=== PATIENT | male | born 1950 | race Asian ===

== ENCOUNTER 2017-08-18 06:38 | Inpatient (IN) | payer OTHER ==
[2017-08-18 06:54] VITALS: BMI 25.7
--- NOTE | 2017-08-18 06:58 | PDOC ---
History of Present Illness - General History Source: Family - History of Present Illness Initial Comments: 08/18/17 07:04 The patient is a 67 year old male, with a significant past medical history of TIA (2013), HTN, DM, HLD, cardiac cath September 2012, who presents to the emergency department brought in by family member for evaluation of slurred speech, left sided weakness, unsteady gait, generalized weakness and dizziness upon waking up this morning about 30 minutes prior to his ED arrival. The patient presents with family member who reportedly last saw the patient well before bed around midnight. As per the patient's family member, the patient is experiencing some dizziness at this time. He denies chest pain, shortness of breath, headache. He denies fever, chills, nausea, vomit, diarrhea and constipation. He denies dysuria, frequency, urgency and hematuria. Allergies: NKDA <Ene Cox - Last Filed: 08/18/17 07:04> - General History Source: Family Exam Limitations: Language Barrier <Mahin Calvillo - Last Filed: 08/18/17 19:44> - General Chief Complaint: CVA/TIA Stated Complaint: WEAKNESS Time Seen by Provider: 08/18/17 06:57 Past History <Ene Cox - Last Filed: 08/18/17 07:04> - Past Medical History Diabetes: Yes HTN: Yes Hypercholesterolemia: Yes - Suicide/Smoking/Psychosocial Hx Smoking Status: No Smoking History: Never smoked Have you smoked in the past 12 months: No Number of Cigarettes Smoked Daily: 0 Information on smoking cessation initiated: No Hx Alcohol Use: No Drug/Substance Use Hx: No Substance Use Type: None Hx Substance Use Treatment: No <Mahin Calvillo - Last Filed: 08/18/17 19:44> - Past Medical History Allergies/Adverse Reactions: Allergies Allergy/AdvReac Type Severity Reaction Status Date / Time No Known Allergies Allergy Verified 08/18/17 06:51 Home Medications: Ambulatory Orders Metformin HCl [Glucophage -] 500 mg PO BID 09/30/12 Acetaminophen/Caffeine/Butalb [Fioricet -] 1 each PO Q8H PRN #30 tablet Atorvastatin Ca [Lipitor] 40 mg PO HS #30 tablet 08/30/14 Clopidogrel Bisulfate [Plavix -] 75 mg PO DAILY #30 tablet 08/30/14 Gabapentin [Neurontin -] 100 mg PO DAILY #30 capsule 08/30/14 Ibuprofen [Motrin -] 600 mg PO Q6H PRN #30 tablet 08/30/14 Insulin (Novolog 70/30) [Novolog Mix 70/30 Flexpen -] 32 units SQ BIDAC #7 pen 08/30/14 Losartan Potassium [Cozaar -] 100 mg PO DAILY #30 tablet 08/30/14 Metoprolol Tartrate [Lopressor -] 25 mg PO BID #60 tablet 08/30/14 Aspirin [Children's Aspirin] 81 mg PO DAILY 08/18/17 Insulin Degludec [Tresiba Flextouch U-100] 15 unit SQ HS 08/18/17 Review of Systems - Review of Systems Able to Perform ROS?: Yes Comments:: 08/18/17 07:06 CONSTITUTIONAL: (+) generalized weakness, Absent: fever, chills, diaphoresis, malaise, loss of appetite HEENT: Absent: rhinorrhea, nasal congestion, throat pain, throat swelling, difficulty swallowing, mouth swelling, ear pain, eye pain, visual Changes CARDIOVASCULAR: Absent: chest pain, syncope, palpitations, irregular heart rate, lightheadedness , peripheral edema RESPIRATORY: Absent: cough, shortness of breath, dyspnea with exertion, orthopnea, wheezing, stridor, hemoptysis GASTROINTESTINAL: Absent: abdominal pain, abdominal distension, nausea, vomiting, diarrhea, constipation, melena, hematochezia GENITOURINARY: Absent: dysuria, frequency, urgency, hesitancy, hematuria, flank pain, genital pain MUSCULOSKELETAL: Absent: myalgia, arthralgia, joint swelling SKIN: Absent: rash, itching, pallor HEMATOLOGIC/IMMUNOLOGIC: Absent: easy bleeding, easy bruising, lymphadenopathy, frequent infections ENDOCRINE: Absent: unexplained weight gain, unexplained weight loss, heat intolerance, cold intolerance NEUROLOGIC: (+) dizziness, unsteady gait, left sided weakness. Absent: headache, focal paresthesias, seizure, mental status changes, bladder or bowel incontinence PSYCHIATRIC: Absent: anxiety, depression, suicidal or homicidal ideation, hallucinations. Is the patient limited Kiswahili proficient: Yes <Ene Cox - Last Filed: 08/18/17 07:04> *Physical Exam - Vital Signs Last Vital Signs Temp Pulse Resp BP Pulse Ox 97.7 F 87 14 170/107 97 08/18/17 06:51 08/18/17 06:51 08/18/17 06:51 08/18/17 06:51 08/18/17 06:51 - Physical Exam Comments: 08/18/17 07:08 GENERAL: Well developed, well nourished. Awake and alert. No acute distress. HEENT: Normocephalic, atraumatic. PERRLA, EOMI. No conjunctival pallor. Sclera are non- icteric. Moist mucous membranes. Oropharynx is clear. NECK: Supple. Full ROM. No JVD. Carotid pulses 2+ and symmetric, without bruits. No thyromegaly. No lymphadenopathy. CARDIOVASCULAR: Regular rate and rhythm. No murmurs, rubs, or gallops. Distal pulses are 2+ and symmetric. PULMONARY: No evidence of respiratory distress. Lungs clear to auscultation bilaterally. No wheezing, rales or rhonchi. ABDOMINAL: Soft. Non-tender. Non-distended. No rebound or guarding. No organomegaly. Normoactive bowel sounds. MUSCULOSKELETAL Normal range of motion at all joints. No bony deformities or tenderness. No CVA tenderness. EXTREMITIES: No cyanosis. No clubbing. No edema. No calf tenderness. SKIN: Warm and dry. Normal capillary refill. No rashes. No jaundice. NEUROLOGICAL: (+) slight slurred speech. Alert, awake, appropriate. Cranial nerves 2-12 intact. Normoreflexic in the upper and lower extremities. Toes are down-going bilaterally. PSYCHIATRIC: Cooperative. Good eye contact. Appropriate mood and affect. <Ene Cox - Last Filed: 08/18/17 07:04> - Vital Signs Last Vital Signs Temp Pulse Resp BP Pulse Ox 97.7 F 87 14 170/107 97 08/18/17 06:51 08/18/17 06:51 08/18/17 06:51 08/18/17 06:51 08/18/17 06:51 <Mahin Calvillo - Last Filed: 08/18/17 19:44> NIH Stroke Scale - Last Known Well Date/Time & Onset Date Last Known Well: 08/18/17 Time Last Known Well: 00:00 - Initial Evaluation Level of consciousness: Alert Ask patient the month and their age: Answers both correctly (helped by family member) Ask patient to open & close eyes; make fist and let go: Obeys both correctly ( helped by family) Best gaze (horizontal eye movement): Normal Visual field testing: No visual field loss Facial paresis (Show teeth/raise eyebrows/close eyes tight): Normal symmetrical movement Motor Function: Left Arm: Normal Motor Function: Right Arm: Normal (extends arm 90 (or 45) degrees for 10 seconds without drift Motor Function: Right Leg: Normal (extends leg 30 degrees for 5 seconds without drift) Limb Ataxia: No ataxia Sensory(Use pinprick test arms,legs,trunk,face/side to side): Normal Best language (Describe picture, name items, read sentences): Mild to moderate aphasia (possble as described by family member) Dysarthria (read several words): Mild to moderate slurring of words (possibly as described by family member) Extinction and Inattention: No abnormality <Mahin Calvillo - Last Filed: 08/18/17 19:44> Critical Care Time/MDM Note - Medical Decision Making Note: 08/18/17 07:09 Documentation prepared by Ene Cox, acting as medical appointment clerk for Mahin Calvillo DO <Ene Cox - Last Filed: 08/18/17 07:04> - Medical Decision Making Note: 08/18/17 19:44 Dr. Calvillo: The scribe's documentation has been prepared under my direction and personally reviewed by me in its entirery. I confirm that the note above accurately reflects all work, treatment, procedures, and medical decision making performed by me. <Mahin Calvillo - Last Filed: 08/18/17 19:44> Discharge Disposition <Ene Cox - Last Filed: 08/18/17 07:04> <Mahin Calvillo - Last Filed: 08/18/17 19:44> - Diagnosis Weakness, Cerebrovascular accident (CVA) - Discharge Dispostion Condition at time of disposition: Stable
[2017-08-18] MEDS ORDERED: SODIUM CHLORIDE 1,000 ML IV SCH (07:00)
[2017-08-18 07:29] LABS: BASOPHIL 0.7 % (0-2.0); EOSINOPHIL 1.3 % (0-4.5); MCHC 35.2 g/dl (32.0-35.9); MEAN CELL VOLUME 85.2 fl (80-96); NEUTROPHILS 69.7 % (42.8-82.8); PLATELET COUNT 157 K/MM3 (134-434); RDW 13.1 % (11.9-15.9); WHITE BLOOD COUNT 9.3 K/mm3 (4.0-10.0)
[2017-08-18 07:44] LABS: INR 0.97 (0.82-1.09)
[2017-08-18 08:06] LABS: URINE APPEARANCE CLEAR; URINE BILIRUBIN NEGATIVE (NEGATIVE); URINE COLOR LT. YELLOW; URINE GLUCOSE (UA) TRACE (NEGATIVE); URINE KETONE NEGATIVE (NEGATIVE); URINE NITRITE NEGATIVE (NEGATIVE); URINE PROTEIN NEGATIVE (NEGATIVE); URINE UROBILINOGEN 0.2 mg/dL (0.2-1.0)
[2017-08-18 08:09] LABS: URINE BLOOD TRACE (NEGATIVE)
[2017-08-18 08:15] LABS: ANION GAP 8 (8-16); BILIRUBIN,TOTAL 0.8 mg/dL (0.2-1.0); CALCIUM 8.5 mg/dL (8.5-10.1); CHOLESTEROL 111 mg/dL (50-200); CO2 26 mmol/L (21-32); CREATININE 0.9 mg/dL (0.7-1.3); GLUCOSE,RANDOM 95 mg/dL (74-106); SGPT/ALT 46 U/L (12-78); TOT PROT 8.1 g/dl (6.4-8.2)
[2017-08-18 08:16] LABS: ALK PHOS 98 U/L (45-117); CPK 193 IU/L (39-308); TROPONIN I < 0.02 ng/ml (0.00-0.05)
[2017-08-18 08:32] LABS: SGOT/AST 28 U/L (15-37)
[2017-08-18 08:35] LABS: URINE RBC <1 /hpf (0-3); URINE WBC <1 /hpf (3-5)
--- NOTE | 2017-08-18 08:53 | PDOC ---
*Physical Exam - Vital Signs Last Vital Signs Temp Pulse Resp BP Pulse Ox 97.7 F 87 14 170/107 97 08/18/17 06:51 08/18/17 06:51 08/18/17 06:51 08/18/17 06:51 08/18/17 06:51 <Carmita Gilman - Last Filed: 08/18/17 09:05> - Vital Signs Last Vital Signs Temp Pulse Resp BP Pulse Ox 97.7 F 87 14 170/107 97 08/18/17 06:51 08/18/17 06:51 08/18/17 06:51 08/18/17 06:51 08/18/17 06:51 <George Cobos - Last Filed: 08/18/17 09:10> ED Treatment Course - LABORATORY CBC & Chemistry Diagram: 08/18/17 07:10 08/18/17 07:10 - ADDITIONAL ORDERS Additional order review: Laboratory Results 08/18/17 08/18/17 08/18/17 08:11 07:50 07:10 PT with INR INR Sodium Potassium Chloride Carbon Dioxide Anion Gap BUN Creatinine Creat Clearance w eGFR POC Glucometer 100.08361 Random Glucose Calcium Total Bilirubin AST ALT Alkaline Phosphatase Creatine Kinase Troponin I Total Protein Albumin Triglycerides Cholesterol Total LDL Cholesterol HDL Cholesterol Urine Color Lt. yellow Urine Appearance Clear Urine pH 7.0 D Ur Specific [place] <= 1.005 Urine Protein Negative Urine Glucose (UA) Trace H Urine Ketones Negative Urine Blood Trace H Urine Nitrite Negative Urine Bilirubin Negative Urine Urobilinogen 0.2 Blood Type AB POSITIVE Antibody Screen Negative 08/18/17 08/18/17 07:10 07:10 PT with INR 11.00 INR 0.97 Sodium 140 Potassium 3.3 L Chloride 106 Carbon Dioxide 26 Anion Gap 8 BUN 17 Creatinine 0.9 Creat Clearance w eGFR > 60 POC Glucometer Random Glucose 95 Calcium 8.5 Total Bilirubin 0.8 D AST 28 D ALT 46 D Alkaline Phosphatase 98 D Creatine Kinase 193 Troponin I < 0.02 Total Protein 8.1 Albumin 4.0 Triglycerides 59 D Cholesterol 111 D Total LDL Cholesterol 62 D HDL Cholesterol 43 Urine Color Urine Appearance Urine pH Ur Specific [place] Urine Protein Urine Glucose (UA) Urine Ketones Urine Blood Urine Nitrite Urine Bilirubin Urine Urobilinogen Blood Type Antibody Screen 08/18/17 08/18/17 08:11 07:10 RBC 5.27 MCV 85.2 MCHC 35.2 RDW 13.1 MPV 9.0 Neutrophils % 69.7 Lymphocytes % 20.5 Monocytes % 7.8 Eosinophils % 1.3 Basophils % 0.7 POC Glucometer 100.45426 <Carmita Gilman - Last Filed: 08/18/17 09:05> - LABORATORY CBC & Chemistry Diagram: 08/18/17 07:10 08/18/17 07:10 - ADDITIONAL ORDERS Additional order review: Laboratory Results 08/18/17 08/18/17 08/18/17 08:11 07:50 07:10 PT with INR INR Sodium Potassium Chloride Carbon Dioxide Anion Gap BUN Creatinine Creat Clearance w eGFR POC Glucometer 100.55765 Random Glucose Calcium Total Bilirubin AST ALT Alkaline Phosphatase Creatine Kinase Troponin I Total Protein Albumin Triglycerides Cholesterol Total LDL Cholesterol HDL Cholesterol Urine Color Lt. yellow Urine Appearance Clear Urine pH 7.0 D Ur Specific [place] <= 1.005 Urine Protein Negative Urine Glucose (UA) Trace H Urine Ketones Negative Urine Blood Trace H Urine Nitrite Negative Urine Bilirubin Negative Urine Urobilinogen 0.2 Blood Type AB POSITIVE Antibody Screen Negative 08/18/17 08/18/17 07:10 07:10 PT with INR 11.00 INR 0.97 Sodium 140 Potassium 3.3 L Chloride 106 Carbon Dioxide 26 Anion Gap 8 BUN 17 Creatinine 0.9 Creat Clearance w eGFR > 60 POC Glucometer Random Glucose 95 Calcium 8.5 Total Bilirubin 0.8 D AST 28 D ALT 46 D Alkaline Phosphatase 98 D Creatine Kinase 193 Troponin I < 0.02 Total Protein 8.1 Albumin 4.0 Triglycerides 59 D Cholesterol 111 D Total LDL Cholesterol 62 D HDL Cholesterol 43 Urine Color Urine Appearance Urine pH Ur Specific [place] Urine Protein Urine Glucose (UA) Urine Ketones Urine Blood Urine Nitrite Urine Bilirubin Urine Urobilinogen Blood Type Antibody Screen 08/18/17 08/18/17 08:11 07:10 RBC 5.27 MCV 85.2 MCHC 35.2 RDW 13.1 MPV 9.0 Neutrophils % 69.7 Lymphocytes % 20.5 Monocytes % 7.8 Eosinophils % 1.3 Basophils % 0.7 POC Glucometer 100.05453 - RADIOLOGY Radiology Studies Ordered: Category Date Time Status BRAIN MRI W/O CONTRAST [MRI] Stat MRI 08/18/17 08:38 Ordered <George Cobos - Last Filed: 08/18/17 09:10> Medical Decision Making - Medical Decision Making 08/18/17 09:04 Dr. Erazo paged via office number at 8:00 AM. Patients case was discussed. Dr. Erazo paged via office number at 8:24 AM Patients case was discussed. Dr. Felix paged at 7:52 AM Awaiting call back. Dr. Felix paged via office number at 8:40 AM Awaiting call back. Dr. Felix paged via office number at 8:59 AM Awaiting call back. Paged Dr. Felix overhead. Awaiting call back. Dr. Felix returned the page at 9:03 AM and the patients case was discussed. <Carmita Gilman - Last Filed: 08/18/17 09:05> - Medical Decision Making 08/18/17 08:59 Patient signed out to me by pending CTH, labs, neuro eval for code morillo. FS 100. CT head is negative for acute stroke. On my evaluation, patient with mildly slurred speech and 4 out of 5 right lower extremity strength. Case discussed with Dr. Erazo, the patient's primary doctor who will admit the patient. MRI ordered. 08/18/17 09:[address] Felix. We will hold off on TPA since patient is out of the TPA window with last known normal 9+ hours ago. Full dose of aspirin and 80mg of Lipitor have been ordered. MR triple study is pending. Patient has been admitted to Dr. Erazo. Case discussed in detail with admitting physician including history, physical exam and ancillary studies. Admitting physician has assumed care for the patient, will follow all pending diagnostics and will complete the evaluation and treatment. <George Cobos - Last Filed: 08/18/17 09:10> *DC/Admit/Observation/Transfer - Attestations Scribe Attestion: 08/18/17 09:05 Documentation prepared by Carmita Gilman, acting as medical scientific liaison for George Cobos MD <Carmita Gilman - Last Filed: 08/18/17 09:05> - Discharge Dispostion Admit: Yes - Attestations Physician Attestion: 08/18/17 09:01 I, Dr. George Cobos MD, attest that this document has been prepared under my direction and personally reviewed by me in its entirety. I further attest, that it accurately reflects all work, treatment, procedures and medical decision -making performed by me. <George Cobos - Last Filed: 08/18/17 09:10> Diagnosis at time of Disposition: Weakness, Cerebrovascular accident (CVA) - Discharge Dispostion Condition at time of disposition: Stable - Referrals Referrals: Cathy Erazo [Staff Physician] - - Patient Instructions - Post Discharge Activity
[2017-08-18] MEDS ORDERED: ASPIRIN 325 MG TABLET PO ONE (09:06)
[2017-08-18] MEDS ORDERED: ATORVASTATIN CA 80 MG TABLET (FP) PO ONE (09:06)
[2017-08-18] MEDS ORDERED: ASPIRIN 325 MG TABLET ONE (09:11)
[2017-08-18] MEDS ORDERED: ATORVASTATIN CA 80 MG TABLET (FP) ONE (09:11)
[2017-08-18 11:40] LABS: URINE LEUK ESTERASE Negative (NEGATIVE)
--- NOTE | 2017-08-18 12:54 | EKG ---
Test Reason : Blood Pressure : / mmHG Vent. Rate : 086 BPM Atrial Rate : 086 BPM P-R Int : 182 ms QRS Dur : 092 ms QT Int : 428 ms P-R-T Axes : 042 -62 083 degrees QTc Int : 512 ms NORMAL SINUS RHYTHM POSSIBLE LEFT ATRIAL ENLARGEMENT INCOMPLETE RIGHT BUNDLE BRANCH BLOCK LEFT ANTERIOR FASCICULAR BLOCK LEFT VENTRICULAR HYPERTROPHY CANNOT RULE OUT SEPTAL INFARCT (CITED ON OR BEFORE 30-MAY-2012) PROLONGED QT ABNORMAL ECG WHEN COMPARED WITH ECG OF 27-JUL-2017 10:55, T WAVE INVERSION LESS EVIDENT IN LATERAL LEADS Confirmed by LUISANA TORRES MD ([id number]) on 08/18/2017 12:53:26 PM Referred By: Confirmed By:LUISANA TORRES MD
--- NOTE | 2017-08-18 19:18 | CONSULT ---
Consult - text type - Consultation Consultation Note: NEUROLOGY CONSULTATION is greatly appreciated: This 67 yo [place] speaking man is seen with a family member who aides in translation. H/O DM x 20 years. Pt awoke around 3 AM with right sided weakness. CT of head (Reviewed): Scattered microvascular changes. YIFAN: No bruits. Cor Reg. NEURO: Awake, alert. Reportedly fluent. Full visual griffin. Mild R eye blink asymmetry. Gag OK but tongue KATINA's appear to be reduced Right drift. Decreased KATINA's on R Leg strength normal. Normal reflexes except absent AJ's B/L Decreased pin R arm with Right sensory dystaxia Decreased vib feet Mild right circumduction. Sl. wide based. IMP: New left cerebral dysfunction. Probably a lacunar infarct in the posterior limb of the left internal capsule. (The principle deficit is a sensory dystaxia). Underlying diabetic peripheral neuroppathy. SUGGEST: Agree completely with MRI of brain and vascular studies as ordered. Telemetry. Clopidogrel, atorvastatin, glucose and BP control. PT Eval and Rx. Thank you very much, David Felix MD
[2017-08-18] MEDS ORDERED: LOSARTAN POTASSIUM 50 MG TABLET (FP) PO ONE (21:13)
[2017-08-18] MEDS ORDERED: FLU VACCINE QUAD 60 MCG/0.5 ML (MDV 17-18) IM ONE (21:30)
[2017-08-18] MEDS ORDERED: ASPIRIN 81 MG CHEWABLE TABLETS PO ONE (23:35)
--- NOTE | 2017-08-18 23:40 | HP ---
CHIEF COMPLAINT: B/l UE and LE weakness PCP: Dr. Erazo HISTORY OF PRESENT ILLNESS: Dm Sosa is a 67 M with pmh TIA, HTN, HLD, and cardiac cath in 2012presenting with b/l UE and LE weakness and slurred speech. Patient states his sx began during sleep last night. Patient endorses slurred speech, left sided weakness, unsteady gait, generalized weakness and dizziness. Patient denies fever, chills , nausea, vomiting, blurry vision, chest pain, history of abnormal heart rhythm , abd pain. ER course was notable for: (1) BP- 180/110, CBC CMP trop lipid profile unremarkable (2) UA negative (3) Head CT-Negative Recent Travel: denies PAST MEDICAL HISTORY: as per hpi PAST SURGICAL HISTORY: unknown Social History: Smoking: denies Alcohol: denies Drugs: denies Family History: Allergies No Known Allergies Allergy (Verified 08/18/17 06:51) HOME MEDICATIONS: Home Medications Medication Instructions Recorded Metformin HCl [Glucophage -] 500 mg PO BID 09/30/12 Acetaminophen/Caffeine/Butalb 1 each PO Q8H PRN #30 tablet 08/30/14 [Fioricet -] Atorvastatin Ca [Lipitor] 40 mg PO HS #30 tablet 08/30/14 Clopidogrel Bisulfate [Plavix -] 75 mg PO DAILY #30 tablet 08/30/14 Gabapentin [Neurontin -] 100 mg PO DAILY #30 capsule 08/30/14 Ibuprofen [Motrin -] 600 mg PO Q6H PRN #30 tablet 08/30/14 Insulin (Novolog 70/30) [Novolog 32 units SQ BIDAC #7 pen 08/30/14 Mix 70/30 Flexpen -] Losartan Potassium [Cozaar -] 100 mg PO DAILY #30 tablet 08/30/14 Metoprolol Tartrate [Lopressor -] 25 mg PO BID #60 tablet 08/30/14 Aspirin [Children's Aspirin] 81 mg PO DAILY 08/18/17 Insulin Degludec [Tresiba 15 unit SQ HS 08/18/17 Flextouch U-100] REVIEW OF SYSTEMS CONSTITUTIONAL: Absent: fever, chills, diaphoresis, generalized weakness, malaise, loss of appetite, weight change HEENT: Absent: rhinorrhea, nasal congestion, throat pain, throat swelling, difficulty swallowing, mouth swelling, ear pain, eye pain, visual changes CARDIOVASCULAR: Absent: chest pain, syncope, palpitations, irregular heart rate, lightheadedness , peripheral edema RESPIRATORY: Absent: cough, shortness of breath, dyspnea with exertion, orthopnea, wheezing, stridor, hemoptysis GASTROINTESTINAL: Absent: abdominal pain, abdominal distension, nausea, vomiting, diarrhea, constipation, melena, hematochezia GENITOURINARY: Absent: dysuria, frequency, urgency, hesitancy, hematuria, flank pain, genital pain MUSCULOSKELETAL: Absent: myalgia, arthralgia, joint swelling, back pain, neck pain SKIN: Absent: rash, itching, pallor HEMATOLOGIC/IMMUNOLOGIC: Absent: easy bleeding, easy bruising, lymphadenopathy, frequent infections ENDOCRINE: Absent: unexplained weight gain, unexplained weight loss, heat intolerance, cold intolerance NEUROLOGIC: Absent: headache, focal weakness or paresthesias, dizziness, unsteady gait, seizure, mental status changes, bladder or bowel incontinence PSYCHIATRIC: Absent: anxiety, depression, suicidal or homicidal ideation, hallucinations. PHYSICAL EXAMINATION Vital Signs - 24 hr 08/18/17 08/18/17 08/18/17 06:51 12:09 15:35 Temperature 97.7 F Pulse Rate 87 Pulse Rate [ 77 79 Left] Respiratory 14 16 18 Rate Blood Pressure 170/107 Blood Pressure 150/90 195/99 [Arm] O2 Sat by Pulse 97 100 100 Oximetry (%) 08/18/17 08/18/17 08/18/17 16:19 19:02 19:30 Temperature 97.5 F L 98 F 98.6 F Pulse Rate 78 82 Pulse Rate [ 76 Left] Respiratory 16 18 18 Rate Blood Pressure 180/90 196/113 Blood Pressure 185/96 [Arm] O2 Sat by Pulse 99 Oximetry (%) 08/18/17 22:50 Temperature Pulse Rate 81 Pulse Rate [ Left] Respiratory 20 Rate Blood Pressure 186/111 Blood Pressure [Arm] O2 Sat by Pulse Oximetry (%) GENERAL: Awake, alert, and fully oriented, in no acute distress. HEAD: Normal with no signs of trauma. EYES: Pupils equal, round and reactive to light, extraocular movements intact, sclera anicteric, conjunctiva clear. No lid lag. EARS, NOSE, THROAT: oropharynx clear without exudates. Moist mucous membranes. NECK: Normal range of motion, supple without lymphadenopathy, JVD, or masses. No carotid Bruits LUNGS: Breath sounds equal, clear to auscultation bilaterally. No wheezes, and no crackles. No accessory muscle use. HEART: Regular rate and rhythm, normal S1 and S2 without murmur, rub or gallop. ABDOMEN: Soft, nontender, not distended, normoactive bowel sounds, no guarding, no rebound, no masses. No hepatomegaly or splenomegaly. MUSCULOSKELETAL: Normal range of motion at all joints. No bony deformities or tenderness. No CVA tenderness. UPPER EXTREMITIES: 2+ pulses, warm, well-perfused. No cyanosis. No clubbing. No peripheral edema. LOWER EXTREMITIES: 2+ pulses, warm, well-perfused. No calf tenderness. No peripheral edema. NEUROLOGICAL: Cranial nerves II-XII intact. Mild slurred speech. 5/5 strenght b /l, sensation intact bilaterally in UE PSYCHIATRIC: Cooperative. Good eye contact. Appropriate mood and affect. SKIN: Warm, dry, normal turgor, no rashes or lesions noted, normal capillary refill. Laboratory Results - last 24 hr 08/18/17 08/18/17 08/18/17 07:10 07:10 07:10 WBC 9.3 RBC 5.27 Hgb 15.8 Hct 44.9 MCV 85.2 MCH 30.0 MCHC 35.2 RDW 13.1 Plt Count 157 MPV 9.0 Neutrophils % 69.7 Lymphocytes % 20.5 Monocytes % 7.8 Eosinophils % 1.3 Basophils % 0.7 PT with INR 11.00 INR 0.97 Sodium 140 Potassium 3.3 L Chloride 106 Carbon Dioxide 26 Anion Gap 8 BUN 17 Creatinine 0.9 Creat Clearance w eGFR > 60 POC Glucometer Random Glucose 95 Calcium 8.5 Total Bilirubin 0.8 D AST 28 D ALT 46 D Alkaline Phosphatase 98 D Creatine Kinase 193 Creatine Kinase Index 1.2 CK-MB (CK-2) 2.426 Troponin I < 0.02 Total Protein 8.1 Albumin 4.0 Triglycerides 59 D Cholesterol 111 D Total LDL Cholesterol 62 D HDL Cholesterol 43 Urine Color Urine Appearance Urine pH Ur Specific [place] Urine Protein Urine Glucose (UA) Urine Ketones Urine Blood Urine Nitrite Urine Bilirubin Urine Urobilinogen Ur Leukocyte Esterase Urine WBC (Auto) Urine RBC (Auto) Blood Type Antibody Screen 08/18/17 08/18/17 08/18/17 07:10 07:50 08:11 WBC RBC Hgb Hct MCV MCH MCHC RDW Plt Count MPV Neutrophils % Lymphocytes % Monocytes % Eosinophils % Basophils % PT with INR INR Sodium Potassium Chloride Carbon Dioxide Anion Gap BUN Creatinine Creat Clearance w eGFR POC Glucometer 100.30495 Random Glucose Calcium Total Bilirubin AST ALT Alkaline Phosphatase Creatine Kinase Creatine Kinase Index CK-MB (CK-2) Troponin I Total Protein Albumin Triglycerides Cholesterol Total LDL Cholesterol HDL Cholesterol Urine Color Lt. yellow Urine Appearance Clear Urine pH 7.0 D Ur Specific [place] <= 1.005 Urine Protein Negative Urine Glucose (UA) Trace H Urine Ketones Negative Urine Blood Trace H Urine Nitrite Negative Urine Bilirubin Negative Urine Urobilinogen 0.2 Ur Leukocyte Esterase Negative Urine WBC (Auto) <1 Urine RBC (Auto) <1 Blood Type AB POSITIVE Antibody Screen Negative ASSESSMENT/PLAN: 67 year old M with pmh of TIA, HTN, HLD, and cardiac cath presenting with b/l UE and LE weakness admitted for acute CVA #Acute ischemic CVA -Echocardiogram pending -Carotid U/s Pending -MRI/MRA brain/neck completed -Aspirin 81 mg po daily -Lipitor 80 mg po hs -Plavix 75 mg po daily -Neurology consulted, Dr. Felix -Per Dr. Felix, patient to get labetolol + soft diet + IVF @ 21 cc/hr -HbA1c -Monitor blood pressure -Speech/Swallow consult -PT consult #HTN -Losartan 50 mg po daily #HLD -Lipitor 80 mg po hs #DM -Hold metformin -BGM achs -ISS achs #FEN/GI -1/2 ns @ 42 cc/hr -wnl -soft diet, pending speech/swallow #PPx -heparin 5000 units tid -no gi ppx Home medications need to be confirmed Case discussed with team Visit type - Emergency Visit Emergency Visit: Yes ED Registration Date: 08/18/17 Care time: The patient presented to the Emergency Department on the above date and was hospitalized for further evaluation of their emergent condition. - New Patient This patient is new to me today: Yes Date on this admission: 08/23/17 - Critical Care Critical Care patient: No
--- NOTE | 2017-08-18 23:41 | MSN ---
Admitting History and Physical - Admission Chief Complaint: Slurred speech and weakness History of Present Illness: Dm Sosa is a 67 year old male, Romansh speaking, with pmhx of TIA (2013), HTN , DM, HLD, who presents with slurred speech and weakness of upper and lower extremities bilaterally, which began suddenly yesterday night when he was sleeping. Patient states that he's unable to hold anything in his hands. Patient states that prior to this incident he was able to ambulate at home. Patient states that he has a nurse that comes to his house. Patient also reports pain in his eyes and states he recently had cataract surgery. He also reports numbness and tingling in his right upper extremity and history of prior stroke. Patient denies chest pain, SOB, nausea, vomiting or history of afib. ER course was notable for: 1. BP 180/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 Cardiovascular: Yes: HTN, Hyperlipdemia Endocrine: Yes: Diabetes Mellitus - Past Surgical History Past Surgical History: Yes: Cataract Removal - Smoking History Smoking history: Never smoked Have you smoked in the past 12 months: No Aproximately how many cigarettes per day: 0 - Alcohol/Substance Use Hx Alcohol Use: No - Social History ADL: Independent History of Recent Travel: No Home Medications - Allergies Allergies/Adverse Reactions: Allergies Allergy/AdvReac Type Severity Reaction Status Date / Time No Known Allergies Allergy Verified 08/18/17 06:51 - Home Medications Home Medications: Ambulatory Orders Metformin HCl [Glucophage -] 500 mg PO BID 09/30/12 Acetaminophen/Caffeine/Butalb [Fioricet -] 1 each PO Q8H PRN #30 tablet Atorvastatin Ca [Lipitor] 40 mg PO HS #30 tablet 08/30/14 Clopidogrel Bisulfate [Plavix -] 75 mg PO DAILY #30 tablet 08/30/14 Gabapentin [Neurontin -] 100 mg PO DAILY #30 capsule 08/30/14 Ibuprofen [Motrin -] 600 mg PO Q6H PRN #30 tablet 08/30/14 Insulin (Novolog 70/30) [Novolog Mix 70/30 Flexpen -] 32 units SQ BIDAC #7 pen 08/30/14 Losartan Potassium [Cozaar -] 100 mg PO DAILY #30 tablet 08/30/14 Metoprolol Tartrate [Lopressor -] 25 mg PO BID #60 tablet 08/30/14 Aspirin [Children's Aspirin] 81 mg PO DAILY 08/18/17 Insulin Degludec [Tresiba Flextouch U-100] 15 unit SQ HS 08/18/17 Review of Systems - Review of Systems Constitutional: reports: Weakness Eyes: reports: Eye Pain HENT: reports: No Symptoms Neck: reports: No Symptoms Cardiovascular: reports: No Symptoms Respiratory: reports: No Symptoms Gastrointestinal: reports: No Symptoms Genitourinary: reports: No Symptoms Integumentary: reports: No Symptoms Neurological: reports: Change in Speech (dysarthria), Numbness (numbness and tingling of right upper extremity), Parasthesia, Weakness (weakness of upper and lower extremities bilaterally) Endocrine: reports: No Symptoms Physical Examination Vital Signs: Vital Signs Temperature 98.6 F 08/18/17 19:30 Pulse Rate 81 08/18/17 22:50 Respiratory Rate 20 08/18/17 22:50 Blood Pressure 186/11 08/18/17 22:50 O2 Sat by Pulse Oximetry (%) 99 08/18/17 16:19 Constitutional: Yes: Well Nourished, No Distress, Calm Eyes: Yes: Conjunctiva Clear, EOM Intact, PERRL HENT: Yes: Atraumatic, Normocephalic Neck: Yes: Supple, Trachea Midline Cardiovascular: Yes: Regular Rate and Rhythm Respiratory: Yes: Regular, CTA Bilaterally Gastrointestinal: Yes: Normal Bowel Sounds, Soft Edema: No Integumentary: Yes: WNL Neurological: Yes: Alert, Oriented, Dysarthria, Facial Droop (mild left sided lower facial droop), Other (5/5 strength in bilateral upper and lower extremities) ...Motor Strength: WNL Labs: CBC, BMP 08/18/17 07:10 08/18/17 07:10 Assessment/Plan Dm Sosa is a 67 year old male with pmhx of TIA (2013), HTN, DM, HLD, who presents with dysarthria and weakness. Patient was admitted for CVA. 1. Weakness secondary to CVA - MRI showed acute infarct in posterolateral aspect of left thalamus with no significant mass effect - No carotid bruit noted - Order echo, carotid doppler - ASA- 81mg PO daily - Lipitor- 80mg PO daily - 1L NS - Order lipid profile, HbA1c - NPO - Speech and swallow - Physical therapy - Neuro on board- Dr. Felix 2. HTN - Monitor blood pressure - Losartan 50 mg daily 3. HLD - Lipitor 80 mg daily 4. DM - Hold DM meds - ISS 5. DVT Proph - Heparin 5000U SQ
[2017-08-18] MEDS ORDERED: SODIUM CHLORIDE 0.45% 1,000 ML IV SCH (23:45)
[2017-08-19] MEDS ORDERED: LABETALOL HCL 100 MG TABLET (FP) PO ONE (00:41)
[2017-08-19] MEDS ORDERED: SODIUM CHLORIDE 0.45% 1,000 ML IV SCH (00:43)
--- NOTE | 2017-08-19 00:58 | PN ---
Teaching Attending Note Name of Resident: Giuseppe Stanley ATTENDING PHYSICIAN STATEMENT I saw and evaluated the patient. I reviewed the resident's note and discussed the case with the resident. I agree with the resident's findings and plan as documented. SUBJECTIVE: 67 Male that presented to the ed on 07/2917 with UE and LE weakness and slurred speech. In the ED he found to have dysarthria but was found to be out of the window for TPA. Neurology was consulted and patient was hospitalized for further evaluation with orders by neurology . We assumed care of this patient at 9:30 PM on 08/18 PAST MEDICAL HISTORY: TIA HTN HLD CAD PAST SURGICAL HISTORY: unknown Social History: Smoking: denies Alcohol: denies Drugs: denies OBJECTIVE: Vital Signs Temperature 98.6 F 08/18/17 19:30 Pulse Rate 83 08/18/17 23:54 Respiratory Rate 20 08/18/17 23:54 Blood Pressure 180/107 08/18/17 23:54 O2 Sat by Pulse Oximetry (%) 99 08/18/17 16:19 HEART: Regular rate and rhythm, normal S1 and S2 without murmur, rub or gallop. ABDOMEN: Soft, nontender, not distended, normoactive bowel sounds, no guarding, no rebound, no masses. No hepatomegaly or splenomegaly. MUSCULOSKELETAL: Normal range of motion at all joints. No bony deformities or tenderness. No CVA tenderness. UPPER EXTREMITIES: 2+ pulses, warm, well-perfused. No cyanosis. No clubbing. No peripheral edema. LOWER EXTREMITIES: 2+ pulses, warm, well-perfused. No calf tenderness. No peripheral edema. NEUROLOGICAL: Cranial nerves II-XII intact. Mild slurred speech. 5/5 strenght b /l, sensation intact bilaterally in UE PSYCHIATRIC: Cooperative. Good eye contact. Appropriate mood and affect. CBC, BMP 08/18/17 07:10 08/18/17 07:10 CT brain negative ASSESSMENT AND PLAN: 1.Acute CVA - MRI brain -Echocardiogram -Carotid U/s Pending -Aspirin 81 mg po daily -Lipitor 80 mg po hs -Plavix 75 mg po daily -Monitor blood pressure -Speech/Swallow consult -PT consult 2.HTN -Losartan 50 mg po daily - allow permissive HTN 3. HLD -Lipitor 80 mg po hs 4. DM -Hold metformin -BGM achs -ISS achs 5. PPx -heparin 5000 units tid -no gi ppx
[2017-08-19] MEDS ORDERED: NITROGLYCERIN 2% OINTMENT - 1GM PACKET TD ONE (01:00)
[2017-08-19] MEDS: HEPARIN NA (PORCINE) 5,000 UNITS/ML 1ML VIAL SQ SCH ×3 (05:48→21:24)
[2017-08-19] MEDS: INSULIN SLIDING SCALE (NOVOLOG) 1 VIAL SQ SCH ×4 (06:22→21:48)
[2017-08-19 07:09] LABS: BASOPHIL 0.5 % (0-2.0); EOSINOPHIL 0.8 % (0-4.5); MCH 29.9 pg (25.7-33.7); MCHC 34.8 g/dl (32.0-35.9); MEAN CELL VOLUME 85.8 fl (80-96); NEUTROPHILS 75.2 % (42.8-82.8); PLATELET COUNT 153 K/MM3 (134-434); WHITE BLOOD COUNT 8.6 K/mm3 (4.0-10.0)
[2017-08-19 07:39] LABS: ANION GAP 9 (8-16); CALCIUM 8.5 mg/dL (8.5-10.1); CO2 25 mmol/L (21-32)
[2017-08-19 07:53] LABS: GLUCOSE,RANDOM 318 mg/dL (74-106)
[2017-08-19] MEDS: CLOPIDOGREL BISULFATE 75 MG TABLET (FP) PO SCH (10:00)
[2017-08-19] MEDS: ASPIRIN 81 MG CHEWABLE TABLETS PO SCH (10:00)
--- NOTE | 2017-08-19 10:52 | PN ---
Progress Note (short form) - Note Progress Note: NEUROLOGY FOLLOW-UP: Events reviewed and discussed with RN last night. Patient examined. BP's were 180-190/110 last PM. Given, losartan, nitropaste and labetolol. BP's 130-140/80-90 this morning. MRI of brain (reviewed): shows a 1 cm lacunar infarct in the left posterior thalamus/internal capsule MRI: Scattered atheromatous disease without sig stenosis EXAM: Awake, alert. In NAD. Normal vision and facial strength. Gag fine Mild right drift with sensory dystaxia. Gait improved. IMP: Doing well after left thalamic lacunar infarct. SUGGEST: LONG-TERM BP control Cardiology consultation, please. Clopidogrel 75 qd. Statin Rx. PT eval and Rx. resident services director for brief rehab placement. Thank you very much, David Felix MD
--- NOTE | 2017-08-19 11:22 | CONSULT ---
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 Cardiovascular: Yes: HTN, Hyperlipdemia Endocrine: Yes: Diabetes Mellitus - Past Surgical History Past Surgical History: Yes: Cataract Removal - Smoking History Smoking history: Never smoked Have you smoked in the past 12 months: No Aproximately how many cigarettes per day: 0 - Alcohol/Substance Use Hx Alcohol Use: No - Social History ADL: Independent History of Recent Travel: No History - Admission Reason For Visit: CVA - Diagnostics CT Scan: Report Reviewed (Scattered microvascular changes.) MRI: Report Reviewed (MRI of brain (reviewed): shows a 1 cm lacunar infarct in the left posterior thalamus/internal capsule MRI: Scattered atheromatous disease without sig stenosis) - General Mental Status: Awake and Alert, Able to Follow Commands (gesture) Attention: Intact Head/Neck Control: WFL - Hearing Hearing: Functional Hearing: Normal Speech Evaluation - Communication Primary Language: MANDARIN Communication: Yes: Within Normal Limits, Simple Responses, Dysarthria (mild? Daughter reports speech is better today than yesterday.) - Speech Production Intelligibility: Yes: Mildly Impaired - Speech Characteristics Voice Loudness: Mildly Soft/Quiet Voice Pitch: Yes: Normal Voice Phonatory-based Quality: Yes: Dysphonia (mild) Speech Clarity: < 100% Nasal Resonance: Normal Articulation: Yes: Imprecise (slight) - Language/Verbal Expression Able to Respond to Simple Queries: Yes: WNL Able to Communicate Wants and Needs: Yes: WNL Functional Communication Status: Yes: WNL - Swallow Evaluation/Bedside Assessment Current Nutritional Intake: Soft Oral Secretions: Yes: WFL Dentition: Yes: Adequate Facial Symmetry at Rest: Symmetrical Facial Symmetry on Retraction: Symmetrical Facial Movement: Controlled Against Resistance Opening: Normal Against Resistance Closing: Normal Pucker Lips: Normal Smile: Normal Lingual Movement: Normal, Symmetric Lingual Speed of Movement: Normal Lingual Movement Strgth Against Opposition: Normal Lingual Movement Characteristics: Normal Velopharyngeal Movement: Normal Laryngeal Elevation: WFL Laryngeal Movement: Able to Palpate Rate of Intake: WFL Bolus Size: WFL Labial Seal: WFL Chewing: WFL Oral Prep Time: WFL A-P Transit: WFL Pocketing: None Timing of Swallow: WFL Coughing/Throat Clear: No Change in Voice: No Recommendations - Speech Evaluation, Impression/Plan Impression: Mild dysarthria (?), improving per daughter as compared to yesterday. Swallowing intact. Will likely to continue to spontaneously recover. - Dysphagia Impressions/Plan Swallowing Skills: WF Dysphagia Impressions: No Impairment *Silent aspiration: cannot be R/O at bedside Dysphagia Treatment Plan: Safe Rate, OOB for meals, OOB for 1 h. after meals Recommendations: Modified Barium Swallow (If signs of dysphagia reported or observed.) - Recommendations Diet Consistency: Regular Medication Administration: Whole with water Liquids: Thin Liquids
--- NOTE | 2017-08-19 13:41 | MSN ---
Progress Note (short form) - Note Progress Note: SUBJECTIVE Pt is a 67 y/o M, only Scottish speaking, with PMhx of TIA (2013), HTN, DM, CAD ( cardiac cath in Sep 2012), HLD, who presented to the ER with R sided weakness, questionable slurred speech, and unsteady gait. Pt didn't receive tpa due to being out of time window. Had been walking prior to this but is now unsteady. On presentation, pt had elevated BP of 170/107, is out of his normal range. Per son, pt sometimes forgets to take his meds. Pt looked well and in no acute distress. Had no complaints. Pt stated weakness is about the same. Denied any CP , SOB, or GUZMAN. OBJECTIVE Last Vital Signs Temp Pulse Resp BP Pulse Ox 97.2 F L 82 18 143/87 99 08/19/17 05:23 08/19/17 05:23 08/19/17 05:23 08/19/17 05:23 08/18/17 16:19 GEN: NAD HEENT: PERRLA, EOMI CV: RRR S1 S2 No MRG LUNG: CTA b/l ABD: +bowel sounds, soft, ND, NT MSK: 5/5 strength UE and LE b/l; normal ROM NEURO: CN II-XII grossly intact; no facial droop or slurring of speech; sensation intact; unsteady gait Laboratory Last Values WBC 8.6 K/mm3 (4.0-10.0) 08/19/17 05:05 RBC 5.05 M/mm3 (4.00-5.60) 08/19/17 05:05 Hgb 15.1 GM/dL (11.7-16.9) 08/19/17 05:05 Hct 43.3 % (35.4-49) 08/19/17 05:05 MCV 85.8 fl (80-96) 08/19/17 05:05 MCH 29.9 pg (25.7-33.7) 08/19/17 05:05 MCHC 34.8 g/dl (32.0-35.9) 08/19/17 05:05 RDW 13.0 % (11.9-15.9) 08/19/17 05:05 Plt Count 153 K/MM3 (134-434) 08/19/17 05:05 MPV 9.0 fl (7.5-11.1) 08/19/17 05:05 Neutrophils % 75.2 % (42.8-82.8) 08/19/17 05:05 Lymphocytes % 16.5 % (8-40) 08/19/17 05:05 Monocytes % 7.0 % (3.8-10.2) 08/19/17 05:05 Eosinophils % 0.8 % (0-4.5) 08/19/17 05:05 Basophils % 0.5 % (0-2.0) 08/19/17 05:05 PT with INR 11.00 SEC (9.98-11.88) 08/18/17 07:10 INR 0.97 (0.82-1.09) 08/18/17 07:10 Sodium 139 mmol/L (136-145) 08/19/17 05:05 Potassium 3.4 mmol/L (3.5-5.1) L 08/19/17 05:05 Chloride 105 mmol/L (98-107) 08/19/17 05:05 Carbon Dioxide 25 mmol/L (21-32) 08/19/17 05:05 Anion Gap 9 (8-16) 08/19/17 05:05 BUN 18 mg/dL (7-18) 08/19/17 05:05 Creatinine 1.0 mg/dL (0.7-1.3) 08/19/17 05:05 Creat Clearance w eGFR > 60 (>60) 08/18/17 07:10 POC Glucometer 278 UNITS (80-120) 08/19/17 12:20 Random Glucose 318 mg/dL (74-106) H* D 08/19/17 05:05 Hemoglobin A1c % 9.6 % (4.8-6.0) H D 08/19/17 05:05 Calcium 8.5 mg/dL (8.5-10.1) 08/19/17 05:05 Total Bilirubin 0.8 mg/dL (0.2-1.0) D 08/18/17 07:10 AST 28 U/L (15-37) D 08/18/17 07:10 ALT 46 U/L (12-78) D 08/18/17 07:10 Alkaline Phosphatase 98 U/L (45-117) D 08/18/17 07:10 Creatine Kinase 193 IU/L (39-308) 08/18/17 07:10 Creatine Kinase Index 1.2 % (0.0-5.0) 08/18/17 07:10 CK-MB (CK-2) 2.426 ng/mL (0.5-3.6) 08/18/17 07:10 Troponin I < 0.02 ng/ml (0.00-0.05) 08/18/17 07:10 Total Protein 8.1 g/dl (6.4-8.2) 08/18/17 07:10 Albumin 4.0 g/dl (3.4-5.0) 08/18/17 07:10 Triglycerides 59 mg/dL (35-160) D 08/18/17 07:10 Cholesterol 111 mg/dL (50-200) D 08/18/17 07:10 Total LDL Cholesterol 62 mg/dL (5-100) D 08/18/17 07:10 HDL Cholesterol 43 mg/dL (40-60) 08/18/17 07:10 Urine Color Lt. yellow 08/18/17 07:50 Urine Appearance Clear 08/18/17 07:50 Urine pH 7.0 (5.0-8.0) D 08/18/17 07:50 Ur Specific [place] <= 1.005 (1.001-1.035) 08/18/17 07:50 Urine Protein Negative (NEGATIVE) 08/18/17 07:50 Urine Glucose (UA) Trace (NEGATIVE) H 08/18/17 07:50 Urine Ketones Negative (NEGATIVE) 08/18/17 07:50 Urine Blood Trace (NEGATIVE) H 08/18/17 07:50 Urine Nitrite Negative (NEGATIVE) 08/18/17 07:50 Urine Bilirubin Negative (NEGATIVE) 08/18/17 07:50 Urine Urobilinogen 0.2 mg/dL (0.2-1.0) 08/18/17 07:50 Ur Leukocyte Esterase Negative (NEGATIVE) 08/18/17 07:50 Urine WBC (Auto) <1 /hpf (3-5) 08/18/17 07:50 Urine RBC (Auto) <1 /hpf (0-3) 08/18/17 07:50 Blood Type AB POSITIVE 08/18/17 07:10 Antibody Screen Negative 08/18/17 07:10 Home Medications Medication Instructions Recorded Insulin (Novolog 70/30) [Novolog 32 units SQ BIDAC #7 pen 08/30/14 Mix 70/30 Flexpen -] Losartan Potassium [Cozaar -] 100 mg PO DAILY #30 tablet 08/30/14 Aspirin [Children's Aspirin] 81 mg PO DAILY 08/18/17 Insulin Degludec [Tresiba 15 unit SQ HS 08/18/17 Flextouch U-100] IMAGING Head CT: no evidence of acute intracranial hemorrhage, edema, midline shift, mass effect, skull fracture, or acute territorial ischemic changes Brain MRI w/o contrast: acute infarct in the posterolateral L thalamus with no mass effect; generalized age-related volume loss with mild chronic microvascular changes Neck MRA w/o contrast: no stenosis in common carotid, cervical segments of internal carotid or vertebral arteries; 24% luminal narrowing at R internal carotid artery Brain MRA w/o contrast: patent [place] of [place]; moderate luminal narrowing in distal M1 segment of R MCA at bifurcation; moderate luminal narrowing in P2 segment on R [employer] AP Pt is a 67y/o M with PMHx of TIA, HTN, DM, CAD, and HLD who presented with b/l UE and LE weakness, slurred speech, and unsteady gait, was admitted for acute ischemic CVA. 1. Acute Ischemic CVA -in posterolateral L thalamus with residual R sided weakness, ?slurred speech vs language barrier -out of tpa window -head CT neg for bleed -echo shows no thrombus, unlikely embolic -pending results of carotid U/S -since pt had stroke on aspirin, will add plavix 75 QD -start lipitor 80 mg QD -regular diet recommended by Speech/Swallow -unsteady with PT (50 ft), recommends continued therapy 2. HTN emergency -presented with 170s/110s; likely due to noncompliance; resolved with labetelol 100 mg; BP dropped to 130s-140s/80s -allow permissive HTN, systolic to 180 and diastolic up to 99 -if higher than goal stated, can give losartan 50 mg 3. DM -HbA1C: 9.6 -ISS; BGM ACHS 4. HLD -lipitor 80 mg QD 5. FEN -No IVFs -lytes wnl; continue monitoring;replete as necessary -regular diet 6. PPx -DVT: Heparin SQ TID -No GI Ppx Dispo: Continue stroke work-up; awaiting results of carotid U/S; gait needs to be stabilized before D/C (consider SNF if still unsteady) Idania Vaughan, MS3
[2017-08-19] MEDS ORDERED: LOSARTAN POTASSIUM 50 MG TABLET (FP) PO ONE ×3 (17:01→20:30)
--- NOTE | 2017-08-19 18:35 | PN ---
Physical Exam: SUBJECTIVE: Patient seen and examined. Tajik speaking resident helped translate. States R sided weakness continues, though 5/5 muscle strength and sensation were intact on exam. OBJECTIVE: Vital Signs Period Temp Pulse Resp BP Sys/Garza Pulse Ox Last 24 Hr 97.2 F-98.6 F 78-93 18-20 135-196/58-113 97 GEN: AAOx3, NAD, Lying in bed comfortable HEENT: PERRLA, EOMi CV: S1, S2, RRR, no murmur LUNG: CTABL ABD: Soft, NT, ND, normoactive BS MSK: No edema, no erythema NEURO: AAOx3, ?slurred speech vs language barrier CN 2-12 grossly intact MSK 5/5 in upper and lower extremities Sensation intact in upper and lower extremities - though patient complains of R sided numbness Reflexes unable to be assessed due to noncooperation Gait unsteady Active Medications Generic Name Dose Route Start Last Admin Trade Name Freq PRN Reason Stop Dose Admin Aspirin 81 mg 08/19/17 10:00 08/19/17 10:00 Asa - PO 81 mg DAILY MANOJ Administration Atorvastatin Calcium 80 mg 08/19/17 22:00 Lipitor - PO HS MANOJ Clopidogrel Bisulfate 75 mg 08/19/17 10:00 08/19/17 10:00 Plavix - PO 75 mg DAILY MANOJ Administration Heparin Sodium (Porcine) 5,000 unit 08/19/17 06:00 08/19/17 15:24 Heparin - SQ 5,000 unit TID MANOJ Administration Insulin Aspart 1 vial 08/19/17 07:00 08/19/17 17:38 Novolog Vial Sliding Scale - SQ 4 units ACHS MANOJ Administration Protocol ASSESSMENT/PLAN: 67 year old M with PMHx of TIA, HTN, CAD who presented with R sided weakness, found to be in hypertensive emergency with +MRI L thalamic infarct. # Acute CVA - +MRI L thalamic infarct, sustained R sided weakness, unsteady with PT. Also ?slurred speech vs language barrier. CVA was likely secondary to hypertensive emergency, patient sometimes forgets to take meds. BP improving. Since pt had CVA while on ASA 81, will add PLavix 75 to regimen. Also lipitor 80. No thrombus on echo. MRA shows incidental narrowing of opposite side. Regular diet as per S/S. Focus on improving gait w/ PT. Neuro on board. # HTN Emergency - BP 170/107, resolved with Labetalol 100x1 in ER. Held patient' s home meds to allow for permissive HTN (goal < 180/< 100). If above goal, can give Losartan 50mg x1. 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 Hold oral home meds. Start BGM + SSI ACHS # FEN - No IVF, elec wnl, patient on regular diet # PPx - HSQ TID, no GI needed, PT on board. Pt walked 50 feet but unsteady # Dispo - Medically managing CVA. Pt unsteady with PT, will check for improvement tmrw. If no improve, consider SNF d/w Dr Donte Perez MD - PGY1 Internal Medicine Visit type - Emergency Visit Emergency Visit: No - New Patient This patient is new to me today: No - Critical Care Critical Care patient: No - Discharge Referral Referred to [facility] Med [facility] No
--- NOTE | 2017-08-19 18:41 | PN ---
Teaching Attending Note Name of Resident: Ajay Perez ATTENDING PHYSICIAN STATEMENT I saw and evaluated the patient. I reviewed the resident's note and discussed the case with the resident. I agree with the resident's findings and plan as documented. SUBJECTIVE:c/o RUE weakness. denies CP and SOB OBJECTIVE: Last Vital Signs Temp Pulse Resp BP Pulse Ox 97.9 F 87 20 148/93 97 08/19/17 14:00 08/19/17 14:00 08/19/17 10:00 08/19/17 14:00 08/19/17 10:00 General NAD CV S1 S2 RRR +murmur Lungs CTA B/L no wheezing/rales/rhonchi Extremities no pedal edema Neuro CN II-XII grossly intact, strength equal in all 4 extremities, no pronator drift. unable to complete complex task due to language barrier ASSESSMENT AND PLAN: 67yo M wtih PMH TIA, dyslipidemia, HTN and DM presented to the ER with slurred speech and numbness 1. Acute CVA- L thalmic lacunar infarct. echo and carotid doppler pending. started on plavix and lipitor. seen by neuro, speech and swallow and PT. will cont cardiac monitoring to evaluate for any arrythmia. nothing on monitor at this time. no indication for cardio at this time 2. HTN urgeny- permissive HTN in the first 24H. now remains elevated. will slowly re-start home medications. losartan 50mg. slowly titrate up to optimize 3. DM- A1c 9.6. controlled here. tresiba not available here. will start levemir 15 units tonight. titrate to optimize control. cont iss, bgm 4. Hypokalemia- resolved 5. DVT ppx- hep sq
[2017-08-19] MEDS: INSULIN DETEMIR 100 UNITS/ML MDV SQ SCH ×2 (21:27→21:47)
[2017-08-19] MEDS ORDERED: ATORVASTATIN CA 80 MG TABLET (FP) PO SCH (22:00)
[2017-08-20] MEDS: HEPARIN NA (PORCINE) 5,000 UNITS/ML 1ML VIAL SQ SCH ×2 (06:02→13:35)
[2017-08-20] MEDS: INSULIN SLIDING SCALE (NOVOLOG) 1 VIAL SQ SCH ×2 (06:03→12:04)
[2017-08-20 07:12] LABS: ANION GAP 7 (8-16); CALCIUM 8.1 mg/dL (8.5-10.1); CO2 26 mmol/L (21-32)
[2017-08-20 07:15] LABS: GLUCOSE,RANDOM 150 mg/dL (74-106)
[2017-08-20 08:10] VITALS: TEMP 98.7
--- NOTE | 2017-08-20 08:35 | PN ---
Physical Exam: SUBJECTIVE: Patient seen and examined. Still endorses RUE and RLE "numbness", now complains of tingling in RUE. Mild headache yesterday, likely from elevated BP since headache reoslved today. Was unsteady with PT yesterday. Will assess PT eval today. Kazakh medical student used as interpeter. According to her there is no slurred speech. OBJECTIVE: Vital Signs Period Temp Pulse Resp BP Sys/Garza Pulse Ox Last 24 Hr 97.9 F-99.5 F 70-87 14-20 148-185/58-107 97-97 GEN: AAOx3, NAD, Lying in bed comfortable HEENT: PERRLA, EOMi CV: S1, S2, RRR, no murmur LUNG: CTABL ABD: Soft, NT, ND, normoactive BS MSK: No edema, no erythema NEURO: AAOx3 CN 2-12 grossly intact MSK 5/5 in upper and lower extremities Sensation intact in upper and lower extremities - though patient complains of R sided numbness Reflexes unable to be assessed due to noncooperation Active Medications Generic Name Dose Route Start Last Admin Trade Name Freq PRN Reason Stop Dose Admin Aspirin 81 mg 08/19/17 10:00 08/19/17 10:00 Asa - PO 81 mg DAILY MANOJ Administration Atorvastatin Calcium 80 mg 08/19/17 22:00 08/19/17 21:24 Lipitor - PO 80 mg HS MANOJ Administration Clopidogrel Bisulfate 75 mg 08/19/17 10:00 08/19/17 10:00 Plavix - PO 75 mg DAILY MANOJ Administration Heparin Sodium (Porcine) 5,000 unit 08/19/17 06:00 08/20/17 06:02 Heparin - SQ 5,000 unit TID MANOJ Administration Insulin Aspart 1 vial 08/19/17 07:00 08/20/17 06:03 Novolog Vial Sliding Scale - SQ Not Given ACHS [facility] Protocol Insulin Detemir 15 units 08/19/17 18:45 08/19/17 21:47 Levemir Vial SQ Not Given HS MANOJ Losartan Potassium 100 mg 08/20/17 08:00 Cozaar - PO DAILY MANOJ ASSESSMENT/PLAN: 67 year old M with PMHx of TIA, HTN, CAD who presented with R sided weakness, found to be in hypertensive emergency with +MRI L thalamic infarct. # Acute CVA - +MRI L thalamic infarct, sustained R sided weakness, due to hypertensive emergency. Added PLavix 75 to regimen since CVA happend on ASA. Also lipitor 80. No thrombus on echo. MRA shows incidental narrowing of opposite side. Regular diet as per S/S. 50ft but unsteady with PT. Likely d/c today with SNF or VNS # HTN Emergency - BP 170/107, resolved with Labetalol 100x1 in ER. Held patient' s home meds to allow for permissive HTN for first 24 hours. Will restart Cozaar 100mg daily now. 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 Hold oral home meds. Continue Levemir 15 + SSI ACHS # FEN - No IVF, elec wnl, patient on regular diet # PPx - HSQ TID, no GI needed, PT on board. Pt walked 50 feet but unsteady # Dispo - Medically managing CVA. Awaiting PT eval. D/c today vs SNF or VNS to d/w Dr Donte Perez MD - PGY1 Internal Medicine
[2017-08-20] MEDS: ASPIRIN 81 MG CHEWABLE TABLETS PO SCH (09:05)
[2017-08-20] MEDS: CLOPIDOGREL BISULFATE 75 MG TABLET (FP) PO SCH (09:05)
[2017-08-20] MEDS ORDERED: LOSARTAN POTASSIUM 50 MG TABLET (FP) PO SCH (10:00)
[2017-08-20] MEDS ORDERED: INSULIN (NOVOLOG) ASPART 100 UNITS/ML 10ML VIAL ONE (11:53)
[2017-08-20 13:01] VITALS: BP 144/84; PULSE 84
[2017-08-20] MEDS ORDERED: DRONABINOL 5 MG CAPSULE PO SCH (13:45)
[2017-08-20] MEDS ORDERED: POTASSIUM CHLORIDE TABS 20 MEQ TABLET.ER (FP) PO ONE (13:53)
--- NOTE | 2017-08-20 14:25 | MSN ---
Progress Note (short form) - Note Progress Note: SUBJECTIVE Pt seen and examined at bedside. Pt looked well and in no acute distress. 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 Also complained of difficulty holding a spoon with R hand. Slurring of speech has improved. Denied any GUZMAN this AM however mentioned endorsing a GUZMAN yesterday,most likely due to elevated BP. Denied any CP or SOB. OBJECTIVE Last Vital Signs Temp Pulse Resp BP Pulse Ox 98.7 F 84 14 144/84 97 08/20/17 08:00 08/20/17 13:01 08/20/17 08:00 08/20/17 13:01 08/20/17 08:00 GEN: NAD HEENT: PERRLA, EOMI CV: RRR S1 S2 No MRG LUNG: CTA b/l ABD: +bowel sounds, soft, ND, NT MSK: 5/5 strength UE and LE b/l; normal ROM NEURO: CN II-XII grossly intact; no facial droop or slurring of speech; sensation intact; unsteady gait Laboratory Last Values WBC 8.6 K/mm3 (4.0-10.0) 08/19/17 05:05 RBC 5.05 M/mm3 (4.00-5.60) 08/19/17 05:05 Hgb 15.1 GM/dL (11.7-16.9) 08/19/17 05:05 Hct 43.3 % (35.4-49) 08/19/17 05:05 MCV 85.8 fl (80-96) 08/19/17 05:05 MCH 29.9 pg (25.7-33.7) 08/19/17 05:05 MCHC 34.8 g/dl (32.0-35.9) 08/19/17 05:05 RDW 13.0 % (11.9-15.9) 08/19/17 05:05 Plt Count 153 K/MM3 (134-434) 08/19/17 05:05 MPV 9.0 fl (7.5-11.1) 08/19/17 05:05 Neutrophils % 75.2 % (42.8-82.8) 08/19/17 05:05 Lymphocytes % 16.5 % (8-40) 08/19/17 05:05 Monocytes % 7.0 % (3.8-10.2) 08/19/17 05:05 Eosinophils % 0.8 % (0-4.5) 08/19/17 05:05 Basophils % 0.5 % (0-2.0) 08/19/17 05:05 PT with INR 11.00 SEC (9.98-11.88) 08/18/17 07:10 INR 0.97 (0.82-1.09) 08/18/17 07:10 Sodium 138 mmol/L (136-145) 08/20/17 06:25 Potassium 3.4 mmol/L (3.5-5.1) L 08/20/17 06:25 Chloride 105 mmol/L (98-107) 08/20/17 06:25 Carbon Dioxide 26 mmol/L (21-32) 08/20/17 06:25 Anion Gap 7 (8-16) L 08/20/17 06:25 BUN 14 mg/dL (7-18) D 08/20/17 06:25 Creatinine 1.0 mg/dL (0.7-1.3) 08/20/17 06:25 Creat Clearance w eGFR > 60 (>60) 08/18/17 07:10 POC Glucometer 207 UNITS (80-120) 08/20/17 11:18 Random Glucose 150 mg/dL (74-106) H D 08/20/17 06:25 Hemoglobin A1c % 9.6 % (4.8-6.0) H D 08/19/17 05:05 Calcium 8.1 mg/dL (8.5-10.1) L 08/20/17 06:25 Total Bilirubin 0.8 mg/dL (0.2-1.0) D 08/18/17 07:10 AST 28 U/L (15-37) D 08/18/17 07:10 ALT 46 U/L (12-78) D 08/18/17 07:10 Alkaline Phosphatase 98 U/L (45-117) D 08/18/17 07:10 Creatine Kinase 193 IU/L (39-308) 08/18/17 07:10 Creatine Kinase Index 1.2 % (0.0-5.0) 08/18/17 07:10 CK-MB (CK-2) 2.426 ng/mL (0.5-3.6) 08/18/17 07:10 Troponin I < 0.02 ng/ml (0.00-0.05) 08/18/17 07:10 Total Protein 8.1 g/dl (6.4-8.2) 08/18/17 07:10 Albumin 4.0 g/dl (3.4-5.0) 08/18/17 07:10 Triglycerides 59 mg/dL (35-160) D 08/18/17 07:10 Cholesterol 111 mg/dL (50-200) D 08/18/17 07:10 Total LDL Cholesterol 62 mg/dL (5-100) D 08/18/17 07:10 HDL Cholesterol 43 mg/dL (40-60) 08/18/17 07:10 Urine Color Lt. yellow 08/18/17 07:50 Urine Appearance Clear 08/18/17 07:50 Urine pH 7.0 (5.0-8.0) D 08/18/17 07:50 Ur Specific Beason <= 1.005 (1.001-1.035) 08/18/17 07:50 Urine Protein Negative (NEGATIVE) 08/18/17 07:50 Urine Glucose (UA) Trace (NEGATIVE) H 08/18/17 07:50 Urine Ketones Negative (NEGATIVE) 08/18/17 07:50 Urine Blood Trace (NEGATIVE) H 08/18/17 07:50 Urine Nitrite Negative (NEGATIVE) 08/18/17 07:50 Urine Bilirubin Negative (NEGATIVE) 08/18/17 07:50 Urine Urobilinogen 0.2 mg/dL (0.2-1.0) 08/18/17 07:50 Ur Leukocyte Esterase Negative (NEGATIVE) 08/18/17 07:50 Urine WBC (Auto) <1 /hpf (3-5) 08/18/17 07:50 Urine RBC (Auto) <1 /hpf (0-3) 08/18/17 07:50 Blood Type AB POSITIVE 08/18/17 07:10 Antibody Screen Negative 08/18/17 07:10 Home Medications Medication Instructions Recorded Insulin (Novolog 70/30) [Novolog 32 units SQ BIDAC #7 pen 08/30/14 Mix 70/30 Flexpen -] Losartan Potassium [Cozaar -] 100 mg PO DAILY #30 tablet 08/30/14 Aspirin [Children's Aspirin] 81 mg PO DAILY 08/18/17 Insulin Degludec [Tresiba 15 unit SQ HS 08/18/17 Flextouch U-100] Atorvastatin Ca [Lipitor] 80 mg PO HS #30 tab 08/20/17 Clopidogrel Bisulfate [Plavix -] 75 mg PO DAILY #30 tablet 08/20/17 Walker [Ultra-Light Rollator] 1 each MC ONCE #1 each 08/20/[address]: no evidence of acute intracranial hemorrhage, edema, midline shift, mass effect, skull fracture, or acute territorial ischemic changes Brain MRI w/o contrast: acute infarct in the posterolateral L thalamus with no mass effect; generalized age-related volume loss with mild chronic microvascular changes Neck MRA w/o contrast: no stenosis in common carotid, cervical segments of internal carotid or vertebral arteries; 24% luminal narrowing at R internal carotid artery Brain MRA w/o contrast: patent [place]; moderate luminal narrowing in distal M1 segment of R MCA at bifurcation; moderate luminal narrowing in P2 segment on R TRAVEL NURSE AP Pt is a 67y/o M with PMHx of TIA, HTN, DM, CAD, and HLD who presented with b/l UE and LE weakness, slurred speech, and unsteady gait, was admitted for acute ischemic CVA. 1. Acute Ischemic CVA -in posterolateral L thalamus with residual R sided weakness, likely due to HTN emergency -echo neg for thrombus, unlikely embolic -carotid U/S neg for any stenosis -since pt had stroke on aspirin, plavix 75 QD added to home meds -started on lipitor 80 mg QD -regular diet recommended by Speech/Swallow -unsteady with PT (50 ft), recommends continued therapy; refused SNF for rehab; d/c home with rolling walker 2. HTN emergency -presented with 170s/110s; likely due to noncompliance; resolved with labetelol 100 mg; BP dropped to 130s-140s/80s -allowed permissive HTN for upto 24 hrs, systolic to 180 and diastolic up to 99 -restarted on home dose of losartan 100 mg 3. DM -HbA1C: 9.6 -ISS; BGM ACHS 4. HLD -continue lipitor 80 mg QD 5. FEN -No IVFs -low K; repleted with KCL 40 mEq; other lytes wnl -regular diet 6. PPx -DVT: Heparin SQ TID -No GI Ppx Dispo: Gait still unsteady; refused SNF; D/C home with rolling walker Idania Vaughan, MS3
--- NOTE | 2017-08-20 14:32 | PN ---
Teaching Attending Note Name of Resident: Ajay Perez ATTENDING PHYSICIAN STATEMENT I saw and evaluated the patient. I reviewed the resident's note and discussed the case with the resident. I agree with the resident's findings and plan as documented. SUBJECTIVE:conintues to have numbness of RUE. denies Cp, SOB< fever, chills, N/V /C/D, GUZMAN or slurred speech OBJECTIVE: Last Vital Signs Temp Pulse Resp BP Pulse Ox 98.7 F 84 14 144/84 97 08/20/17 08:00 08/20/17 13:01 08/20/17 08:00 08/20/17 13:01 08/20/17 08:00 General NAD CV S1 S2 RRR +murmur Lungs CTA B/L no wheezing/rales/rhonchi Extremities no pedal edema Neuro CN II-XII grossly intact, strength equal in all 4 extremities, no pronator drift. unable to complete complex task due to language barrier ASSESSMENT AND PLAN: 67yo M wtih PMH TIA, dyslipidemia, HTN and DM presented to the ER with slurred speech and numbness 1. Acute CVA- L thalmic lacunar infarct. echo and carotid doppler with no significant pathology. on plavix and lipitor. seen by neuro, speech and swallow and PT. no events on cardiac monitoring. 2. HTN urgeny- improved. re-started on home medications. cont losartain 100mg. 3. DM- A1c 9.6. controlled here. tresiba not available here. will d/c on home regimen. 4. Hypokalemia- resolved 5. DVT ppx- hep sq 6. it was recommended pt got to [facility] as only able to ambulate [facility] 2 person assist. pt refused. states he has family who will assist him. d/c home with VNS and home PT
--- NOTE | 2017-08-20 16:41 | DS ---
Physical Exam: SUBJECTIVE: Patient seen and examined. Doing better. Was unsteady with PT. Refuses Rehab OBJECTIVE: Vital Signs Period Temp Pulse Resp BP Sys/Garza Pulse Ox Last 24 Hr 98.2 F-99.5 F 70-87 14-20 144-196/83-111 97-97 PHYSICAL EXAM GEN: AAOx3, NAD, Lying in bed comfortable HEENT: PERRLA, EOMi CV: S1, S2, RRR, no murmur LUNG: CTABL ABD: Soft, NT, ND, normoactive BS MSK: No edema, no erythema NEURO: AAOx3 CN 2-12 grossly intact MSK 5/5 in upper and lower extremities Sensation intact in upper and lower extremities - though patient complains of R sided numbness Reflexes unable to be assessed due to noncooperation LABS Laboratory Results - last 24 hr 08/19/17 08/19/17 08/20/17 16:49 21:26 05:39 Sodium Potassium Chloride Carbon Dioxide Anion Gap BUN Creatinine POC Glucometer 271 248 135 Random Glucose Calcium 08/20/17 08/20/17 06:25 11:18 Sodium 138 Potassium 3.4 L Chloride 105 Carbon Dioxide 26 Anion Gap 7 L BUN 14 D Creatinine 1.0 POC Glucometer 207 Random Glucose 150 H D Calcium 8.1 L HOSPITAL COURSE: Date of Admission:08/18/17 Date of Discharge: 08/20/17 Dm Sosa is a 67 year old male with PMhx of TIA (2013), HTN, IDDM, CAD ( cardiac cath in Sep 2012), HLD, who presented to the ER with R-sided numbness and paresthesias. Patient states that prior to this incident he was able to ambulate at home, but now displays a slightly unsteady gait. He was found to have Hypertensive emergency with BP of 170/107. Per son, the patient sometimes forgets to take his medications, which could have lead to the initial BP on presentation. Head CT was negative for any bleed, and tPA wasnt given since symptoms were out of time window. He was found to have an acute L posterolateral thalamic infarct confirmed by MRI , which fits with the patients presentation. Echo was negative for thrombus, making embolic stroke unlikely.The patient was allowed permissive hypertension for the first 24 hours. MRA shows incidental narrowing of arteries on the opposite side. Plavix 75 mg daily was started since the patient suffered a stroke while taking aspirin 81 mg daily. Lipitor 80 mg daily was also started for secondary prevention. On day 2, the patient was started on his home anti- hypertensive regimen, with resolution of BPs to 140s/70s. Physical therapy walked with the patient and he was able to walk 50 feet but was unsteady. The patient was recommended to undergo physical therapy at a subacute rehab, however he adamantly refused. 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 He will be discharged home with a rolling walker. He is aware of the hospital course and agrees with the plan. Minutes to complete discharge: 45 Discharge Summary Reason For Visit: CVA Condition: Improved - Instructions Diet, Activity, Other Instructions: RECOMMENDATIONS: - You were admitted because you had a stroke. We recommended that you go to rehab to improve your walking but you refused - Your blood pressure was high on admission but when we gave you your home medications, it improved - We are adding Plavix 75mg tablets to your regimen because you were already on aspirin - We are adding Atorvastatin 80mg to your regimen because it helps prevent a new stroke - Please keep fall precautions. We are sending you a rolling walker to help you walk - Please keep a low sugar, low cholesterol diet to help prevent another stroke - If you have any symptoms of weakness or facial droop or chest pain or shortness of breath, please return to the Emergency Department NEW MEDICATIONS: - Plavix 75mg tablets once a day - Atorvastatin 80mg once at night FOLLOWUPS: - Dr. Dr Erazo (primary care provider) within 2 weeks - Dr. David Felix (neurologist) within 1 week Your prescriptions were sent to [facility] Referrals: David Felix MD [Staff Physician] - 1 Week Cathy Erazo [Staff Physician] - 2 Weeks Disposition: HOME - Home Medications Comprehensive Discharge Medication List: Ambulatory Orders RX: Insulin (Novolog 70/30) [Novolog Mix 70/30 Flexpen -] 32 units SQ BIDAC #7 pen 08/30/14 RX: Losartan Potassium [Cozaar -] 100 mg PO DAILY #30 tablet 08/30/14 Aspirin [Children's Aspirin] 81 mg PO DAILY 08/18/17 Insulin Degludec [Tresiba Flextouch U-100] 15 unit SQ HS 08/18/17 Atorvastatin Ca [Lipitor] 80 mg PO HS #30 tab 08/20/17 Clopidogrel Bisulfate [Plavix -] 75 mg PO DAILY #30 tablet 08/20/17 RX: Walker [Ultra-Light Rollator] 1 each ONCE #1 each 08/20/17 This patient is new to me today: No Emergency Visit: No Critical Care patient: No - Discharge Referral Referred to [facility] Med P.C.: No
== END 2017-08-20 15:23 | disposition home or self-care (01) | DRG 65 ==
LOC: JER 06:38 → JERBED 09:02 → J4W 19:00
PROVIDERS: ADMIT Family Medicine; ATTEND Internal Medicine
DX: I63.9 Cerebral infarction, unspecified (principal); G81.91 Hemiplegia, unspecified affecting right dominant side; E78.5 Hyperlipidemia, unspecified; E11.42 Type 2 diabetes mellitus with diabetic polyneuropathy; I25.10 Atherosclerotic heart disease of native coronary artery without angina pectoris; E87.6 Hypokalemia; I16.0 Hypertensive urgency; R26.81 Unsteadiness on feet; Z79.4 Long term (current) use of insulin
CPT/HCPCS: 36415; 70450-TC; 70544-TC; 70547-TC; 70551-TC; 80048; 80053; 81003; 81015; 82465; 82550; 82553; 83036; 83718; 83721; 84478; 84484; 85025; 85610; 86850; 86900; 86901; 90688; 93005; 93010; 93306-TC; 93880-TC; 97116-GP; 97161-GP; 99285-25; J1644

== ENCOUNTER 2017-08-21 11:32 | Inpatient (IN) | payer OTHER ==
[2017-08-21 11:40] VITALS: BMI 24.0
--- NOTE | 2017-08-21 12:42 | PDOC ---
*Physical Exam - Vital Signs Last Vital Signs Temp Pulse Resp BP Pulse Ox 99.2 F 97 H 18 129/80 98 08/21/17 11:37 08/21/17 11:37 08/21/17 11:37 08/21/17 11:37 08/21/17 11:37 ED Treatment Course - LABORATORY CBC & Chemistry Diagram: 08/21/17 17:25 08/21/17 17:25 Medical Decision Making - Medical Decision Making 08/21/17 12:41 The patient was seen and evaluated in conjunction with ANGELES Mehta under my direct supervision, ancillary studies were reviewed. I independently interviewed and evaluated the patient and I agree with the plan as outlined by ANGELES Mehta . *DC/Admit/Observation/Transfer Diagnosis at time of Disposition: Right sided weakness Bimalleolar fracture Qualifiers: Encounter type: initial encounter Fracture type: closed Laterality: right Qualified Code(s): S82.841A - Displaced bimalleolar fracture of right lower leg , initial encounter for closed fracture Cerebrovascular accident (CVA) Qualifiers: CVA mechanism: unspecified Qualified Code(s): I63.9 - Cerebral infarction, unspecified - Discharge Dispostion Admit: Yes - Referrals - Patient Instructions - Post Discharge Activity
--- NOTE | 2017-08-21 13:46 | PDOC ---
History of Present Illness - General Chief Complaint: Injury Stated Complaint: RT FOOT INJURY Time Seen by Provider: 08/21/17 11:53 History Source: Patient Exam Limitations: No Limitations - History of Present Illness Initial Comments: 08/21/17 12:54 67-year-old male presents the ED with complaints of right ankle pain. Patient states he was walking with his walker this morning when his knee buckled causing him to twist his right ankle. Patient denies radiation of pain or previous injury to the affected area. Patient also denies radiation of pain. Patient states was recently discharged from a rehabilitation secondary to diabetes and stroke but states was discharged yesterday without complications. Occurred: reports: just prior to arrival, this morning Severity: reports: mild Pain Location: reports: lower extremity Method of Injury: Yes: fall Associated Symptoms (Fall): trouble walking Past History - Travel Traveled outside of the country in the last 30 days: No - Past Medical History Allergies/Adverse Reactions: Allergies Allergy/AdvReac Type Severity Reaction Status Date / Time No Known Allergies Allergy Verified 08/21/17 11:40 Home Medications: Ambulatory Orders Insulin (Novolog 70/30) [Novolog Mix 70/30 Flexpen -] 32 units SQ BIDAC #7 pen 08/30/14 Losartan Potassium [Cozaar -] 100 mg PO DAILY #30 tablet 08/30/14 Aspirin [Children's Aspirin] 81 mg PO DAILY 08/18/17 Insulin Degludec [Tresiba Flextouch U-100] 15 unit SQ HS 08/18/17 Atorvastatin Ca [Lipitor] 80 mg PO HS #30 tab 08/20/17 Clopidogrel Bisulfate [Plavix -] 75 mg PO DAILY #30 tablet 08/20/17 Walker [Ultra-Light Rollator] 1 each ONCE #1 each 08/20/17 CVA: Yes COPD: No Diabetes: Yes HTN: Yes Hypercholesterolemia: Yes - Suicide/Smoking/Psychosocial Hx Smoking Status: No Smoking History: Never smoked Have you smoked in the past 12 months: No Number of Cigarettes Smoked Daily: 0 Hx Alcohol Use: No Drug/Substance Use Hx: No Substance Use Type: None Hx Substance Use Treatment: No Patient Lives Alone: No Lives with/in: spouse/SO Review of Systems - Review of Systems Able to Perform ROS?: Yes Constitutional: No: Symptoms Reported HEENTM: No: Symptoms Reported Respiratory: No: Symptoms reported Cardiac (ROS): No: Symptoms Reported ABD/GI: No: Symptoms Reported : No: Symptoms Reported Musculoskeletal: Yes: Joint Pain (right ankle) Integumentary: Yes: Bruising (and swelling) Neurological: No: Symptoms reported, Paresthesia, Dizziness Hematologic/Lymphatic: No: Symptoms Reported *Physical Exam - Vital Signs Last Vital Signs Temp Pulse Resp BP Pulse Ox 99.2 F 97 H 18 129/80 98 08/21/17 11:37 08/21/17 11:37 08/21/17 11:37 08/21/17 11:37 08/21/17 11:37 - Physical Exam General Appearance: Yes: Nourished, Appropriately Dressed. No: Apparent Distress Neck: negative: Tender, Decreased range of motion Respiratory/Chest: positive: Lungs Clear, Normal Breath Sounds. negative: Respiratory Distress, Accessory Muscle Use Integumentary: positive: Swelling (o lateral aspect of right malleolus. calcaneofibular ligament), Ecchymosis Neurologic: positive: Motor Strength 5/5 (ambulatory with limp) Heart Score/ECG Review - ECG Intrepretation Rhythm: Regular Rhythm (rate 102) ED Treatment Course - LABORATORY CBC & Chemistry Diagram: 08/21/17 17:25 08/21/17 17:25 - RADIOLOGY Radiology Studies Ordered: Category Date Time Status ANKLE & FOOT-RIGHT* [RAD] Stat Radiology 08/21/17 12:54 Taken Medical Decision Making - Medical Decision Making 08/21/17 13:04 Patient status post mechanical for now complaining of right ankle pain. Patient with tenderness over the lateral aspect of right malleolus. Patient ordered for x-ray of the ankle. 08/21/17 15:59 X-ray shows a bimalleolar fracture with a slightly widened mortise. Patient complaining of generalized weakness. Due to severity of injury, patient's recent CVA and reported generalized weakness I will consult hospitalist for admission. 08/21/17 16:18 Case discussed with hospitalist and accepted to service. Case also discussed with Dr. Cheatham and states to place patient with a posterior and sugar tong splint and in neutral position. He will consult on patient and consider if patient is a surgical candidate. *DC/Admit/Observation/Transfer Diagnosis at time of Disposition: Right sided weakness Bimalleolar fracture Qualifiers: Encounter type: initial encounter Fracture type: closed Laterality: right Qualified Code(s): S82.841A - Displaced bimalleolar fracture of right lower leg , initial encounter for closed fracture Cerebrovascular accident (CVA) Qualifiers: CVA mechanism: unspecified Qualified Code(s): I63.9 - Cerebral infarction, unspecified - Discharge Dispostion Admit: Yes - Referrals Referrals: Cathy Erazo [Primary Care Provider] - - Patient Instructions - Post Discharge Activity
[2017-08-21 17:32] LABS: BASOPHIL 0.4 % (0-2.0); EOSINOPHIL 0.4 % (0-4.5); MCH 29.8 pg (25.7-33.7); MCHC 34.2 g/dl (32.0-35.9); MEAN PLT VOLUME 9.2 fl (7.5-11.1); NEUTROPHILS 78.7 % (42.8-82.8); PLATELET COUNT 149 K/MM3 (134-434); RDW 13.1 % (11.9-15.9); WHITE BLOOD COUNT 11.3 K/mm3 (4.0-10.0)
[2017-08-21 18:00] LABS: ALBUMIN 3.8 g/dl (3.4-5.0); ALK PHOS 107 U/L (45-117); ANION GAP 7 (8-16); BILIRUBIN,TOTAL 1.3 mg/dL (0.2-1.0); CALCIUM 8.5 mg/dL (8.5-10.1); CO2 23 mmol/L (21-32); CREATININE 1.1 mg/dL (0.7-1.3); SGPT/ALT 35 U/L (12-78); TOT PROT 7.8 g/dl (6.4-8.2)
--- NOTE | 2017-08-21 18:02 | HP ---
CHIEF COMPLAINT: mechanical fall PCP: Dr. Erazo HISTORY OF PRESENT ILLNESS: 67 yr old Mandarin-speaking man with uncontrolled IDDM, HTN, hx CVA 08/18/2017 with residual right LE weakness, brought into ED by family after mechanical fall. He was sitting for 10 minutes in a chair, prior to which he had checked his BGM (230) and received insulin coverage. He tried to stand but felt that both his legs were weak and he fell back into the chair, he tried again and fell back again. witnessed the entire episode. pt denied facial droop, hemiparesis, lightheadedness, dizziness, chest pain, palpitations, vision changes, headache, fever, cough. he had numbness in his right arm on prior admission, but it resolved during the hospital stay and did not return, this episode was not similar to his CVA. He had eating noodles earlier in the evening. as per daughter who helped with translation: "he was discharged from hospital, was home for 10 minutes and he fell, so we came back." ER course was notable for: (1) chest xray - without acute pathology (2) foot-ankle xray in right foot with bimalleolar fracture (3) dr. 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 Recent Travel: none PAST MEDICAL HISTORY: hx of TIA's uncontrolled IDDM HTN HLD CVA: 1 cm lacunar infarct in the left posterior thalamus/internal capsule on PAST SURGICAL HISTORY: cardiac cath 2012 Social History: Smoking: denies Alcohol: denies Drugs: denies Family History: brother with DM Allergies No Known Allergies Allergy (Verified 08/21/17 11:40) HOME MEDICATIONS: Home Medications Medication Instructions Recorded Insulin (Novolog 70/30) [Novolog 32 units SQ BIDAC #7 pen 08/30/14 Mix 70/30 Flexpen -] Losartan Potassium [Cozaar -] 100 mg PO DAILY #30 tablet 08/30/14 Aspirin [Children's Aspirin] 81 mg PO DAILY 08/18/17 Insulin Degludec [Tresiba 15 unit SQ HS 08/18/17 Flextouch U-100] Atorvastatin Ca [Lipitor] 80 mg PO HS #30 tab 08/20/17 Clopidogrel Bisulfate [Plavix -] 75 mg PO DAILY #30 tablet 08/20/17 Walker [Ultra-Light Rollator] 1 each ONCE #1 each 08/20/17 REVIEW OF SYSTEMS CONSTITUTIONAL: Absent: fever, chills, diaphoresis, generalized weakness, malaise, loss of appetite, weight change HEENT: Absent: rhinorrhea, nasal congestion, throat pain, throat swelling, difficulty swallowing, mouth swelling, eye pain, visual changes CARDIOVASCULAR: Absent: chest pain, syncope, palpitations, irregular heart rate, lightheadedness , peripheral edema RESPIRATORY: Absent: cough, shortness of breath, dyspnea with exertion, orthopnea, wheezing, stridor, hemoptysis GASTROINTESTINAL: Absent: abdominal pain, abdominal distension, nausea, vomiting, diarrhea, constipation, melena, hematochezia GENITOURINARY: Absent: dysuria, frequency, urgency, hesitancy, hematuria, flank pain, genital pain MUSCULOSKELETAL: Absent: myalgia, arthralgia, joint swelling, back pain, neck pain ENDOCRINE: NEUROLOGIC: Present: unsteady gait, Absent: headache, focal weakness or paresthesias, dizziness, seizure, mental status changes, bladder or bowel incontinence PHYSICAL EXAMINATION Vital Signs - 24 hr 08/21/17 11:37 Temperature 99.2 F Pulse Rate 97 H Respiratory 18 Rate Blood Pressure 129/80 O2 Sat by Pulse 98 Oximetry (%) GENERAL: Awake, alert, and fully oriented, in no acute distress. HEAD: Normal with no signs of trauma. EYES: Pupils equal, round and reactive to light, extraocular movements intact, sclera anicteric, conjunctiva clear. No lid lag. EARS, NOSE, THROAT: nares patent, oropharynx clear without exudates. Moist mucous membranes. no oral lesions NECK: Normal range of motion, supple without lymphadenopathy, JVD, or masses. LUNGS: Breath sounds equal, clear to auscultation bilaterally. No wheezes, and no crackles. No accessory muscle use. HEART: Regular rate and rhythm, normal S1 and S2 without murmur, rub or gallop. ABDOMEN: Soft, nontender, not distended, normoactive bowel sounds, no guarding, no rebound, no masses. No hepatomegaly or splenomegaly. MUSCULOSKELETAL: right foot upto knee wrapped with splint in place. No CVA tenderness. UPPER EXTREMITIES: 2+ radial b/l pulses, warm, well-perfused. No cyanosis. No clubbing. No peripheral edema. LOWER EXTREMITIES: 2+ DP right pulse, warm, well-perfused. No calf tenderness. No peripheral edema. NEUROLOGICAL: Cranial nerves II-XII intact. Normal speech. facial symmetry, speech regular, 5/5 handgrip/biceps/triceps/shoulders on extension and flexion, left&right hip 5/5 extension and flexion. right and left knee extension and flexion 5/5. dorsi/planter on left 5/5. able to wiggle toes on right through cast. sensation to sharp and dull intact on arms/hands throughout, from left dorsum to thigh. decreased sensation in left and right soles. no pronator or leg drift. [id number] intact in left, decreased in right. SKIN: Warm, dry, normal turgor, no rashes or lesions noted, normal capillary refill. Laboratory Results - last 24 hr 08/21/17 17:25 WBC 11.3 H D RBC 5.09 Hgb 15.2 Hct 44.3 MCV 87.0 MCH 29.8 MCHC 34.2 RDW 13.1 Plt Count 149 MPV 9.2 Neutrophils % 78.7 Lymphocytes % 12.3 D Monocytes % 8.2 Eosinophils % 0.4 Basophils % 0.4 ASSESSMENT/PLAN: 67 yr old man with recent CVA brought in by family due to mechanical fall. - corrected Na+ 137 #mechanical fall (neuro exam without focal deficits, BP controlled, no sign of active infection, will repeat mild elevation in leucocytosis) - dr. nguyen for surgical evaluation; coags/hot oiler &screen if taken to OR - wrapped in splint, keep cdi - fall risk precautions, physical therapy evaluation - discussed with daughter, patient and , they are requesting rehab placement , explained risks of returning home, answered questions to their satisfaction. - social work consult placed for rehab placement #IDDM - home insulins: NPH and treceiba are NF, levemir 15units as per previous hospital admission for tonight as patient has not eaten, will increase to 32units HS as equivalent to home dose of flexpen - BGM achs - NISS #HTN - losartan 100mg po daily - repeat BP elevated, IVF dec'd #recent CVA/HLD - lipitor 80mg po HS - ASA 81mg po HS #DVT: Heparin TID #diet: diabetic/low sodium Visit type - Emergency Visit Emergency Visit: Yes ED Registration Date: 08/21/17 Care time: The patient presented to the Emergency Department on the above date and was hospitalized for further evaluation of their emergent condition. - New Patient This patient is new to me today: Yes Date on this admission: 08/21/17 - Critical Care Critical Care patient: No
[2017-08-21 18:17] LABS: MAGNESIUM 2.4 mg/dL (1.8-2.4); SGOT/AST 39 U/L (15-37)
[2017-08-21 18:18] LABS: GLUCOSE,RANDOM 306 mg/dL (74-106)
--- NOTE | 2017-08-21 18:18 | PN ---
Teaching Attending Note Name of Resident: Andrew Watt ATTENDING PHYSICIAN STATEMENT I saw and evaluated the patient. I reviewed the resident's note and discussed the case with the resident. I agree with the resident's findings and plan as documented. SUBJECTIVE: CC: fall and R ankle pain HPI : 67 y/o gentleman with h/o HTN, DM , HLP, and recent diagnosis of thalamic ischemic stroke who was d/c yesterday, now presented with a fall the pt fell while ambulating with his walker today. He denied LOC , light headedness, palpitations, SOB or CP before or after the fall. He denied head trauma, or GUZMAN or visual changes. no fever or chills. He complained of pain in R lateral ankle . in ER he was found to have Fx of the distal end of R fibula OBJECTIVE: AND, AAOX3, pleasant and cooperative. HEENT: MMM, no facial droop. no LAP in neck . CV: RRR, 3/6 SM heard mainly in LLSB, and to a lesser extent in apex and LUSB Lungs: CTAB, no wheezing or crackles. Abd: soft, NT,ND , NL BS . Ext: R foot and ankle in cast. no edema or erythema on visible RLE , adn LLE Neuro : NO facial droop, EOMI, nl facial sensation , round equal pupils , reactive to light, tongue and uvula at mid line. shoulder shrug NL Strength 5/5 in upper extremities proximally and distally. LLE 5/5 proximally and distally. RLE 5/5 at hip flexion, knee flexion and extension . Unable to evaluate R ankle dorsiflexion adn plantar-flexion . sensatio tolight touch NL all over . reflexes 2+ knee jerk and biceps b/l ASSESSMENT AND PLAN: 67 y/o gentleman with h/o HTN, DM , HLP, and recent diagnosis of thalamic ischemic stroke who was d/c yesterday, now presented with a fall. He was found to have R distal fibula fx . 1- Mechanical fall with resultant Fibula Fx : - tylenol for pain - Heparin for DVT px - Dr. Cheatham was called form ER, he will evaluate tomorrow - No weight baring 2- Recent CVA : no residual deficit on Today's exam. MRI/MRA from last admission reviewed. - cont Statin - cont plavix - cont ARB 3- HTN: - cont Losartan 4- mild leukocytosis : no fever or any clinical signs of infection . - monitor off ABx 5-Uncontrolled DM: last A1c 9. - Give Levemir 32 uits at HS and SSI . - was d/c on mixed insulin and Trasiba last admission, family to bring home insulin for clarification Will admit due to inability to ambulate . FAmily is interested in Rehab
[2017-08-21] MEDS ORDERED: SODIUM CHLORIDE 1,000 ML IV STA (18:22)
[2017-08-21 18:45] LABS: URINE APPEARANCE CLEAR; URINE BILIRUBIN NEGATIVE (NEGATIVE); URINE BLOOD TRACE-INTA (NEGATIVE); URINE COLOR LT. YELLOW; URINE GLUCOSE (UA) 3+ (NEGATIVE); URINE KETONE 1+ (NEGATIVE); URINE NITRITE NEGATIVE (NEGATIVE); URINE PROTEIN NEGATIVE (NEGATIVE); URINE UROBILINOGEN 0.2 mg/dL (0.2-1.0)
[2017-08-21] MEDS: INSULIN SLIDING SCALE (NOVOLOG) 1 VIAL SQ SCH ×2 (20:40→21:00)
[2017-08-21] MEDS ORDERED: INSULIN DETEMIR 100 UNITS/ML MDV SQ SCH (20:45)
[2017-08-21] MEDS ORDERED: INSULIN (NOVOLOG) ASPART 100 UNITS/ML 10ML VIAL ONE (20:50)
[2017-08-21] MEDS: HEPARIN NA (PORCINE) 5,000 UNITS/ML 1ML VIAL SQ SCH ×2 (21:00→21:08)
[2017-08-21] MEDS: ATORVASTATIN CA 80 MG TABLET (FP) PO SCH (21:00)
[2017-08-21 22:51] LABS: URINE LEUK ESTERASE Negative (NEGATIVE)
[2017-08-22] MEDS: HEPARIN NA (PORCINE) 5,000 UNITS/ML 1ML VIAL SQ SCH ×3 (05:54→21:26)
[2017-08-22] MEDS: INSULIN SLIDING SCALE (NOVOLOG) 1 VIAL SQ SCH ×4 (06:16→21:25)
[2017-08-22 07:09] LABS: BASOPHIL 0.4 % (0-2.0); EOSINOPHIL 0.7 % (0-4.5); MCH 29.7 pg (25.7-33.7); MCHC 34.7 g/dl (32.0-35.9); MEAN CELL VOLUME 85.6 fl (80-96); MEAN PLT VOLUME 8.9 fl (7.5-11.1); NEUTROPHILS 67.9 % (42.8-82.8); PLATELET COUNT 141 K/MM3 (134-434); RDW 12.9 % (11.9-15.9)
[2017-08-22 07:25] LABS: INR 1.11 (0.82-1.09); PROTHROMBIN TIME (PATIENT) 12.5 SEC (9.98-11.88)
[2017-08-22 07:32] LABS: ANION GAP 9 (8-16); CALCIUM 8.9 mg/dL (8.5-10.1); CO2 27 mmol/L (21-32); GLUCOSE,RANDOM 183 mg/dL (74-106)
--- NOTE | 2017-08-22 08:44 | EKG ---
Test Reason : Blood Pressure : / mmHG Vent. Rate : 103 BPM Atrial Rate : 103 BPM P-R Int : 182 ms QRS Dur : 086 ms QT Int : 376 ms P-R-T Axes : 045 -63 081 degrees QTc Int : 492 ms SINUS TACHYCARDIA POSSIBLE LEFT ATRIAL ENLARGEMENT LEFT ANTERIOR FASCICULAR BLOCK ANTEROSEPTAL INFARCT (CITED ON OR BEFORE 30-MAY-2012) ABNORMAL ECG WHEN COMPARED WITH ECG OF 18-AUG-2017 07:09, NO SIGNIFICANT CHANGE WAS FOUND Confirmed by BRIAN MIGUEL, LUISANA ([id number]) on 08/22/2017 8:44:30 AM Referred By: Confirmed By:LUISANA TORRES MD
[2017-08-22] MEDS ORDERED: PT OWN MED DRAWER 7, Y5N ONE (09:04)
[2017-08-22] MEDS: ASPIRIN 81 MG CHEWABLE TABLETS PO SCH (09:06)
[2017-08-22] MEDS: LOSARTAN POTASSIUM 50 MG TABLET (FP) PO SCH (09:06)
[2017-08-22] MEDS ORDERED: CLOPIDOGREL BISULFATE 75 MG TABLET (FP) PO SCH (10:00)
--- NOTE | 2017-08-22 10:56 | PN ---
Teaching Attending Note Name of Resident: Oksana Savage ATTENDING PHYSICIAN STATEMENT I saw and evaluated the patient. I reviewed the resident's note and discussed the case with the resident. I agree with the resident's findings and plan as documented. SUBJECTIVE:asymptomatic. states he has no pain in his foot. denies CP, SOB, fever, chills, N/V/C/D OBJECTIVE: Last Vital Signs Temp Pulse Resp BP Pulse Ox 98 F 90 18 130/74 100 08/22/17 08:15 08/22/17 08:15 08/22/17 08:15 08/22/17 08:15 08/21/17 21:00 General NAD CV S1 S2 RRR no murmur/rub/gallop Lungs CTA B/L no wheezing/rales/rhonchi Extremities R foot wrapped. no pedal edema ASSESSMENT AND PLAN: 67yo M wtih PMH TIA, dyslipidemia, HTN, DM and recent ischemic CVA presented to the ER after mechanical fall sustaining fracture to R fibula 1. Acute R distal fibula fracture- s/p mechanical fall. in soft cast. pt was encouraged to go to [facility] last admission however he refused. f/u ortho recommendations. PT eval. family now agreeable to [facility] 2. L thalmic lacunar infarct- clinically stable. cont asa/plavix/lipitor 3. HTN- controlled. cont losartan 4. DM- will need to clarify home medications. on levemir 15units HS 5. mild leukocytosis- likely reactive. resolved. no indication for abx 6. DVT ppx- Hep sq 7. will need [facility] placement. spoke with SW. MARQUEZ to be sent in AM
--- NOTE | 2017-08-22 11:05 | PN ---
Physical Exam: SUBJECTIVE: Patient seen and examined layinging in bed. NO new complaints. S/ p mechanical fall. A OBJECTIVE: Vital Signs Period Temp Pulse Resp BP Sys/Garza Pulse Ox Last 24 Hr 98 F-99.2 F 87-111 16-18 129-170/74-86 98-100 GENERAL: The patient is awake, alert, and fully oriented, in no acute distress. HEAD: Normal with no signs of trauma. EYES: PERRL, extraocular movements intact, sclera anicteric, conjunctiva clear. No ptosis. ENT: Ears normal, nares patent, oropharynx clear without exudates, moist mucous membranes. NECK: Trachea midline, full range of motion, supple. LUNGS: Breath sounds equal, clear to auscultation bilaterally, no wheezes, no crackles, no accessory muscle use. HEART: Regular rate and rhythm, S1, S2 without murmur, rub or gallop. ABDOMEN: Soft, nontender, nondistended, normoactive bowel sounds, no guarding, no rebound, no hepatosplenomegaly, no masses. EXTREMITIES: 2+ pulses, warm, well-perfused, no edema. Right LE pain with movement; decreased ROM NEUROLOGICAL: Cranial nerves II through XII grossly intact. Normal speech, gait not observed. PSYCH: Normal mood, normal affect. SKIN: Warm, dry, normal turgor, no rashes or lesions noted Laboratory Results - last 24 hr 08/21/17 08/21/17 08/21/17 17:25 17:25 17:25 WBC 11.3 H D RBC 5.09 Hgb 15.2 Hct 44.3 MCV 87.0 MCH 29.8 MCHC 34.2 RDW 13.1 Plt Count 149 MPV 9.2 Neutrophils % 78.7 Lymphocytes % 12.3 D Monocytes % 8.2 Eosinophils % 0.4 Basophils % 0.4 PT with INR Cancelled INR Cancelled Sodium 134 L Potassium 5.1 D Chloride 104 Carbon Dioxide 23 Anion Gap 7 L BUN 17 D Creatinine 1.1 Creat Clearance w eGFR > 60 POC Glucometer Random Glucose 306 H* D Calcium 8.5 Magnesium 2.4 Total Bilirubin 1.3 H D AST 39 H D ALT 35 D Alkaline Phosphatase 107 Total Protein 7.8 Albumin 3.8 Urine Color Urine Appearance Urine pH Ur Specific Doddridge Urine Protein Urine Glucose (UA) Urine Ketones Urine Blood Urine Nitrite Urine Bilirubin Urine Urobilinogen Ur Leukocyte Esterase Anti-A Titer Blood Type Antibody Screen Spec Expiration Date 08/21/17 08/21/17 08/21/17 17:25 18:40 20:34 WBC RBC Hgb Hct MCV MCH MCHC RDW Plt Count MPV Neutrophils % Lymphocytes % Monocytes % Eosinophils % Basophils % PT with INR INR Sodium Potassium Chloride Carbon Dioxide Anion Gap BUN Creatinine Creat Clearance w eGFR POC Glucometer 285 Random Glucose Calcium Magnesium Total Bilirubin AST ALT Alkaline Phosphatase Total Protein Albumin Urine Color Lt. yellow Urine Appearance Clear Urine pH 6.0 Ur Specific Doddridge 1.010 Urine Protein Negative Urine Glucose (UA) 3+ H Urine Ketones 1+ H Urine Blood Trace-inta Urine Nitrite Negative Urine Bilirubin Negative Urine Urobilinogen 0.2 Ur Leukocyte Esterase Negative Anti-A Titer Cancelled Blood Type Cancelled Antibody Screen Cancelled Spec Expiration Date Cancelled 08/22/17 08/22/17 08/22/17 06:00 06:00 06:00 WBC 8.0 RBC 4.83 Hgb 14.3 Hct 41.3 MCV 85.6 MCH 29.7 MCHC 34.7 RDW 12.9 Plt Count 141 MPV 8.9 Neutrophils % 67.9 Lymphocytes % 20.9 D Monocytes % 10.1 Eosinophils % 0.7 Basophils % 0.4 PT with INR 12.50 H INR 1.11 Sodium Potassium Chloride Carbon Dioxide Anion Gap BUN Creatinine Creat Clearance w eGFR POC Glucometer Random Glucose Calcium Magnesium Total Bilirubin AST ALT Alkaline Phosphatase Total Protein Albumin Urine Color Urine Appearance Urine pH Ur Specific [place] Urine Protein Urine Glucose (UA) Urine Ketones Urine Blood Urine Nitrite Urine Bilirubin Urine Urobilinogen Ur Leukocyte Esterase Anti-A Titer Blood Type AB POSITIVE Antibody Screen Negative Spec Expiration Date 08/22/17 08/22/17 06:00 06:13 WBC RBC Hgb Hct MCV MCH MCHC RDW Plt Count MPV Neutrophils % Lymphocytes % Monocytes % Eosinophils % Basophils % PT with INR INR Sodium 141 Potassium 3.7 D Chloride 105 Carbon Dioxide 27 Anion Gap 9 BUN 18 Creatinine 1.0 Creat Clearance w eGFR POC Glucometer 174 Random Glucose 183 H D Calcium 8.9 Magnesium Total Bilirubin AST ALT Alkaline Phosphatase Total Protein Albumin Urine Color Urine Appearance Urine pH Ur Specific Dod[place]idge Urine Protein Urine Glucose (UA) Urine Ketones Urine Blood Urine Nitrite Urine Bilirubin Urine Urobilinogen Ur Leukocyte Esterase Anti-A Titer Blood Type Antibody Screen Spec Expiration Date Active Medications Generic Name Dose Route Start Last Admin Trade Name Abel PRN Reason Stop Dose Admin Aspirin 81 mg 08/22/17 10:00 08/22/17 09:06 Asa - PO 81 mg DAILY MANOJ Administration Atorvastatin Calcium 80 mg 08/21/17 22:00 08/21/17 21:00 Lipitor - PO 80 mg HS MANOJ Administration Clopidogrel Bisulfate 75 mg 08/22/17 10:00 08/22/17 09:06 Plavix - PO 75 mg DAILY MANOJ Administration Heparin Sodium (Porcine) 5,000 unit 08/21/17 20:30 08/22/17 05:54 Heparin - SQ 5,000 unit TID MANOJ Administration Insulin Aspart 1 vial 08/21/17 18:45 08/22/17 06:16 Novolog Vial Sliding Scale - SQ 2 units ACHS MANOJ Administration Protocol Insulin Detemir 15 units 08/22/17 22:00 Levemir Vial SQ HS MANOJ Losartan Potassium 100 mg 08/22/17 10:00 08/22/17 09:06 Cozaar - PO 100 mg DAILY MANOJ Administration ASSESSMENT/PLAN: 67 yr old Mandarin-speaking man with uncontrolled IDDM, HTN, hx CVA 08/18/2017 with residual right LE weakness, brought into ED by family after mechanical fall with subsequent fibula fracture. #mechanical fall with right fibula fracture: -ortho consulted [facility] -pain control -splint -sub acute rehab #diabetes type II -15U levemir HS -novolog 70/30 35U bid -insulin SS -bgm #HTN -losartan 100mg po daily #recent CVA/HLD -lipitor 80mg po HS -ASA 81mg po HS -plavix 75mg po qd #DVT: Heparin TID #diet: diabetic/low sodium Disposition: orhto eval; rehab placement Visit type - Emergency Visit Emergency Visit: Yes ED Registration Date: 08/21/17 Care time: The patient presented to the Emergency Department on the above date and was hospitalized for further evaluation of their emergent condition. - New Patient This patient is new to me today: Yes Date on this admission: 08/22/17 - Critical Care Critical Care patient: No
[2017-08-22] MEDS: INSULIN (NOVOLOG MIX 70/30) 100 UNITS/ML MDV SQ SCH ×2 (11:39→15:58)
--- NOTE | 2017-08-22 11:45 | PN ---
Progress Note (short form) - Note Progress Note: Pt seen and examined. He is a 67 year old Male who had a CVA in the recent past , refused to go to rehab, was discharged from the hospital wednesday, was at home and fell on Wednesday, came to the ER on Wednesday c/o right ankle pain. In the ER xrays showed that he has a moderately displaced right ankle trimalleolar fracture. A closed reduction was performed, and he was put into a posterior splint with a side bar. He is comfortable. He only speaks Thai. PE Right ankle in a splint as described. Grossly NVI, good ROM of the toes No sig swelling Xrays As described, a mod displaced right ankle trimalleolar fracture. Imp Right ankle trimal fx, displaced, needs surgery/ORIF Rec We need a Thai collar stay fuser tender (I spoke to nursing who is working on it) We need medical clearance for surgery, may happen Wednesday afternoon. I spoke with anesthesia about the recent CVA, there is no absolute contra indication for surgery but they would like a pre op neuro consult for clearance. NPO after midnight tonight in case he is cleared for tomorrow. Elevate RLE
[2017-08-22] MEDS ORDERED: INSULIN (NOVOLOG) ASPART 100 UNITS/ML 10ML VIAL ONE (11:49)
--- NOTE | 2017-08-22 15:35 | CONSULT ---
Consult - text type - Consultation Consultation Note: NEUROLOGY CONSULTATION is greatly appreciated: This 67 yo RH man with h/o HTN, Hypercholesterolemia was seen by me last week after Left posterior thalamic launar infarction with mild right hemiparesis and hemisensory changes. Apparently refused rehab and was d/jaclyn to home but was readmitted last night after a fall with right fibular fracture. For ORIF in AM Exam: Patient is resting comfortably. In NAD Right ankle splinted No obvious facial weakness. Blinks to threat all griffin Mild right upward drift with sensory dystaxia. Normal reflexes. IMP: Mild residual Left cerebral dysfunction with sensory dystaxia after left posterior thalamic/internal capsule lacunar CVA. SUGGEST: No neuro contraindication to ORIF and anesthesia. Maintain normotensive. Resume clopidogrel post -op. PT for gait with walker. Thank you very much, David Felix MD
[2017-08-22] MEDS: INSULIN DETEMIR 100 UNITS/ML MDV SQ SCH (21:24)
[2017-08-22] MEDS: ATORVASTATIN CA 80 MG TABLET (FP) PO SCH (21:26)
[2017-08-22] MEDS ORDERED: INSULIN DETEMIR 100 UNITS/ML MDV SQ SCH (22:00)
[2017-08-23] MEDS: HEPARIN NA (PORCINE) 5,000 UNITS/ML 1ML VIAL SQ SCH ×3 (05:53→22:49)
[2017-08-23] MEDS: INSULIN (NOVOLOG MIX 70/30) 100 UNITS/ML MDV SQ SCH ×2 (06:00→16:50)
[2017-08-23] MEDS: INSULIN SLIDING SCALE (NOVOLOG) 1 VIAL SQ SCH ×4 (06:02→22:50)
--- NOTE | 2017-08-23 08:38 | PN ---
Physical Exam: SUBJECTIVE: Patient seen and examined. Maltese glass handler used. Pt states he is not in pain. Fell as he was trying to reach something. Continues to adamantly refuse rehab. Explained to patient that it is dangerous and he risks paralysis. Will try to have family convince patient. surgery Today. OBJECTIVE: Vital Signs Period Temp Pulse Resp BP Sys/Garza Pulse Ox Last 24 Hr 95 F-98.5 F 90-95 18-20 146-164/80-94 100 GEN: AAOx3, NAD, Lying comfortably HEENT: PERRLA, EOMi CV: S1, S2, RRR LUNG: CTABL ABD: Soft, NT, ND, normoactive BS MSK: Cast on LLE. No obvious pain. Nontender. 5/5 MSK strength in hip and knee flexion bilaterally. NEURO: No MSK or sensation deficits on either side. Gait no observed Active Medications Generic Name Dose Route Start Last Admin Trade Name Freq PRN Reason Stop Dose Admin Aspirin 81 mg 08/22/17 10:00 08/22/17 09:06 Asa - PO 81 mg DAILY MANOJ Administration Atorvastatin Calcium 80 mg 08/21/17 22:00 08/22/17 21:26 Lipitor - PO 80 mg HS MANOJ Administration Heparin Sodium (Porcine) 5,000 unit 08/21/17 20:30 08/23/17 05:53 Heparin - SQ Not Given TID MANOJ Insulin Aspart 1 vial 08/21/17 18:45 08/23/17 06:02 Novolog Vial Sliding Scale - SQ 2 units ACHS MANOJ Administration Protocol Insulin Aspart 35 units 08/22/17 11:30 08/23/17 06:00 Novolog Mix 70/30 Vial SQ Not Given BIDAC MANOJ Insulin Detemir 15 units 08/22/17 22:00 08/22/17 21:24 Levemir Vial SQ Not Given HS MANOJ Losartan Potassium 100 mg 08/22/17 10:00 08/22/17 09:06 Cozaar - PO 100 mg DAILY MANOJ Administration ASSESSMENT/PLAN: 67yo M wtih PMH TIA, dyslipidemia, HTN, DM and recent ischemic CVA presented to the ER after mechanical fall sustaining fracture to R fibula # Acute R ankle trimalleolar fracture - s/p fall. Pt had recent L thalamic CVA with residual R sided numbness and gait instability. Pt refused [facility] on last admission. Ortho saw patient, performed closed reduction. Cleared by Ortho and Neuro for ORIF. Surgery cancelled today. Will reschedule to Wednesday. # L thalamic infarct - Recent, cleared by neuro. Spoke to Ortho and will need to hold ASA + Plavix. Continue Lipitor. # HTN - Well controlled, continue home Losartan 100mg QD # IDDM - Continue Levemir 15u, 70/30, with ISS # FEN - No IVF, elec wnl, NPO # PPx - HSQ TID, heparin held at night due to procedure # Dispo - JIMMY for [facility] sent in AM, but patient now adamantly refusing rehab. Risks of falling again and becoming paralyzed were explained. Pt is in full understanding. Spoke with family who also refuses rehab stating that they are able to care for him. Risks explained to family who are in full understanding. d/w Dr Donte Perez MD - PGY1 Internal Medicine Visit type - Emergency Visit Emergency Visit: No - New Patient This patient is new to me today: No - Critical Care Critical Care patient: No - Discharge Referral Referred to [facility] Med [facility] No
--- NOTE | 2017-08-23 09:30 | PN ---
Progress Note (short form) - Note Progress Note: Ortho Pt seen and examined right trimalleolar fx splint intact, nvi a/p Risks and benefits were d/w pt via daughter as bank president, consent signed OR for right ankle orif today NPO lubaw Dr. Interiano
[2017-08-23] MEDS: ASPIRIN 81 MG CHEWABLE TABLETS PO SCH (09:34)
[2017-08-23] MEDS: LOSARTAN POTASSIUM 50 MG TABLET (FP) PO SCH (09:52)
--- NOTE | 2017-08-23 12:09 | PN ---
Progress Note (short form) - Note Progress Note: Ortho Surgery will be postponed until wednesday morning. Pt needs strict elevation and hold plavix to reduce swelling. OR scheduled for wednesday for right ankle ORIF
[2017-08-23] MEDS ORDERED: SENNOSIDES/DOCUSATE COMBO (SENNA PLUS) TABLET (UD) PO PRN (12:27)
--- NOTE | 2017-08-23 12:32 | PN ---
Teaching Attending Note Name of Resident: Ajay Perez ATTENDING PHYSICIAN STATEMENT I saw and evaluated the patient. I reviewed the resident's note and discussed the case with the resident. I agree with the resident's findings and plan as documented. SUBJECTIVE:asymptomatic. dneies CP, SOB, fever, chills, N/V/C/D OBJECTIVE: Last Vital Signs Temp Pulse Resp BP Pulse Ox 98.2 F 88 20 152/81 98 08/23/17 09:33 08/23/17 09:33 08/23/17 09:33 08/23/17 09:33 08/23/17 09:00 General NAD CV S1 S2 RRR no murmur/rub/gallop Lungs CTA B/L no wheezing/rales/rhonchi Extremities R foot wrapped. 1 + pedal edema pulse intact. ASSESSMENT AND PLAN: 67yo M wtih PMH TIA, dyslipidemia, HTN, DM and recent ischemic CVA presented to the ER after mechanical fall sustaining fracture to R fibula 1. Acute R distal fibula fracture- s/p mechanical fall. in soft cast. was planned for ORIF today however now cancelled. NPO wednesday. hold plavix. cleared by neuro. PT eval afterwards. initially pt agreeing to go to [facility] after surgery however today is refusing. will speak with family to decide wishes. encouraged pt [facility] would be more beneficial and decrease risks. ortho on board 2. L thalmic lacunar infarct- clinically stable. cont asa/lipitor. plavix on hold for surgery. will re-start at ortho recommendations 3. HTN- above goal. pain seems to be controlled. start low dose norvasc. cont losartan 4. DM- controlled. cont home medications. levemir, 70/30, iss 5. mild leukocytosis- likely reactive. resolved. no indication for abx 6. DVT ppx- Hep sq
[2017-08-23] MEDS ORDERED: ACETAMINOPHEN 325 MG TABLET (FP) PO PRN (13:05)
[2017-08-23] MEDS ORDERED: oxyCODONE HCL 5 MG TABLET PO PRN (13:05)
--- NOTE | 2017-08-23 14:21 | MSN ---
Progress Note (short form) - Note Progress Note: SUBJECTIVE Pt seen and examined at bedside. Pt was in no acute distress and denied any pain in the ankle. Per car trimmer, pt fell in the presence of his when he was trying to grab something. He denied any head trauma, LOC, or dizziness prior to fall. Pt and family both refused SNF placement, even after thorough explanation of possible future risks associated with refusal of rehab. Also, complained of pins and needles sensation on RUE, likely residual side-effect of the acute CVA on 08/18. Asymptomatic this AM; denied any CP, palpitations, SOB, fever, chills, nausea, vomiting, diarrhea, constipation or any urinary symptoms. OBJECTIVE Last Vital Signs Temp Pulse Resp BP Pulse Ox 98.2 F 88 20 152/81 98 08/23/17 09:33 08/23/17 09:33 08/23/17 09:33 08/23/17 09:33 08/23/17 09:00 GEN: AOX3, NAD HEENT: PERRLA, EOMI CV: RRR S1 S2 No MRG LUNG: CTA b/l ABD: +bowel sounds, soft, ND, NT MSK: Splint and soft case of RLE; 5/5 strength UE and LE b/l NEURO: CN II-XII grossly intact; no facial droop or slurring of speech; sensation intact Laboratory Last Values WBC 8.0 K/mm3 (4.0-10.0) 08/22/17 06:00 RBC 4.83 M/mm3 (4.00-5.60) 08/22/17 06:00 Hgb 14.3 GM/dL (11.7-16.9) 08/22/17 06:00 Hct 41.3 % (35.4-49) 08/22/17 06:00 MCV 85.6 fl (80-96) 08/22/17 06:00 MCH 29.7 pg (25.7-33.7) 08/22/17 06:00 MCHC 34.7 g/dl (32.0-35.9) 08/22/17 06:00 RDW 12.9 % (11.9-15.9) 08/22/17 06:00 Plt Count 141 K/MM3 (134-434) 08/22/17 06:00 MPV 8.9 fl (7.5-11.1) 08/22/17 06:00 Neutrophils % 67.9 % (42.8-82.8) 08/22/17 06:00 Lymphocytes % 20.9 % (8-40) D 08/22/17 06:00 Monocytes % 10.1 % (3.8-10.2) 08/22/17 06:00 Eosinophils % 0.7 % (0-4.5) 08/22/17 06:00 Basophils % 0.4 % (0-2.0) 08/22/17 06:00 PT with INR 12.50 SEC (9.98-11.88) H 08/22/17 06:00 INR 1.11 (0.82-1.09) 08/22/17 06:00 Sodium 141 mmol/L (136-145) 08/22/17 06:00 Potassium 3.7 mmol/L (3.5-5.1) D 08/22/17 06:00 Chloride 105 mmol/L (98-107) 08/22/17 06:00 Carbon Dioxide 27 mmol/L (21-32) 08/22/17 06:00 Anion Gap 9 (8-16) 08/22/17 06:00 BUN 18 mg/dL (7-18) 08/22/17 06:00 Creatinine 1.0 mg/dL (0.7-1.3) 08/22/17 06:00 Creat Clearance w eGFR > 60 (>60) 08/21/17 17:25 POC Glucometer 143 UNITS (80-120) 08/23/17 11:43 Random Glucose 183 mg/dL (74-106) H D 08/22/17 06:00 Calcium 8.9 mg/dL (8.5-10.1) 08/22/17 06:00 Magnesium 2.4 mg/dL (1.8-2.4) 08/21/17 17:25 Total Bilirubin 1.3 mg/dL (0.2-1.0) H D 08/21/17 17:25 AST 39 U/L (15-37) H D 08/21/17 17:25 ALT 35 U/L (12-78) D 08/21/17 17:25 Alkaline Phosphatase 107 U/L (45-117) 08/21/17 17:25 Total Protein 7.8 g/dl (6.4-8.2) 08/21/17 17:25 Albumin 3.8 g/dl (3.4-5.0) 08/21/17 17:25 Urine Color Lt. yellow 08/21/17 18:40 Urine Appearance Clear 08/21/17 18:40 Urine pH 6.0 (5.0-8.0) 08/21/17 18:40 Ur Specific [place] 1.010 (1.001-1.035) 08/21/17 18:40 Urine Protein Negative (NEGATIVE) 08/21/17 18:40 Urine Glucose (UA) 3+ (NEGATIVE) H 08/21/17 18:40 Urine Ketones 1+ (NEGATIVE) H 08/21/17 18:40 Urine Blood Trace-inta (NEGATIVE) 08/21/17 18:40 Urine Nitrite Negative (NEGATIVE) 08/21/17 18:40 Urine Bilirubin Negative (NEGATIVE) 08/21/17 18:40 Urine Urobilinogen 0.2 mg/dL (0.2-1.0) 08/21/17 18:40 Ur Leukocyte Esterase Negative (NEGATIVE) 08/21/17 18:40 Anti-A Titer Cancelled 08/21/17 17:25 Blood Type AB POSITIVE 08/22/17 06:00 Antibody Screen Negative 08/22/17 06:00 Spec Expiration Date Cancelled 08/21/17 17:25 Home Medications Medication Instructions Recorded Insulin (Novolog 70/30) [Novolog 32 units SQ BIDAC #7 pen 08/30/14 Mix 70/30 Flexpen -] Losartan Potassium [Cozaar -] 100 mg PO DAILY #30 tablet 08/30/14 Aspirin [Children's Aspirin] 81 mg PO DAILY 08/18/17 Insulin Degludec [Tresiba 15 unit SQ HS 08/18/17 Flextouch U-100] Atorvastatin Ca [Lipitor] 80 mg PO HS #30 tab 08/20/17 Clopidogrel Bisulfate [Plavix -] 75 mg PO DAILY #30 tablet 08/20/17 AP Pt is a 67y/o M with PMHx of TIA, HTN, DM, CAD, HLD, and a recent CVA who presented to the ED with R ankle pain s/p mechanical fall, found to have a trimalleolar fracture. 1. Acute R ankle fracture s/p mechanical fall -R foot Xray showed moderately displaced trimalleolar fracture with widened mortis -Seen by ortho; closed reduction performed and approved for ORIF today but was cancelled and rescheduled for wednesday -plavix and aspirin held; NPO after midnight on wednesday -pain control with oxycodone and tylenelol PRN -recent acute posterolateral L thalamic with residual R sided weakness and unsteady gait; refused SNF placement for PT rehab last visit; both family and patient refused SNF placement again after surgery; risks of refusal explained and fully understood by both pt and family 2. L posterolateral thalamic infarct -clinically stable; some residual RUE paresthesia; no evident facial droop or slurring of speech -continue lipitor; plavix and aspirin on hold, resume after surgery -clear by neuro for surgery 3. HTN -164/94 this AM -continue home dose of losartan 100 mg; consider adding low dose of norvasc to regime 4. Mild leukocytosis -most likely reactive 5. DM -HbA1C: 9.6 -ISS; BGM ACHS -continue home meds - novolog 70/30, levemir 15 u 6. HLD -continue lipitor 80 mg QD 7. FEN -No IVFs -lytes wnl -regular diet 6. PPx -DVT: Heparin SQ TID -No GI Ppx Dispo: Awaiting ORIF on wednesday (plavix and aspirin held, resume after surgery ); refused SNF Idania Vaughan, MS3
[2017-08-23] MEDS ORDERED: INSULIN (NOVOLOG MIX 70/30) 100 UNITS/ML MDV SQ ONE ×2 (16:47→17:49)
[2017-08-23] MEDS ORDERED: INSULIN (NOVOLOG) ASPART 100 UNITS/ML 10ML VIAL ONE (17:49)
[2017-08-23] MEDS: ATORVASTATIN CA 80 MG TABLET (FP) PO SCH (22:49)
[2017-08-23] MEDS: INSULIN DETEMIR 100 UNITS/ML MDV SQ SCH (22:51)
[2017-08-24] MEDS: HEPARIN NA (PORCINE) 5,000 UNITS/ML 1ML VIAL SQ SCH ×2 (06:03→14:01)
[2017-08-24] MEDS: INSULIN (NOVOLOG MIX 70/30) 100 UNITS/ML MDV SQ SCH ×2 (06:04→17:29)
[2017-08-24] MEDS: INSULIN SLIDING SCALE (NOVOLOG) 1 VIAL SQ SCH ×4 (06:04→22:29)
--- NOTE | 2017-08-24 08:02 | PN ---
Physical Exam: SUBJECTIVE: Patient seen and examined. Doing well. Not in a lot of pain. Still refuses rehabilitation, brought it up again with [facility] rinkman. Understands surgery is tomorrow. OBJECTIVE: Vital Signs Period Temp Pulse Resp BP Sys/Garza Pulse Ox Last 24 Hr 98.0 F-98.7 F 64-88 16-20 116-153/56-86 97-98 GEN: AAOx3, NAD, Lying comfortably HEENT: PERRLA, EOMi CV: S1, S2, RRR LUNG: CTABL ABD: Soft, NT, ND, normoactive BS MSK: Cast on LLE. No obvious pain. Nontender. 5/5 MSK strength in hip and knee flexion bilaterally. NEURO: No MSK or sensation deficits on either side. Gait no observed Active Medications Generic Name Dose Route Start Last Admin Trade Name Freq PRN Reason Stop Dose Admin Acetaminophen 650 mg 08/23/17 13:05 08/23/17 14:10 Tylenol - PO 08/26/17 13:04 650 mg Q4H PRN Administration PAIN Aspirin 81 mg 08/22/17 10:00 08/23/17 09:34 Asa - PO Not Given DAILY MANOJ Atorvastatin Calcium 80 mg 08/21/17 22:00 08/23/17 22:49 Lipitor - PO 80 mg HS MANOJ Administration Heparin Sodium (Porcine) 5,000 unit 08/21/17 20:30 08/24/17 06:03 Heparin - SQ 5,000 unit TID MANOJ Administration Insulin Aspart 1 vial 08/21/17 18:45 08/24/17 06:04 Novolog Vial Sliding Scale - SQ Not Given ACHS [facility] Protocol Insulin Aspart 35 units 08/22/17 11:30 08/24/17 06:04 Novolog Mix 70/30 Vial SQ Not Given BIDAC MANOJ Insulin Detemir 15 units 08/22/17 22:00 08/23/17 22:51 Levemir Vial SQ Not Given HS MANOJ Losartan Potassium 100 mg 08/22/17 10:00 08/23/17 09:52 Cozaar - PO 100 mg DAILY MANOJ Administration Oxycodone HCl 10 mg 08/23/17 13:05 08/23/17 14:08 Roxicodone - PO 10 mg Q4H PRN Administration PAIN Senna/Docusate Sodium 2 tablet 08/23/17 12:27 Pericolace - PO HS PRN CONSTIPATION ASSESSMENT/PLAN: 67yo M wtih PMH TIA, dyslipidemia, HTN, DM and recent ischemic CVA presented to the ER after mechanical fall sustaining fracture to R fibula # Acute R ankle trimalleolar fracture - s/p fall. Pt had recent L thalamic CVA with residual R sided numbness and gait instability. Pt refused [facility] on last admission. Ortho saw patient, performed closed reduction. Cleared by Ortho and Neuro for ORIF. Surgery scheduled for Wednesday. Hold ASA and plavix for then. NPO after midnight tonight. # L thalamic infarct - Recent, cleared by neuro. Spoke to Ortho and will need to hold ASA + Plavix. Continue Lipitor. # HTN - Well controlled, continue home Losartan 100mg QD, added Norvasc 5mg daily # IDDM - Continue Levemir 15u, 70/30, with ISS # FEN - No IVF, elec wnl, NPO # PPx - HSQ TID, heparin held at night due to procedure # Dispo - Patient continues to adamantly refuse rehab. Risks of falling again and becoming paralyzed were explained. Pt is in full understanding. Spoke with family who also refuses rehab stating that they are able to care for him. Risks explained to family who are in full understanding. d/w Dr Joanne Perez MD - PGY1 Internal Medicine Visit type - Emergency Visit Emergency Visit: No - New Patient This patient is new to me today: No - Critical Care Critical Care patient: No - Discharge Referral Referred to [facility] Med P.C.: No
[2017-08-24 08:05] LABS: ANION GAP 10 (8-16); CALCIUM 8.8 mg/dL (8.5-10.1); CO2 26 mmol/L (21-32); CREATININE 0.9 mg/dL (0.7-1.3); GLUCOSE,RANDOM 145 mg/dL (74-106)
[2017-08-24] MEDS: LOSARTAN POTASSIUM 50 MG TABLET (FP) PO SCH (09:45)
[2017-08-24] MEDS: amLODIPine BESYLATE 5 MG TABLET (FP) PO SCH (09:46)
--- NOTE | 2017-08-24 12:54 | PN ---
Teaching Attending Note Name of Resident: Ajay Perez ATTENDING PHYSICIAN STATEMENT Time of evaluation: 9:30 Am I saw and evaluated the patient. I reviewed the resident's note and discussed the case with the resident. I agree with the resident's findings and plan as documented. SUBJECTIVE: Patient seen and examined. Right ankle pain under control, no new complaints. PLeasant. OBJECTIVE: Vital Signs Period Temp Pulse Resp BP Sys/Garza Pulse Ox Last 24 Hr 98 F-98.7 F 64-90 16-20 116-158/56-94 96-97 Intake & Output 08/21/17 08/22/17 08/23/17 08/24/17 23:59 23:59 23:59 23:59 Intake Total 70 1750 250 200 Output Total 300 2550 500 350 Balance -230 -800 -250 -150 Weight 140 lb General: sitting in chair in no acute distress CVS:S1S2 regular Chest: few bibasilar rales Abdomen: soft, NT, ND extremities: RLE cast, positive DP pulses, well perfused, no surrounding swelling Home Medication List Medication Instructions Recorded Confirmed Type Aspirin [Children's Aspirin] 81 mg PO DAILY 08/18/17 08/21/17 History Insulin Degludec [Tresiba 15 unit SQ HS 08/18/17 08/21/17 History Flextouch U-100] Active Medications Generic Name Dose Route Start Last Admin Trade Name Freq PRN Reason Stop Dose Admin Acetaminophen 650 mg 08/23/17 13:05 08/23/17 14:10 Tylenol - PO 08/26/17 13:04 650 mg Q4H PRN Administration PAIN Amlodipine Besylate 5 mg 08/24/17 09:00 08/24/17 09:46 Norvasc - PO 5 mg DAILY MANOJ Administration Atorvastatin Calcium 80 mg 08/21/17 22:00 08/23/17 22:49 Lipitor - PO 80 mg HS MANOJ Administration Heparin Sodium (Porcine) 5,000 unit 08/21/17 20:30 08/24/17 06:03 Heparin - SQ 5,000 unit TID AMNOJ Administration Insulin Aspart 1 vial 08/21/17 18:45 08/24/17 12:16 Novolog Vial Sliding Scale - SQ 8 units ACHS MANOJ Administration Protocol Insulin Aspart 35 units 08/22/17 11:30 08/24/17 06:04 Novolog Mix 70/30 Vial SQ Not Given BIDAC MANOJ Insulin Detemir 15 units 08/22/17 22:00 08/23/17 22:51 Levemir Vial SQ Not Given HS MANOJ Losartan Potassium 100 mg 08/22/17 10:00 08/24/17 09:45 Cozaar - PO 100 mg DAILY MANOJ Administration Oxycodone HCl 10 mg 08/23/17 13:05 08/23/17 14:08 Roxicodone - PO 10 mg Q4H PRN Administration PAIN Senna/Docusate Sodium 2 tablet 08/23/17 12:27 Pericolace - PO HS PRN CONSTIPATION Laboratory Results - last 24 hr 08/23/17 08/23/17 08/24/17 16:36 22:45 05:44 Sodium Potassium Chloride Carbon Dioxide Anion Gap BUN Creatinine POC Glucometer 368 83 89 Random Glucose Calcium 08/24/17 08/24/17 07:21 12:15 Sodium 141 Potassium 3.5 Chloride 105 Carbon Dioxide 26 Anion Gap 10 BUN 15 Creatinine 0.9 POC Glucometer 322 Random Glucose 145 H D Calcium 8.8 ASSESSMENT AND PLAN: 67 yom with HTN, HLD, uncontrolled IDDM, recently admitted to [facility] with left posterior thalamic/internal capsule CVA refused SNF, comes back with fall and right ankle trimalleolar fracture planned for ORIF. -Right ankle trimalleolar fracture s/p fall -Recent Left posterior Thalamic/internal capsule CVA with residual minimal RUE sensory deficits/earlier RLE weakness -Uncontrolled HTN -IDDM -HLD Plan: For ORIF in AM, pain control oxycodone/acetaminophen prn, NWB RLE, bowel regimen. Neurology input noted, HOld ASA/plavix pre-operatively, resume per orthopedic. COntinue statin Novolog 70/30/levemir/ISS, diabetic diet. Continue losartan. Start on norvasc. Pain control. DVTPPX dispo pending ORIF above, Patient and family decline placement and risks have been explained. Plan for home d/c post surgery if no new concerns.
--- NOTE | 2017-08-24 13:45 | MSN ---
Progress Note (short form) - Note Progress Note: SUBJECTIVE Pt seen and examined at bedside. Pt was in no acute distress and lying comfortably in bed. Denied any pain in the ankle however, mentioned having pain while pt ambulates to the bathroom and back. Pt is non-weight bearing on the RLE ; understands that and is very careful with ambulation. Attempted to convince pt and family again about the need and benefit of going to a SNF; both still refusing. Stated pins and needles sensation on RUE is still there, likely residual side-effect of the acute CVA on 08/18. Denied any CP, palpitations, SOB , fever, chills, nausea, vomiting, diarrhea, constipation or any urinary symptoms. OBJECTIVE Last Vital Signs Temp Pulse Resp BP Pulse Ox 98 F 90 20 158/94 96 08/24/17 09:42 08/24/17 09:42 08/24/17 09:42 08/24/17 09:42 08/24/17 09:00 GEN: AOX3, NAD, lying comfortably CV: RRR S1 S2 No MRG LUNG: CTA b/l ABD: +bowel sounds, soft, ND, NT MSK: Splint and soft cast on RLE; 5/5 strength hip and knee flexion b/l; sensation and pulses intact b/l NEURO: CN II-XII grossly intact Laboratory Last Values WBC 8.0 K/mm3 (4.0-10.0) 08/22/17 06:00 RBC 4.83 M/mm3 (4.00-5.60) 08/22/17 06:00 Hgb 14.3 GM/dL (11.7-16.9) 08/22/17 06:00 Hct 41.3 % (35.4-49) 08/22/17 06:00 MCV 85.6 fl (80-96) 08/22/17 06:00 MCH 29.7 pg (25.7-33.7) 08/22/17 06:00 MCHC 34.7 g/dl (32.0-35.9) 08/22/17 06:00 RDW 12.9 % (11.9-15.9) 08/22/17 06:00 Plt Count 141 K/MM3 (134-434) 08/22/17 06:00 MPV 8.9 fl (7.5-11.1) 08/22/17 06:00 Neutrophils % 67.9 % (42.8-82.8) 08/22/17 06:00 Lymphocytes % 20.9 % (8-40) D 08/22/17 06:00 Monocytes % 10.1 % (3.8-10.2) 08/22/17 06:00 Eosinophils % 0.7 % (0-4.5) 08/22/17 06:00 Basophils % 0.4 % (0-2.0) 08/22/17 06:00 PT with INR 12.50 SEC (9.98-11.88) H 08/22/17 06:00 INR 1.11 (0.82-1.09) 08/22/17 06:00 Sodium 141 mmol/L (136-145) 08/24/17 07:21 Potassium 3.5 mmol/L (3.5-5.1) 08/24/17 07:21 Chloride 105 mmol/L (98-107) 08/24/17 07:21 Carbon Dioxide 26 mmol/L (21-32) 08/24/17 07:21 Anion Gap 10 (8-16) 08/24/17 07:21 BUN 15 mg/dL (7-18) 08/24/17 07:21 Creatinine 0.9 mg/dL (0.7-1.3) 08/24/17 07:21 Creat Clearance w eGFR > 60 (>60) 08/21/17 17:25 POC Glucometer 322 UNITS (80-120) 08/24/17 12:15 Random Glucose 145 mg/dL (74-106) H D 08/24/17 07:21 Calcium 8.8 mg/dL (8.5-10.1) 08/24/17 07:21 Magnesium 2.4 mg/dL (1.8-2.4) 08/21/17 17:25 Total Bilirubin 1.3 mg/dL (0.2-1.0) H D 08/21/17 17:25 AST 39 U/L (15-37) H D 08/21/17 17:25 ALT 35 U/L (12-78) D 08/21/17 17:25 Alkaline Phosphatase 107 U/L (45-117) 08/21/17 17:25 Total Protein 7.8 g/dl (6.4-8.2) 08/21/17 17:25 Albumin 3.8 g/dl (3.4-5.0) 08/21/17 17:25 Urine Color Lt. yellow 08/21/17 18:40 Urine Appearance Clear 08/21/17 18:40 Urine pH 6.0 (5.0-8.0) 08/21/17 18:40 Ur Specific [place] 1.010 (1.001-1.035) 08/21/17 18:40 Urine Protein Negative (NEGATIVE) 08/21/17 18:40 Urine Glucose (UA) 3+ (NEGATIVE) H 08/21/17 18:40 Urine Ketones 1+ (NEGATIVE) H 08/21/17 18:40 Urine Blood Trace-inta (NEGATIVE) 08/21/17 18:40 Urine Nitrite Negative (NEGATIVE) 08/21/17 18:40 Urine Bilirubin Negative (NEGATIVE) 08/21/17 18:40 Urine Urobilinogen 0.2 mg/dL (0.2-1.0) 08/21/17 18:40 Ur Leukocyte Esterase Negative (NEGATIVE) 08/21/17 18:40 Anti-A Titer Cancelled 08/21/17 17:25 Blood Type AB POSITIVE 08/22/17 06:00 Antibody Screen Negative 08/22/17 06:00 Spec Expiration Date Cancelled 08/21/17 17:25 Home Medications Medication Instructions Recorded Insulin (Novolog 70/30) [Novolog 32 units SQ BIDAC #7 pen 08/30/14 Mix 70/30 Flexpen -] Losartan Potassium [Cozaar -] 100 mg PO DAILY #30 tablet 08/30/14 Aspirin [Children's Aspirin] 81 mg PO DAILY 08/18/17 Insulin Degludec [Tresiba 15 unit SQ HS 08/18/17 Flextouch U-100] Atorvastatin Ca [Lipitor] 80 mg PO HS #30 tab 08/20/17 Clopidogrel Bisulfate [Plavix -] 75 mg PO DAILY #30 tablet 08/20/17 AP Pt is a 67y/o M with PMHx of TIA, HTN, DM, CAD, HLD, and a recent CVA who presented to the ED with R ankle pain s/p mechanical fall, found to have a trimalleolar fracture. 1. Acute R ankle fracture s/p mechanical fall -R foot Xray showed moderately displaced trimalleolar fracture with widened mortis -Seen by ortho; closed reduction performed on admission and approved for R ankle ORIF tomorrow -plavix and aspirin held; NPO after midnight today -pain well-controlled with percocet PRN -recent acute posterolateral L thalamic with residual R sided weakness and unsteady gait; refused SNF placement for PT rehab last visit; talked to both family and patient again today about SNF placement post surgery for rehab and strengthening, thoroughly explained the benefits of therapy and risks of refusal , both expressed full understanding but still refused 2. L posterolateral thalamic infarct -clinically stable; some residual RUE paresthesia; no evident facial droop or slurring of speech -continue lipitor; plavix and aspirin on hold, resume after surgery -clear by neuro for surgery 3. HTN -158/94 this AM -continue home dose of losartan 100 mg; 5 mg norvasc added to regime 4. DM -HbA1C: 9.6 -ISS; BGM ACHS -continue home meds - novolog 70/30, levemir 15 u 5. HLD -continue lipitor 80 mg QD 6. FEN -No IVFs -lytes wnl -renal diet 7. PPx -DVT: Heparin SQ TID -No GI Ppx Dispo: R ankle ORIF 8AM tomorrow (plavix and aspirin held, resume after surgery ; NPO after midnight); refused SNF Idania Vaughan, MS3
[2017-08-24] MEDS ORDERED: INSULIN (NOVOLOG MIX 70/30) 100 UNITS/ML MDV SQ ONE ×2 (17:26→17:55)
[2017-08-24] MEDS ORDERED: INSULIN (NOVOLOG) ASPART 100 UNITS/ML 10ML VIAL ONE (17:55)
[2017-08-24] MEDS: ATORVASTATIN CA 80 MG TABLET (FP) PO SCH (22:28)
[2017-08-24] MEDS: INSULIN DETEMIR 100 UNITS/ML MDV SQ SCH (22:43)
[2017-08-25] MEDS: INSULIN SLIDING SCALE (NOVOLOG) 1 VIAL SQ SCH ×4 (07:10→21:29)
[2017-08-25] MEDS: INSULIN (NOVOLOG MIX 70/30) 100 UNITS/ML MDV SQ SCH ×2 (07:10→18:11)
[2017-08-25] MEDS ORDERED: ROPIVACAINE HCL 0.5% 30ML VIAL ONE (07:12)
[2017-08-25] MEDS ORDERED: MIDAZOLAM HCL 2 MG/2 ML SINGLE DOSE VIAL ONE ×3 (07:13→07:20)
[2017-08-25] MEDS ORDERED: fentaNYL CITRATE 250 MCG/5 ML VIAL ONE (07:20)
[2017-08-25] MEDS ORDERED: ROCURONIUM BROMIDE 50 MG/5 ML VIAL ONE (07:23)
[2017-08-25] MEDS ORDERED: LIDOCAINE HCL/PF 2% SDV 5ML VIAL ONE ×2 (07:23→08:42)
--- NOTE | 2017-08-25 07:43 | PN ---
Physical Exam: SUBJECTIVE: Patient seen and examined. Doing well. GOing to surgery today. OBJECTIVE: Vital Signs Period Temp Pulse Resp BP Sys/Garza Pulse Ox Last 24 Hr 97.9 F-98.2 F 83-91 18-20 134-160/77-94 96-96 GEN: AAOx3, NAD, Lying comfortably HEENT: PERRLA, EOMi CV: S1, S2, RRR LUNG: CTABL ABD: Soft, NT, ND, normoactive BS MSK: Cast on LLE. No obvious pain. Nontender. 5/5 MSK strength in hip and knee flexion bilaterally. NEURO: No MSK or sensation deficits on either side. Gait no observed Active Medications Generic Name Dose Route Start Last Admin Trade Name Freq PRN Reason Stop Dose Admin Acetaminophen 650 mg 08/23/17 13:05 08/23/17 14:10 Tylenol - PO 08/26/17 13:04 650 mg Q4H PRN Administration PAIN Amlodipine Besylate 5 mg 08/24/17 09:00 08/24/17 09:46 Norvasc - PO 5 mg DAILY MANOJ Administration Atorvastatin Calcium 80 mg 08/21/17 22:00 08/24/17 22:28 Lipitor - PO 80 mg HS MANOJ Administration Heparin Sodium (Porcine) 5,000 unit 08/21/17 20:30 08/24/17 14:01 Heparin - SQ 5,000 unit TID MANOJ Administration Insulin Aspart 1 vial 08/21/17 18:45 08/24/17 22:29 Novolog Vial Sliding Scale - SQ 2 units ACHS MANOJ Administration Protocol Insulin Aspart 35 units 08/22/17 11:30 08/24/17 17:29 Novolog Mix 70/30 Vial SQ 35 units BIDAC MANOJ Administration Insulin Detemir 15 units 08/22/17 22:00 08/24/17 22:43 Levemir Vial SQ 15 units HS MANOJ Administration Losartan Potassium 100 mg 08/22/17 10:00 08/24/17 09:45 Cozaar - PO 100 mg DAILY MANOJ Administration Senna/Docusate Sodium 2 tablet 08/23/17 12:27 Pericolace - PO HS PRN CONSTIPATION ASSESSMENT/PLAN: 67yo M wtih PMH TIA, dyslipidemia, HTN, DM and recent ischemic CVA presented to the ER after mechanical fall sustaining fracture to R fibula # Acute R ankle trimalleolar fracture - s/p fall from unsteady gait from stoke. Cleared for ORIF today. Continue meds post surgery. # Hx of CVA - Hx of L thalamic infarct, Cleared by neurology. # HTN - Well controlled, continue home Losartan 100mg QD, added Norvasc 5mg daily # IDDM - Continue Levemir 15u, 70/30, with ISS # FEN - No IVF, elec wnl, NPO # PPx - HSQ TID, heparin held at night due to procedure # Dispo - Patient and family refuse rehab, risks including paralysis was explained. Pending PT today. If doing well can d/c tmrw d/w Dr Joanne Perez MD - PGY1 Internal Medicine Visit type - Emergency Visit Emergency Visit: No - New Patient This patient is new to me today: No - Critical Care Critical Care patient: No - Discharge Referral Referred to [facility] Med P.C.: No
[2017-08-25] MEDS ORDERED: PROPOFOL 20 ML ONE ×3 (08:18→09:08)
[2017-08-25 08:26] LABS: ANION GAP 8 (8-16); CALCIUM 8.1 mg/dL (8.5-10.1); CO2 26 mmol/L (21-32); CREATININE 0.8 mg/dL (0.7-1.3); GLUCOSE,RANDOM 73 mg/dL (74-106)
[2017-08-25] MEDS ORDERED: ceFAZolin SODIUM 1 GM VIAL IVPB ONE (08:30)
[2017-08-25] MEDS ORDERED: SUCCINYLCHOLINE CHLORIDE 200 MG/10 ML VIAL ONE (08:51)
[2017-08-25] MEDS ORDERED: PHENYLEPHRINE HCL 10 MG/1 ML SINGLE DOSE VIAL ONE (08:54)
[2017-08-25] MEDS ORDERED: POTASSIUM CHLORIDE TABS 20 MEQ TABLET.ER (FP) PO ONE ×2 (09:00→10:16)
--- NOTE | 2017-08-25 09:31 | OP ---
Operative Note - Note: Operative Date: 08/25/17 Pre-Operative Diagnosis: right bi mal ankle fx Operation: ORIF R ANKLE SOPHIE Post-Operative Diagnosis: Same as Pre-op Anesthesia: General Operative Report Dictated: Yes
[2017-08-25] MEDS ORDERED: SENNOSIDES/DOCUSATE COMBO (SENNA PLUS) TABLET (UD) PO PRN (10:16)
[2017-08-25] MEDS ORDERED: ACETAMINOPHEN 325 MG TABLET (FP) PO PRN ×2 (10:16→10:34)
[2017-08-25] MEDS: amLODIPine BESYLATE 5 MG TABLET (FP) PO SCH ×2 (10:22→12:07)
[2017-08-25] MEDS: LOSARTAN POTASSIUM 50 MG TABLET (FP) PO SCH ×2 (10:22→12:07)
[2017-08-25] MEDS ORDERED: oxyCODONE HCL 5 MG TABLET PO PRN (10:34)
[2017-08-25 10:56] LABS: BASOPHIL 0.5 % (0-2.0); EOSINOPHIL 0.8 % (0-4.5); MCH 29.3 pg (25.7-33.7); MCHC 33.9 g/dl (32.0-35.9); MEAN CELL VOLUME 86.5 fl (80-96); MEAN PLT VOLUME 8.8 fl (7.5-11.1); NEUTROPHILS 74.4 % (42.8-82.8); PLATELET COUNT 167 K/MM3 (134-434); RDW 13.2 % (11.9-15.9); WHITE BLOOD COUNT 9.7 K/mm3 (4.0-10.0)
--- NOTE | 2017-08-25 11:11 | MSN ---
Progress Note (short form) - Note Progress Note: SUBJECTIVE Pt seen and examined at bedside. Pt was in no acute distress and lying comfortably in bed. Denied any ankle pain. Stated pins and needles sensation on RUE is still there, likely residual side-effect of the acute CVA on 08/18. Denied any CP, palpitations, SOB, fever, chills, nausea, vomiting, diarrhea, constipation or any urinary symptoms. Waiting to be taken down to surgery. OBJECTIVE Last Vital Signs Temp Pulse Resp BP Pulse Ox 97.6 F 88 16 160/82 98 08/25/17 10:28 08/25/17 10:28 08/25/17 10:28 08/25/17 10:28 08/25/17 10:20 GEN: AOX3, NAD, lying comfortably CV: RRR S1 S2 No MRG LUNG: CTA b/l ABD: +bowel sounds, soft, ND, NT MSK: Splint and soft cast on RLE; 5/5 strength hip and knee flexion b/l; sensation intact b/l; dorsalis pedis pulse present b/l Laboratory Last Values WBC 9.7 K/mm3 (4.0-10.0) 08/25/17 10:28 RBC 4.59 M/mm3 (4.00-5.60) 08/25/17 10:28 Hgb 13.5 GM/dL (11.7-16.9) 08/25/17 10:28 Hct 39.7 % (35.4-49) 08/25/17 10:28 MCV 86.5 fl (80-96) 08/25/17 10:28 MCH 29.3 pg (25.7-33.7) 08/25/17 10:28 MCHC 33.9 g/dl (32.0-35.9) 08/25/17 10:28 RDW 13.2 % (11.9-15.9) 08/25/17 10:28 Plt Count 167 K/MM3 (134-434) 08/25/17 10:28 MPV 8.8 fl (7.5-11.1) 08/25/17 10:28 Neutrophils % 74.4 % (42.8-82.8) 08/25/17 10:28 Lymphocytes % 17.1 % (8-40) 08/25/17 10:28 Monocytes % 7.2 % (3.8-10.2) 08/25/17 10:28 Eosinophils % 0.8 % (0-4.5) 08/25/17 10:28 Basophils % 0.5 % (0-2.0) 08/25/17 10:28 PT with INR 12.50 SEC (9.98-11.88) H 08/22/17 06:00 INR 1.11 (0.82-1.09) 08/22/17 06:00 Sodium 141 mmol/L (136-145) 08/25/17 05:35 Potassium 3.4 mmol/L (3.5-5.1) L 08/25/17 05:35 Chloride 107 mmol/L (98-107) 08/25/17 05:35 Carbon Dioxide 26 mmol/L (21-32) 08/25/17 05:35 Anion Gap 8 (8-16) 08/25/17 05:35 BUN 15 mg/dL (7-18) 08/25/17 05:35 Creatinine 0.8 mg/dL (0.7-1.3) 08/25/17 05:35 Creat Clearance w eGFR > 60 (>60) 08/21/17 17:25 POC Glucometer 93 UNITS (80-120) 08/25/17 05:56 Random Glucose 73 mg/dL (74-106) L D 08/25/17 05:35 Calcium 8.1 mg/dL (8.5-10.1) L 08/25/17 05:35 Magnesium 2.4 mg/dL (1.8-2.4) 08/21/17 17:25 Total Bilirubin 1.3 mg/dL (0.2-1.0) H D 08/21/17 17:25 AST 39 U/L (15-37) H D 08/21/17 17:25 ALT 35 U/L (12-78) D 08/21/17 17:25 Alkaline Phosphatase 107 U/L (45-117) 08/21/17 17:25 Total Protein 7.8 g/dl (6.4-8.2) 08/21/17 17:25 Albumin 3.8 g/dl (3.4-5.0) 08/21/17 17:25 Urine Color Lt. yellow 08/21/17 18:40 Urine Appearance Clear 08/21/17 18:40 Urine pH 6.0 (5.0-8.0) 08/21/17 18:40 Ur Specific [place] 1.010 (1.001-1.035) 08/21/17 18:40 Urine Protein Negative (NEGATIVE) 08/21/17 18:40 Urine Glucose (UA) 3+ (NEGATIVE) H 08/21/17 18:40 Urine Ketones 1+ (NEGATIVE) H 08/21/17 18:40 Urine Blood Trace-inta (NEGATIVE) 08/21/17 18:40 Urine Nitrite Negative (NEGATIVE) 08/21/17 18:40 Urine Bilirubin Negative (NEGATIVE) 08/21/17 18:40 Urine Urobilinogen 0.2 mg/dL (0.2-1.0) 08/21/17 18:40 Ur Leukocyte Esterase Negative (NEGATIVE) 08/21/17 18:40 Anti-A Titer Cancelled 08/21/17 17:25 Blood Type AB POSITIVE 08/22/17 06:00 Antibody Screen Negative 08/22/17 06:00 Spec Expiration Date Cancelled 08/21/17 17:25 Home Medications Medication Instructions Recorded Insulin (Novolog 70/30) [Novolog 32 units SQ BIDAC #7 pen 08/30/14 Mix 70/30 Flexpen -] Losartan Potassium [Cozaar -] 100 mg PO DAILY #30 tablet 08/30/14 Aspirin [Children's Aspirin] 81 mg PO DAILY 08/18/17 Insulin Degludec [Tresiba 15 unit SQ HS 08/18/17 Flextouch U-100] Atorvastatin Ca [Lipitor] 80 mg PO HS #30 tab 08/20/17 Clopidogrel Bisulfate [Plavix -] 75 mg PO DAILY #30 tablet 08/20/17 AP Pt is a 67y/o M with PMHx of TIA, HTN, DM, CAD, HLD, and a recent CVA who presented to the ED with R ankle pain s/p mechanical fall, found to have a trimalleolar fracture. 1. Acute R ankle fracture s/p mechanical fall -R foot Xray showed moderately displaced trimalleolar fracture with widened mortis -s/p R ankle ORIF; Non-weight bearing to RLE with crutches; doing well post- op (no fevers or pain) -plavix and aspirin still on hold; can resume tomorrow per ortho -pain well-controlled with acetaminophen/oxycodone PRN -recent acute posterolateral L thalamic with residual R sided weakness and unsteady gait; talked to patient again today about SNF placement for PT rehab but is adamantly refusing; risks of refusal explained and understood by pt; pt is however agreeable to home PT and will be D/Keven home with JONATHAN CHRISTIANSEN 2. L posterolateral thalamic infarct -clinically stable; some residual RUE paresthesia; no evident facial droop or slurring of speech -continue lipitor; plavix and aspirin still on hold, resume tomorrow per recommendation from ortho -clear by neuro for surgery 3. HTN -160/83 this AM -continue home dose of losartan 100 mg; 5 mg norvasc added to regime yesterday 4. DM -HbA1C: 9.6 -ISS; BGM ACHS -continue home meds - novolog 70/30, levemir 15 u 5. HLD -continue lipitor 80 mg QD 6. FEN -No IVFs -lytes wnl -renal diet 7. PPx -DVT: Heparin SQ TID -No GI Ppx Dispo: S/p R ankle ORIF; refused SNF for rehab but is agreeable to home PT with VNMilady Vaughan, MS3
--- NOTE | 2017-08-25 13:42 | PN ---
Teaching Attending Note Name of Resident: Ajay Perez ATTENDING PHYSICIAN STATEMENT I saw and evaluated the patient. I reviewed the resident's note and discussed the case with the resident. I agree with the resident's findings and plan as documented. SUBJECTIVE: Patient seen and examined. Got back from surgery, doing well, reports feels good , denies any pain currently. OBJECTIVE: Vital Signs Period Temp Pulse Resp BP Sys/Garza Pulse Ox Last 24 Hr 97.6 F-98.2 F 83-98 15-20 134-160/72-97 95-100 Intake & Output 08/22/17 08/23/17 08/24/17 08/25/17 23:59 23:59 23:59 23:59 Intake Total 1750 250 600 925 Output Total 2550 500 350 0 Balance -800 -250 250 925 GEneral: sitting in bed in no acute distress Extremities: RLE in cast, able to move toes, no pain, well perfused Home Medication List Medication Instructions Recorded Confirmed Type Aspirin [Children's Aspirin] 81 mg PO DAILY 08/18/17 08/21/17 History Insulin Degludec [Tresiba 15 unit SQ HS 08/18/17 08/21/17 History Flextouch U-100] Active Medications Generic Name Dose Route Start Last Admin Trade Name Freq PRN Reason Stop Dose Admin Acetaminophen 650 mg 08/25/17 10:34 Tylenol - PO Q4H PRN PAIN Amlodipine Besylate 5 mg 08/25/17 12:00 08/25/17 12:07 Norvasc - PO 5 mg DAILY MANOJ Administration Aspirin 81 mg 08/26/17 10:00 Ecotrin - PO DAILY MANOJ Atorvastatin Calcium 80 mg 08/25/17 22:00 Lipitor - PO HS MANOJ Clopidogrel Bisulfate 75 mg 08/26/17 10:00 Plavix - PO DAILY MANOJ Heparin Sodium (Porcine) 5,000 unit 08/25/17 22:00 Heparin - SQ BID MANOJ Cefazolin Sodium 1 gm in 10 mls @ 100 mls/hr 08/25/17 16:00 Ancef - IVPUSH 08/25/17 18:05 Q8H-IV MANOJ Insulin Aspart 35 units 08/25/17 16:30 Novolog Mix 70/30 Vial SQ BIDAC MANOJ Insulin Aspart 1 vial 08/25/17 11:00 08/25/17 11:50 Novolog Vial Sliding Scale - SQ Not Given ACHS [facility] Protocol Insulin Detemir 15 units 08/25/17 22:00 Levemir Vial SQ HS MANOJ Losartan Potassium 100 mg 08/25/17 12:00 08/25/17 12:07 Cozaar - PO 100 mg DAILY MANOJ Administration Oxycodone HCl 10 mg 08/25/17 10:34 Roxicodone - PO Q4H PRN PAIN Senna/Docusate Sodium 2 tablet 08/25/17 10:16 Pericolace - PO HS PRN CONSTIPATION Lab Results WBC 9.7 K/mm3 (4.0-10.0) 08/25/17 10:28 RBC 4.59 M/mm3 (4.00-5.60) 08/25/17 10:28 Hgb 13.5 GM/dL (11.7-16.9) 08/25/17 10:28 Hct 39.7 % (35.4-49) 08/25/17 10:28 MCV 86.5 fl (80-96) 08/25/17 10:28 MCHC 33.9 g/dl (32.0-35.9) 08/25/17 10:28 RDW 13.2 % (11.9-15.9) 08/25/17 10:28 Plt Count 167 K/MM3 (134-434) 08/25/17 10:28 Sodium 141 mmol/L (136-145) 08/25/17 05:35 Potassium 3.4 mmol/L (3.5-5.1) L 08/25/17 05:35 Chloride 107 mmol/L (98-107) 08/25/17 05:35 Carbon Dioxide 26 mmol/L (21-32) 08/25/17 05:35 Anion Gap 8 (8-16) 08/25/17 05:35 BUN 15 mg/dL (7-18) 08/25/17 05:35 Creatinine 0.8 mg/dL (0.7-1.3) 08/25/17 05:35 Random Glucose 73 mg/dL (74-106) L D 08/25/17 05:35 Calcium 8.1 mg/dL (8.5-10.1) L 08/25/17 05:35 Blood Type AB POSITIVE 08/22/17 06:00 Antibody Screen Negative 08/22/17 06:00 INR 1.11 (0.82-1.09) 08/22/17 06:00 ASSESSMENT AND PLAN: 67 yom with HTN, HLD, uncontrolled IDDM, recently admitted to [facility] with left posterior thalamic/internal capsule CVA refused SNF, comes back with fall and right ankle trimalleolar fracture planned for ORIF. -Right ankle trimalleolar fracture s/p fall, s/p closed reduction, now LAURO 08/25 -Recent Left posterior Thalamic/internal capsule CVA with residual minimal RUE sensory deficits/earlier RLE weakness -Uncontrolled HTN -IDDM -HLD Plan: s/p ORIF 08/25, doing well post operatively, pain control oxycodone/ acetaminophen prn, NWB RLE, bowel regimen. Taper narcotics as tolerated Neurology input noted, HOld ASA/plavix pre-operatively, resume per orthopedic. COntinue statin Novolog 70/30/levemir/ISS, diabetic diet. Continue losartan. Start on norvasc. Pain control. DVTPPX dispo pending ORIF above, Patient and family continue to decline placement and risks have been explained. Plan for d/c in 24 hours if no new concerns.
[2017-08-25] MEDS ORDERED: CEFAZOLIN 1 GM in DEXTROSE 5%-WATER - 50 ML IVPB SCH (16:00)
[2017-08-25] MEDS ORDERED: CEFAZOLIN 1 GM PUSH 1 GM/10 ML DISP.SYRIN IVPUSH SCH (16:00)
--- NOTE | 2017-08-25 17:45 | OP ---
DATE OF OPERATION: DATE OF DICTATION: 08/25/2017 PREOPERATIVE DIAGNOSIS: Right bimalleolar ankle fracture. POSTOPERATIVE DIAGNOSIS: Right bimalleolar ankle fracture. PROCEDURE: Open reduction internal fixation right bimalleolar ankle fracture. SURGICAL ATTENDING: David Interiano M.D. SHELTER CASE MANAGER: Sasha Caicedo, and Dr. Brasher, podiatric resident ANESTHESIA: Popliteal block and general. CLOSURE: Radha plate and screws both medially and laterally, and 2-0 Vicryl subcutaneous, and jaxon on skin. ESTIMATED BLOOD LOSS: Negligible. TOURNIQUET TIME: 38 minutes. COMPLICATIONS: None. CONDITION: In recovery in stable condition. DESCRIPTION OF PROCEDURE: Patient was taken to the operating room in August 25, 2017. Popliteal block as well as general anesthesia was administered by the anesthesiologist. IV Kefzol was given prophylactically prior to the case. A well-padded pneumatic tourniquet was placed on the right proximal calf, away from the fibula head. The right lower extremity was prepped and draped in the usual sterile fashion. An Esmarch bandage was used to exsanguinate the legs, and the tourniquet was inflated to 250 mmHg. An 8-cm longitudinal incision over the distal fibula was incised. Hemostasis was achieved with Bovie cautery. Sharp dissection was carried down to the level of the fracture. Periosteal elevator was used to clean off the fracture as well as curets and irrigation. Anatomic reduction was obtained using a serrated reduction clamp. Due to the softness of the bone comminution, we decided not to lag the fracture. A 5-hole distal fibula plate from Radha was clamped to the distal aspect of the fibula. Multiple proximal and distal holes were drilled, application of screws with appropriate type and length of screws. Initially non-locking screws were used to cinch the plate to the bone, and then locking screws were used to aid in fixation. Fluoroscopy revealed excellent position of the plate. Next our attention was directed to the medial side. A 5-cm curved longitudinal incision distal medial malleolus was incised, hemostasis achieved with Bovie cautery. Sharp dissection was carried down to the level of the fracture. Curets and irrigation were used to free up the fracture. A pointy reduction clamp was used to obtain an anatomical reduction. Two guidewires from the 4.0 cannula and screw were drilled from the tip of the medial malleolus past the fracture into the distal tibia. They were measured for length, and then screws with the appropriate length, 4.0 cannulated lag screws, achieving excellent compression of the fracture. The wires were removed. X-rays in the AP, mortise and lateral views revealed excellent position of the hardware with anatomical reduction of the fracture and the mortise. Both incisions were irrigated out with copious amounts of irrigation. The subcutaneous was closed with 2-0 Vicryl, and jaxon for skin and sterile pressure dressing, followed by a U-splint was applied. Tourniquet was deflated. Total tourniquet time was 38 minutes. The patient was awakened from anesthesia and transferred to recovery in stable condition with no complications. Estimated blood loss negligible. Roverto THOMAS/[id number]
[2017-08-25] MEDS: CEFAZOLIN 1 GM PUSH 1 GM/10 ML DISP.SYRIN IVPUSH SCH (18:18)
--- NOTE | 2017-08-25 18:25 | PN ---
Progress Note (short form) - Note Progress Note: NEUROLOGY FOLLOW-UP: Event reviewed. Patient examined. S/P ORIF Right Bimalleolar fracture today. Remains non-weight baring (but non-compliant). Exam: continues to show sensory dystaxia on the right on sustention. IMP: Still with Right hemisensory dysfunction s/p Left thalamic CVA Although this is mild on exam it will cause unsteady gait and some degree of imbalance when Pt. begins rehab for his fracture. Suggest: When patient begins weight baring institute P.T. with a WALKER. Resume plavix 75 mg PO qd. Thank you very much, David Felix MD
[2017-08-25] MEDS: ATORVASTATIN CA 80 MG TABLET (FP) PO SCH (21:26)
[2017-08-25] MEDS: HEPARIN NA (PORCINE) 5,000 UNITS/ML 1ML VIAL SQ SCH (21:26)
[2017-08-25] MEDS: INSULIN DETEMIR 100 UNITS/ML MDV SQ SCH (21:29)
[2017-08-26] MEDS: CEFAZOLIN 1 GM PUSH 1 GM/10 ML DISP.SYRIN IVPUSH SCH (01:26)
[2017-08-26] MEDS: INSULIN SLIDING SCALE (NOVOLOG) 1 VIAL SQ SCH ×4 (06:31→21:32)
[2017-08-26] MEDS: INSULIN (NOVOLOG MIX 70/30) 100 UNITS/ML MDV SQ SCH ×2 (07:37→17:38)
[2017-08-26 08:02] LABS: BASOPHIL 0.4 % (0-2.0); EOSINOPHIL 0.2 % (0-4.5); MCH 29.5 pg (25.7-33.7); MCHC 34.3 g/dl (32.0-35.9); MEAN CELL VOLUME 86.1 fl (80-96); NEUTROPHILS 72.4 % (42.8-82.8); PLATELET COUNT 166 K/MM3 (134-434); RDW 12.9 % (11.9-15.9); WHITE BLOOD COUNT 12.5 K/mm3 (4.0-10.0)
--- NOTE | 2017-08-26 08:13 | PN ---
Teaching Attending Note Name of Resident: Ajay Perez ATTENDING PHYSICIAN STATEMENT I saw and evaluated the patient. I reviewed the resident's note and discussed the case with the resident. I agree with the resident's findings and plan as documented. SUBJECTIVE: Patient seen and examined. leg pain well controlled. No new complaints. OBJECTIVE: Vital Signs Period Temp Pulse Resp BP Sys/Garza Pulse Ox Last 24 Hr 97.6 F-101.3 F 85-115 15-20 122-162/66-97 95-100 Intake & Output 08/23/17 08/24/17 08/25/17 08/26/17 23:59 23:59 23:59 23:59 Intake Total 260 893 9400 Output Total 557 743 2888 300 Balance -250 250 -95 -300 General: lying in bed in no acute distress Chest: CTAB, no rales or wheezing CVS: S1S2 regular Abdomen: soft, NT, ND, positive bowel sounds Extremities: RLE dressing/cast, positive pulses, some swelling, but able to move right toes freely Home Medication List Medication Instructions Recorded Confirmed Type Aspirin [Children's Aspirin] 81 mg PO DAILY 08/18/17 08/21/17 History Insulin Degludec [Tresiba 15 unit SQ HS 08/18/17 08/21/17 History Flextouch U-100] Active Medications Generic Name Dose Route Start Last Admin Trade Name Freq PRN Reason Stop Dose Admin Acetaminophen 650 mg 08/25/17 10:34 Tylenol - PO Q4H PRN PAIN Amlodipine Besylate 5 mg 08/25/17 12:00 08/25/17 12:07 Norvasc - PO 5 mg DAILY MANOJ Administration Aspirin 81 mg 08/26/17 10:00 Ecotrin - PO DAILY MANOJ Atorvastatin Calcium 80 mg 08/25/17 22:00 08/25/17 21:26 Lipitor - PO 80 mg HS MANOJ Administration Clopidogrel Bisulfate 75 mg 08/26/17 10:00 Plavix - PO DAILY MANOJ Heparin Sodium (Porcine) 5,000 unit 08/25/17 22:00 08/25/17 21:26 Heparin - SQ 5,000 unit BID MANOJ Administration Insulin Aspart 35 units 08/25/17 16:30 08/26/17 07:37 Novolog Mix 70/30 Vial SQ 35 units BIDAC MANOJ Administration Insulin Aspart 1 vial 08/25/17 11:00 08/26/17 06:31 Novolog Vial Sliding Scale - SQ Not Given ACHS [facility] Protocol Insulin Detemir 15 units 08/25/17 22:00 08/25/17 21:29 Levemir Vial SQ 15 units HS MANOJ Administration Losartan Potassium 100 mg 08/25/17 12:00 08/25/17 12:07 Cozaar - PO 100 mg DAILY MANOJ Administration Oxycodone HCl 10 mg 08/25/17 10:34 Roxicodone - PO Q4H PRN PAIN Senna/Docusate Sodium 2 tablet 08/25/17 10:16 Pericolace - PO HS PRN CONSTIPATION Laboratory Results - last 24 hr 08/25/17 08/25/17 08/26/17 18:02 21:25 05:39 WBC RBC Hgb Hct MCV MCH MCHC RDW Plt Count MPV Neutrophils % Lymphocytes % Monocytes % Eosinophils % Basophils % Sodium Potassium Chloride Carbon Dioxide Anion Gap BUN Creatinine POC Glucometer 236 178 134 Random Glucose Calcium 08/26/17 08/26/17 08/26/17 06:00 06:00 11:38 WBC 12.5 H RBC 4.60 Hgb 13.6 Hct 39.6 MCV 86.1 MCH 29.5 MCHC 34.3 RDW 12.9 Plt Count 166 MPV 9.0 Neutrophils % 72.4 Lymphocytes % 15.2 Monocytes % 11.8 H Eosinophils % 0.2 Basophils % 0.4 Sodium 139 Potassium 3.7 Chloride 102 Carbon Dioxide 23 Anion Gap 14 BUN 16 Creatinine 1.1 D POC Glucometer 137 Random Glucose 132 H D Calcium 8.3 L CXR reviewed, no acute process urinalysis/Urine cultures pending ASSESSMENT AND PLAN: 67 yom with HTN, HLD, uncontrolled IDDM, recently admitted to [facility] with left posterior thalamic/internal capsule CVA refused SNF, comes back with fall and right ankle trimalleolar fracture planned for ORIF. -Right ankle trimalleolar fracture s/p fall, s/p closed reduction, now LAURO 08/25 -SIRS -Recent Left posterior Thalamic/internal capsule CVA with residual minimal RUE sensory deficits/earlier RLE weakness -Uncontrolled HTN -IDDM -HLD Plan: s/p ORIF 08/25, doing well post operatively, pain control oxycodone/ acetaminophen prn, NWB RLE, bowel regimen. Taper narcotics as tolerated Fevers overnight with related tachycardia. CXR with no concerning new process. Check urinalysis/urine cultures. Encourage incentive spirometry. Monitor for recurrence and fever trend, further work up accordingly. Neurology input noted, Resume ASA/plavix as discussed with orthopedic and per neuro recs. Continue statin Novolog 70/30/levemir/ISS, diabetic diet. Continue losartan. Started on norvasc with improved BP overall. Pain control. DVTPPX dispo on hold given new fevers overnight and need for additional work up and monitoring, Patient and family continue to decline placement and risks have been explained. Plan for d/c in 24 hours if no new concerns and fever curve improved with neg work up.
--- NOTE | 2017-08-26 08:52 | PN ---
Physical Exam: SUBJECTIVE: Patient seen and examined. Mandarin speaking medical student present for translation. Pt states he feels fine. Pain is tolerable. No cough, headache, fevers, chills, belly pain. Passed flatus yesterday. Fever last night 101.3. OBJECTIVE: Vital Signs Period Temp Pulse Resp BP Sys/Garza Pulse Ox Last 24 Hr 97.6 F-101.3 F 85-115 15-20 122-162/66-97 95-100 GEN: AAOx3, NAD, Lying comfortably HEENT: PERRLA, EOMi CV: S1, S2, RRR LUNG: CTABL ABD: Soft, NT, ND, normoactive BS MSK: Cast on LLE. No obvious pain. Nontender. 5/5 MSK strength in hip and knee flexion bilaterally. NEURO: No MSK or sensation deficits on either side. Gait no observed Active Medications Generic Name Dose Route Start Last Admin Trade Name Freq PRN Reason Stop Dose Admin Acetaminophen 650 mg 08/25/17 10:34 Tylenol - PO Q4H PRN PAIN Amlodipine Besylate 5 mg 08/25/17 12:00 08/25/17 12:07 Norvasc - PO 5 mg DAILY MANOJ Administration Aspirin 81 mg 08/26/17 10:00 Ecotrin - PO DAILY MANOJ Atorvastatin Calcium 80 mg 08/25/17 22:00 08/25/17 21:26 Lipitor - PO 80 mg HS MANOJ Administration Clopidogrel Bisulfate 75 mg 08/26/17 10:00 Plavix - PO DAILY MANOJ Heparin Sodium (Porcine) 5,000 unit 08/25/17 22:00 08/25/17 21:26 Heparin - SQ 5,000 unit BID MANOJ Administration Insulin Aspart 35 units 08/25/17 16:30 08/26/17 07:37 Novolog Mix 70/30 Vial SQ 35 units BIDAC MANOJ Administration Insulin Aspart 1 vial 08/25/17 11:00 08/26/17 06:31 Novolog Vial Sliding Scale - SQ Not Given ACHS [facility] Protocol Insulin Detemir 15 units 08/25/17 22:00 08/25/17 21:29 Levemir Vial SQ 15 units HS MANOJ Administration Losartan Potassium 100 mg 08/25/17 12:00 08/25/17 12:07 Cozaar - PO 100 mg DAILY MANOJ Administration Oxycodone HCl 10 mg 08/25/17 10:34 Roxicodone - PO Q4H PRN PAIN Senna/Docusate Sodium 2 tablet 08/25/17 10:16 Pericolace - PO HS PRN CONSTIPATION ASSESSMENT/PLAN: 67yo M wtih PMH TIA, dyslipidemia, HTN, DM and recent ischemic CVA presented to the ER after mechanical fall sustaining fracture to R fibula # Acute R ankle trimalleolar fx - S/p fall from recent CVA. Had ORIF 08/25. On Percocet, decreased oxy dose from 10 to 5 # Postop Fever - No subjective complaints of cough/dysuria/increased leg pain. Pt received pre- op antibiotics. However pt not using incentive spirometer. Likely 2/2 atelectasis. Tachy likely from fever. CXR shows no acute process. UA and UCx pending. Spoke to Estuardo LLAMAS, no concern for wound infection. If continues to be febrile, will consider Blood cx. # Hx of CVA - Hx of L thalamic infarct, residual gait instability, R sided numbness. Discussed w/ Dr Interiano, will continue ASA + Plavix post-op # HTN - Well controlled, continue home Losartan 100mg QD, added Norvasc 5mg daily # IDDM - Continue Levemir 15u, 70/30, with ISS # FEN - No IVF, elec wnl, NPO # PPx - HSQ TID, heparin held at night due to procedure # Dispo - Will likely d/c tmrw if vitals are stable. Continue PT. Patient and family refuse rehab, risks including paralysis were explained multiple times. d/w Dr Joanne Perez MD - PGY1 Internal Medicine Visit type - Emergency Visit Emergency Visit: No - New Patient This patient is new to me today: No - Critical Care Critical Care patient: No - Discharge Referral Referred to [facility] Med P.C.: No
[2017-08-26 08:56] LABS: CO2 23 mmol/L (21-32); CREATININE 1.1 mg/dL (0.7-1.3); GLUCOSE,RANDOM 132 mg/dL (74-106)
[2017-08-26 08:57] LABS: ANION GAP 14 (8-16); CALCIUM 8.3 mg/dL (8.5-10.1)
[2017-08-26] MEDS ORDERED: PT OWN MED DRAWER 7, Y5N ONE (09:17)
[2017-08-26] MEDS: LOSARTAN POTASSIUM 50 MG TABLET (FP) PO SCH (09:22)
[2017-08-26] MEDS: ASPIRIN COATED 81 MG TABLET.EC PO SCH (09:22)
[2017-08-26] MEDS: CLOPIDOGREL BISULFATE 75 MG TABLET (FP) PO SCH (09:22)
[2017-08-26] MEDS: HEPARIN NA (PORCINE) 5,000 UNITS/ML 1ML VIAL SQ SCH ×2 (09:23→21:25)
[2017-08-26] MEDS: amLODIPine BESYLATE 5 MG TABLET (FP) PO SCH (09:24)
[2017-08-26] MEDS ORDERED: amLODIPine BESYLATE 5 MG TABLET (FP) PO SCH (10:00)
[2017-08-26] MEDS ORDERED: LOSARTAN POTASSIUM 50 MG TABLET (FP) PO SCH (10:00)
--- NOTE | 2017-08-26 10:03 | PN ---
Progress Note (short form) - Note Progress Note: Ortho Pt seen and examined s/p right ankle orif pod #1 ' Selected Entries 08/26/17 06:34 Temperature 98.6 F Pulse Rate 90 Respiratory 20 Rate Blood Pressure 122/66 Laboratory Tests 08/26/17 06:00 WBC 12.5 H Hgb 13.6 Hct 39.6 Plt Count 166 splint intact, nvi a/p NWB with crutches pain control may d/c from ortho pov f/u in 10-14 days
[2017-08-26] MEDS ORDERED: oxyCODONE HCL 5 MG TABLET PO PRN (11:10)
--- NOTE | 2017-08-26 13:41 | MSN ---
Progress Note (short form) - Note Progress Note: SUBJECTIVE Pt seen and examined at bedside. Pt was in no acute distress and lying comfortably in bed. Another medical student served as an diplomatic interpreter/translator. Per her, pt complained of head feeling "hot," some pain in the ankle, and having mucus in the throat. Pt spiked a fever of 101.3 last night which subsided after being given Tylenol for it. Pt confirms having passed gas yesterday post surgery but no BMs. Stated pins and needles sensation on RUE is still there, likely residual side-effect of the acute CVA on 08/18. Denied any CP, palpitations, SOB , GUZMAN, cough, abdominal pain, fever, chills, nausea, vomiting, diarrhea, constipation or any urinary symptoms. OBJECTIVE Last Vital Signs Temp Pulse Resp BP Pulse Ox 99.3 F 98 H 20 127/67 97 08/26/17 08:05 08/26/17 11:40 08/26/17 08:05 08/26/17 11:40 08/25/17 21:00 GEN: AOX3, NAD, lying comfortably CV: RRR S1 S2 No MRG LUNG: CTA b/l ABD: +bowel sounds, soft, ND, NT MSK: dressing intact and dry on RLE; not warm to touch; 5/5 strength hip and knee flexion b/l; sensation intact b/l; dorsalis pedis pulse present b/l Laboratory Last Values WBC 12.5 K/mm3 (4.0-10.0) H 08/26/17 06:00 RBC 4.60 M/mm3 (4.00-5.60) 08/26/17 06:00 Hgb 13.6 GM/dL (11.7-16.9) 08/26/17 06:00 Hct 39.6 % (35.4-49) 08/26/17 06:00 MCV 86.1 fl (80-96) 08/26/17 06:00 MCH 29.5 pg (25.7-33.7) 08/26/17 06:00 MCHC 34.3 g/dl (32.0-35.9) 08/26/17 06:00 RDW 12.9 % (11.9-15.9) 08/26/17 06:00 Plt Count 166 K/MM3 (134-434) 08/26/17 06:00 MPV 9.0 fl (7.5-11.1) 08/26/17 06:00 Neutrophils % 72.4 % (42.8-82.8) 08/26/17 06:00 Lymphocytes % 15.2 % (8-40) 08/26/17 06:00 Monocytes % 11.8 % (3.8-10.2) H 08/26/17 06:00 Eosinophils % 0.2 % (0-4.5) 08/26/17 06:00 Basophils % 0.4 % (0-2.0) 08/26/17 06:00 PT with INR 12.50 SEC (9.98-11.88) H 08/22/17 06:00 INR 1.11 (0.82-1.09) 08/22/17 06:00 Sodium 139 mmol/L (136-145) 08/26/17 06:00 Potassium 3.7 mmol/L (3.5-5.1) 08/26/17 06:00 Chloride 102 mmol/L (98-107) 08/26/17 06:00 Carbon Dioxide 23 mmol/L (21-32) 08/26/17 06:00 Anion Gap 14 (8-16) 08/26/17 06:00 BUN 16 mg/dL (7-18) 08/26/17 06:00 Creatinine 1.1 mg/dL (0.7-1.3) D 08/26/17 06:00 Creat Clearance w eGFR > 60 (>60) 08/21/17 17:25 POC Glucometer 137 UNITS (80-120) 08/26/17 11:38 Random Glucose 132 mg/dL (74-106) H D 08/26/17 06:00 Calcium 8.3 mg/dL (8.5-10.1) L 08/26/17 06:00 Magnesium 2.4 mg/dL (1.8-2.4) 08/21/17 17:25 Total Bilirubin 1.3 mg/dL (0.2-1.0) H D 08/21/17 17:25 AST 39 U/L (15-37) H D 08/21/17 17:25 ALT 35 U/L (12-78) D 08/21/17 17:25 Alkaline Phosphatase 107 U/L (45-117) 08/21/17 17:25 Total Protein 7.8 g/dl (6.4-8.2) 08/21/17 17:25 Albumin 3.8 g/dl (3.4-5.0) 08/21/17 17:25 Urine Color Lt. yellow 08/21/17 18:40 Urine Appearance Clear 08/21/17 18:40 Urine pH 6.0 (5.0-8.0) 08/21/17 18:40 Ur Specific [place] 1.010 (1.001-1.035) 08/21/17 18:40 Urine Protein Negative (NEGATIVE) 08/21/17 18:40 Urine Glucose (UA) 3+ (NEGATIVE) H 08/21/17 18:40 Urine Ketones 1+ (NEGATIVE) H 08/21/17 18:40 Urine Blood Trace-inta (NEGATIVE) 08/21/17 18:40 Urine Nitrite Negative (NEGATIVE) 08/21/17 18:40 Urine Bilirubin Negative (NEGATIVE) 08/21/17 18:40 Urine Urobilinogen 0.2 mg/dL (0.2-1.0) 08/21/17 18:40 Ur Leukocyte Esterase Negative (NEGATIVE) 08/21/17 18:40 Anti-A Titer Cancelled 08/21/17 17:25 Blood Type AB POSITIVE 08/22/17 06:00 Antibody Screen Negative 08/22/17 06:00 Spec Expiration Date Cancelled 08/21/17 17:25 Home Medications Medication Instructions Recorded Insulin (Novolog 70/30) [Novolog 32 units SQ BIDAC #7 pen 08/30/14 Mix 70/30 Flexpen -] Losartan Potassium [Cozaar -] 100 mg PO DAILY #30 tablet 08/30/14 Aspirin [Children's Aspirin] 81 mg PO DAILY 08/18/17 Insulin Degludec [Tresiba 15 unit SQ HS 08/18/17 Flextouch U-100] Atorvastatin Ca [Lipitor] 80 mg PO HS #30 tab 08/20/17 Clopidogrel Bisulfate [Plavix -] 75 mg PO DAILY #30 tablet 08/20/17 AP Pt is a 67y/o M with PMHx of TIA, HTN, DM, CAD, HLD, and a recent CVA who presented to the ED with R ankle pain s/p mechanical fall, found to have a trimalleolar fracture. 1. Post-op fever -spiked a temperature of 101.3 and tachy at 107 bpm overnight; afebrile since then but HR still ranging on the tachycardic side -no complaints of SOB, cough, or urinary symptoms -mild leukocytosis, most likely reactive and normal physiologic response to surgery -CXR neg; UA and urine cx pending -pt was also taught appropriate use of the incentive spirometer present as bedside and advised to periodically use it to prevent atelectasis -will monitor for fever and other signs of infection; blood cx if pt spikes another fever 2. Acute R ankle fracture s/p mechanical fall -R foot Xray showed moderately displaced trimalleolar fracture with widened mortis -s/p R ankle ORIF on 08/25; Non-weight bearing to RLE with crutches -plavix and aspirin restarted -pain well-controlled with acetaminophen/oxycodone PRN; oxycodone reduced from 10 mg to 5 mg -recent acute posterolateral L thalamic with residual R sided weakness and unsteady gait; pt is still agreeable to home PT and will be D/Keven home with JONATHAN CHRISTIANSEN 3. L posterolateral thalamic infarct -clinically stable; some residual RUE paresthesia; no evident facial droop or slurring of speech -continue lipitor; plavix and aspirin resumed today 4. HTN -160/83 this AM -continue home dose of losartan 100 mg; 5 mg norvasc added to regime on 08/24 5. DM -HbA1C: 9.6 -ISS; BGM ACHS -continue home meds - novolog 70/30, levemir 15 u 6. HLD -continue lipitor 80 mg QD 7. FEN -No IVFs -lytes wnl -renal diet 8. PPx -DVT: Heparin SQ TID -No GI Ppx Dispo: S/p R ankle ORIF; spiked a fever overnight; will monitor for signs of infection; if afebrile for 24 hr, can be D/Keven home; refused SNF for rehab but is agreeable to home PT with V[facility] KULDIP Vaughan, MS3
[2017-08-26] MEDS ORDERED: INSULIN (NOVOLOG MIX 70/30) 100 UNITS/ML MDV SQ ONE (17:41)
[2017-08-26] MEDS: ATORVASTATIN CA 80 MG TABLET (FP) PO SCH (21:26)
[2017-08-26] MEDS: INSULIN DETEMIR 100 UNITS/ML MDV SQ SCH (21:26)
[2017-08-27] MEDS: INSULIN SLIDING SCALE (NOVOLOG) 1 VIAL SQ SCH ×4 (06:14→21:56)
[2017-08-27] MEDS: INSULIN (NOVOLOG MIX 70/30) 100 UNITS/ML MDV SQ SCH ×2 (06:14→16:48)
[2017-08-27 07:30] LABS: BASOPHIL 0.4 % (0-2.0); EOSINOPHIL 0.6 % (0-4.5); MCH 29.9 pg (25.7-33.7); MCHC 34.6 g/dl (32.0-35.9); MEAN CELL VOLUME 86.4 fl (80-96); MEAN PLT VOLUME 8.7 fl (7.5-11.1); NEUTROPHILS 74.4 % (42.8-82.8); PLATELET COUNT 162 K/MM3 (134-434); WHITE BLOOD COUNT 13.4 K/mm3 (4.0-10.0)
[2017-08-27 08:24] LABS: URINE APPEARANCE SLCLOUDY; URINE BILIRUBIN NEGATIVE (NEGATIVE); URINE BLOOD NEGATIVE (NEGATIVE); URINE COLOR YELLOW; URINE GLUCOSE (UA) 2+ (NEGATIVE); URINE KETONE TRACE (NEGATIVE); URINE LEUK ESTERASE NEGATIVE (NEGATIVE); URINE NITRITE NEGATIVE (NEGATIVE); URINE UROBILINOGEN 4.0 E.U/dl mg/dL (0.2-1.0)
[2017-08-27 08:30] LABS: URINE PROTEIN 1+ (NEGATIVE)
[2017-08-27 08:52] LABS: URINE MUCUS RARE; URINE RBC 2 /hpf (0-3); URINE WBC 1 /hpf (3-5)
[2017-08-27] MEDS ORDERED: PT OWN MED DRAWER 7, Y5N ONE (09:10)
[2017-08-27] MEDS: LOSARTAN POTASSIUM 50 MG TABLET (FP) PO SCH (09:21)
[2017-08-27] MEDS: ASPIRIN COATED 81 MG TABLET.EC PO SCH (09:21)
[2017-08-27] MEDS: HEPARIN NA (PORCINE) 5,000 UNITS/ML 1ML VIAL SQ SCH ×2 (09:22→21:54)
[2017-08-27] MEDS: amLODIPine BESYLATE 5 MG TABLET (FP) PO SCH (09:22)
[2017-08-27] MEDS: CLOPIDOGREL BISULFATE 75 MG TABLET (FP) PO SCH (09:22)
--- NOTE | 2017-08-27 14:45 | PN ---
Progress Note (short form) - Note Progress Note: Ortho Pt seen and examined s/p right ankle orif pod #2 ' Selected Entries 08/27/17 08/27/17 08:10 09:15 Temperature 100.1 F H Respiratory 18 Rate Blood Pressure 134/72 Laboratory Tests 08/27/17 07:20 WBC 13.4 H Hgb 13.8 Hct 39.8 Plt Count 162 splint intact, nvi a/p NWB with crutches pain control may d/c from ortho pov f/u in 10-14 days
[2017-08-27 15:13] LABS: URINE LEUK ESTERASE Negative (NEGATIVE)
--- NOTE | 2017-08-27 16:23 | PN ---
Teaching Attending Note Name of Resident: Ajay Perez ATTENDING PHYSICIAN STATEMENT Time of evaluation: 10:50 AM I saw and evaluated the patient. I reviewed the resident's note and discussed the case with the resident. I agree with the resident's findings and plan as documented. SUBJECTIVE: Patient seen and examined. No complaints. Denies pain currently. OBJECTIVE: Vital Signs Period Temp Pulse Resp BP Sys/Garza Pulse Ox Last 24 Hr 98.2 F-100.1 F 92-101 18-20 109-148/63-74 97 Intake & Output 08/24/17 08/25/17 08/26/17 08/27/17 23:59 23:59 23:59 23:59 Intake Total 600 1355 600 450 Output Total 350 1450 750 475 Balance 250 -95 -150 -25 General: sitting in bed in no acute distress CVS:S1S2 regular Chest: CTAB, no rales or wheezing, good air entry bilaterally abdomen: soft, NT, ND, positive bowel sounds, no CVA tenderness Extremities: RLE in dressing, some erythema around wound jaxon with swelling Home Medication List Medication Instructions Recorded Confirmed Type Aspirin [Children's Aspirin] 81 mg PO DAILY 08/18/17 08/21/17 History Insulin Degludec [Tresiba 15 unit SQ HS 08/18/17 08/21/17 History Flextouch U-100] Active Medications Generic Name Dose Route Start Last Admin Trade Name Freq PRN Reason Stop Dose Admin Acetaminophen 650 mg 08/25/17 10:34 08/26/17 21:36 Tylenol - PO 650 mg Q4H PRN Administration PAIN Amlodipine Besylate 5 mg 08/25/17 12:00 08/27/17 09:22 Norvasc - PO 5 mg DAILY MANOJ Administration Aspirin 81 mg 08/26/17 10:00 08/27/17 09:21 Ecotrin - PO 81 mg DAILY MANOJ Administration Atorvastatin Calcium 80 mg 08/25/17 22:00 08/26/17 21:26 Lipitor - PO 80 mg HS MANOJ Administration Clopidogrel Bisulfate 75 mg 08/26/17 10:00 08/27/17 09:22 Plavix - PO 75 mg DAILY MANOJ Administration Heparin Sodium (Porcine) 5,000 unit 08/25/17 22:00 08/27/17 09:22 Heparin - SQ 5,000 unit BID MANOJ Administration Insulin Aspart 35 units 08/25/17 16:30 08/27/17 06:14 Novolog Mix 70/30 Vial SQ Not Given BIDAC MANOJ Insulin Aspart 1 vial 08/25/17 11:00 08/27/17 12:00 Novolog Vial Sliding Scale - SQ 2 units ACHS MANOJ Administration Protocol Insulin Detemir 15 units 08/25/17 22:00 08/26/17 21:26 Levemir Vial SQ 15 units HS MANOJ Administration Losartan Potassium 100 mg 08/25/17 12:00 08/27/17 09:21 Cozaar - PO 100 mg DAILY MANOJ Administration Oxycodone HCl 5 mg 08/26/17 11:10 08/26/17 21:35 Roxicodone - PO 5 mg Q4H PRN Administration PAIN Senna/Docusate Sodium 2 tablet 08/25/17 10:16 Pericolace - PO HS PRN CONSTIPATION Laboratory Results - last 24 hr 08/26/17 08/26/17 08/26/17 17:00 17:23 21:24 WBC RBC Hgb Hct MCV MCH MCHC RDW Plt Count MPV Neutrophils % Lymphocytes % Monocytes % Eosinophils % Basophils % POC Glucometer 183 218 Urine Color Yellow Urine Appearance Slcloudy Urine pH 6.0 Ur Specific [place] 1.020 Urine Protein 1+ H Urine Glucose (UA) 2+ H Urine Ketones Trace H Urine Blood Negative Urine Nitrite Negative Urine Bilirubin Negative Urine Urobilinogen 4.0 e.u/dl Urine WBC (Auto) 1 Urine RBC (Auto) 2 Urine Mucus Rare 08/27/17 08/27/17 08/27/17 06:06 07:20 11:18 WBC 13.4 H RBC 4.61 Hgb 13.8 Hct 39.8 MCV 86.4 MCH 29.9 MCHC 34.6 RDW 13.0 Plt Count 162 MPV 8.7 Neutrophils % 74.4 Lymphocytes % 14.4 Monocytes % 10.2 Eosinophils % 0.6 D Basophils % 0.4 POC Glucometer 85 195 Urine Color Urine Appearance Urine pH Ur Specific [place] Urine Protein Urine Glucose (UA) Urine Ketones Urine Blood Urine Nitrite Urine Bilirubin Urine Urobilinogen Urine WBC (Auto) Urine RBC (Auto) Urine Mucus urinalysis noted CXR no acute process ASSESSMENT AND PLAN: 67 yom with HTN, HLD, uncontrolled IDDM, recently admitted to [facility] with left posterior thalamic/internal capsule CVA refused SNF, comes back with fall and right ankle trimalleolar fracture planned for ORIF. -Right ankle trimalleolar fracture s/p fall, s/p closed reduction, now LAURO 08/25 -SIRS -Recent Left posterior Thalamic/internal capsule CVA with residual minimal RUE sensory deficits/earlier RLE weakness -Uncontrolled HTN -IDDM -HLD Plan: s/p ORIF 08/25, doing well post operatively, pain control oxycodone/ acetaminophen prn, NWB RLE, bowel regimen. Taper narcotics as tolerated Fever curve improved. No clinical s/s concerning for infection currently. CXR/ urinalysis negative. SOme leucocytosis, ?reactive from recent surgery, Trend WBC and fevers fornow. Neurology input noted, Resumed ASA/plavix as discussed with orthopedic and per neuro recs. Continue statin Novolog 70/30/levemir/ISS, diabetic diet. Continue losartan. Started on norvasc with improved BP overall. Pain control. DVTPPX dispo plan for d/c in 24 hours if no high grade fevers and no new concerns noted overnight.
--- NOTE | 2017-08-27 16:36 | PN ---
Physical Exam: SUBJECTIVE: Patient seen and examined. No complaints. Continues to spike fevers. OBJECTIVE: Vital Signs Period Temp Pulse Resp BP Sys/Garza Pulse Ox Last 24 Hr 98.2 F-100.1 F 92-101 18-20 109-148/63-74 97 GEN: AAOx3, NAD, Lying comfortably HEENT: PERRLA, EOMi CV: S1, S2, RRR LUNG: CTABL ABD: Soft, NT, ND, normoactive BS MSK: Cast on LLE. No obvious pain. Nontender. 5/5 MSK strength in hip and knee flexion bilaterally. NEURO: No MSK or sensation deficits on either side. Gait no observed Active Medications Generic Name Dose Route Start Last Admin Trade Name Freq PRN Reason Stop Dose Admin Acetaminophen 650 mg 08/25/17 10:34 08/26/17 21:36 Tylenol - PO 650 mg Q4H PRN Administration PAIN Amlodipine Besylate 5 mg 08/25/17 12:00 08/27/17 09:22 Norvasc - PO 5 mg DAILY MANOJ Administration Aspirin 81 mg 08/26/17 10:00 08/27/17 09:21 Ecotrin - PO 81 mg DAILY MANOJ Administration Atorvastatin Calcium 80 mg 08/25/17 22:00 08/26/17 21:26 Lipitor - PO 80 mg HS MANOJ Administration Clopidogrel Bisulfate 75 mg 08/26/17 10:00 08/27/17 09:22 Plavix - PO 75 mg DAILY MANOJ Administration Heparin Sodium (Porcine) 5,000 unit 08/25/17 22:00 08/27/17 09:22 Heparin - SQ 5,000 unit BID MANOJ Administration Insulin Aspart 35 units 08/25/17 16:30 08/27/17 06:14 Novolog Mix 70/30 Vial SQ Not Given BIDAC MANOJ Insulin Aspart 1 vial 08/25/17 11:00 08/27/17 12:00 Novolog Vial Sliding Scale - SQ 2 units ACHS MANOJ Administration Protocol Insulin Detemir 15 units 08/25/17 22:00 08/26/17 21:26 Levemir Vial SQ 15 units HS MANOJ Administration Losartan Potassium 100 mg 08/25/17 12:00 08/27/17 09:21 Cozaar - PO 100 mg DAILY MANOJ Administration Senna/Docusate Sodium 2 tablet 08/25/17 10:16 Pericolace - PO HS PRN CONSTIPATION ASSESSMENT/PLAN: 67yo M wtih PMH TIA, dyslipidemia, HTN, DM and recent ischemic CVA presented to the ER after mechanical fall sustaining fracture to R fibula # Acute R ankle trimalleolar fx - S/p fall from recent CVA. Had ORIF 08/25. Tylenol for pain control. Walks 50 feet w/ PT # Postop Fever - Likely normal post-surgical fever. WBC increasing. No subjective complaints. CXR negative. UA negative. No signs of wound infection. If continues to be febrile, will consider Blood cx. # Hx of CVA - Hx of L thalamic infarct, residual gait instability, R sided numbness. On ASA, on plavix. # HTN - Well controlled, continue home Losartan 100mg QD + Norvasc 5mg daily # IDDM - Continue Levemir 15u, 70/30, with ISS # FEN - No IVF, elec wnl, NPO # PPx - HSQ BID, no GI, PT walking # Dispo - Continue following vitals. If patient afebrile, can d/c tmrw. Patient and family continue to refuse rehab d/w Dr Joanne Perez MD - PGY1 Internal Medicine Visit type - Emergency Visit Emergency Visit: No - New Patient This patient is new to me today: No - Critical Care Critical Care patient: No - Discharge Referral Referred to [facility] No
[2017-08-27] MEDS ORDERED: INSULIN (NOVOLOG MIX 70/30) 100 UNITS/ML MDV SQ ONE (17:02)
--- NOTE | 2017-08-27 17:13 | MSN ---
Progress Note (short form) - Note Progress Note: SUBJECTIVE Pt seen and examined at bedside. Pt was in no acute distress and lying comfortably in bed. Pt had no complaints but continued to endorse low grade fever. RLE dressing was changed and examined the ankle seems to be healing well. No drainage or pus noted, was not warm to touch. Pt denied any pain during the dressing change. OBJECTIVE Last Vital Signs Temp Pulse Resp BP Pulse Ox 98.6 F 101 H 19 109/63 97 08/27/17 15:30 08/27/17 15:30 08/27/17 15:30 08/27/17 15:30 08/26/17 21:00 GEN: AOX3, NAD, lying comfortably CV: RRR S1 S2 No MRG LUNG: CTA b/l ABD: +bowel sounds, soft, ND, NT MSK: dressing intact and dry on RLE; not warm to touch; 5/5 strength hip and knee flexion b/l; sensation intact b/l; dorsalis pedis pulse present b/l R ankle: not warm to touch; no drainage or pus noted; slight erythema and mild swelling noted Laboratory Last Values WBC 13.4 K/mm3 (4.0-10.0) H 08/27/17 07:20 RBC 4.61 M/mm3 (4.00-5.60) 08/27/17 07:20 Hgb 13.8 GM/dL (11.7-16.9) 08/27/17 07:20 Hct 39.8 % (35.4-49) 08/27/17 07:20 MCV 86.4 fl (80-96) 08/27/17 07:20 MCH 29.9 pg (25.7-33.7) 08/27/17 07:20 MCHC 34.6 g/dl (32.0-35.9) 08/27/17 07:20 RDW 13.0 % (11.9-15.9) 08/27/17 07:20 Plt Count 162 K/MM3 (134-434) 08/27/17 07:20 MPV 8.7 fl (7.5-11.1) 08/27/17 07:20 Neutrophils % 74.4 % (42.8-82.8) 08/27/17 07:20 Lymphocytes % 14.4 % (8-40) 08/27/17 07:20 Monocytes % 10.2 % (3.8-10.2) 08/27/17 07:20 Eosinophils % 0.6 % (0-4.5) D 08/27/17 07:20 Basophils % 0.4 % (0-2.0) 08/27/17 07:20 PT with INR 12.50 SEC (9.98-11.88) H 08/22/17 06:00 INR 1.11 (0.82-1.09) 08/22/17 06:00 Sodium 139 mmol/L (136-145) 08/26/17 06:00 Potassium 3.7 mmol/L (3.5-5.1) 08/26/17 06:00 Chloride 102 mmol/L (98-107) 08/26/17 06:00 Carbon Dioxide 23 mmol/L (21-32) 08/26/17 06:00 Anion Gap 14 (8-16) 08/26/17 06:00 BUN 16 mg/dL (7-18) 08/26/17 06:00 Creatinine 1.1 mg/dL (0.7-1.3) D 08/26/17 06:00 Creat Clearance w eGFR > 60 (>60) 08/21/17 17:25 POC Glucometer 300 UNITS (80-120) 08/27/17 16:44 Random Glucose 132 mg/dL (74-106) H D 08/26/17 06:00 Calcium 8.3 mg/dL (8.5-10.1) L 08/26/17 06:00 Magnesium 2.4 mg/dL (1.8-2.4) 08/21/17 17:25 Total Bilirubin 1.3 mg/dL (0.2-1.0) H D 08/21/17 17:25 AST 39 U/L (15-37) H D 08/21/17 17:25 ALT 35 U/L (12-78) D 08/21/17 17:25 Alkaline Phosphatase 107 U/L (45-117) 08/21/17 17:25 Total Protein 7.8 g/dl (6.4-8.2) 08/21/17 17:25 Albumin 3.8 g/dl (3.4-5.0) 08/21/17 17:25 Urine Color Yellow 08/26/17 17:23 Urine Appearance Slcloudy 08/26/17 17:23 Urine pH 6.0 (5.0-8.0) 08/26/17 17:23 Ur Specific [place] 1.020 (1.001-1.035) 08/26/17 17:23 Urine Protein 1+ (NEGATIVE) H 08/26/17 17:23 Urine Glucose (UA) 2+ (NEGATIVE) H 08/26/17 17:23 Urine Ketones Trace (NEGATIVE) H 08/26/17 17:23 Urine Blood Negative (NEGATIVE) 08/26/17 17: Urine Nitrite Negative (NEGATIVE) 08/26/17 17: Urine Bilirubin Negative (NEGATIVE) 08/26/17 17: Urine Urobilinogen 4.0 e.u/dl mg/dL (0.2-1.0) 08/26/17 17:23 Ur Leukocyte Esterase Negative (NEGATIVE) 08/21/17 18:40 Urine WBC (Auto) 1 /hpf (3-5) 08/26/17 17:23 Urine RBC (Auto) 2 /hpf (0-3) 08/26/17 17:23 Urine Mucus Rare 08/26/17 17:23 Anti-A Titer Cancelled 08/21/17 17:25 Blood Type AB POSITIVE 08/22/17 06:00 Antibody Screen Negative 08/22/17 06:00 Spec Expiration Date Cancelled 08/21/17 17:25 Home Medications Medication Instructions Recorded Insulin (Novolog 70/30) [Novolog 32 units SQ BIDAC #7 pen 08/30/14 Mix 70/30 Flexpen -] Losartan Potassium [Cozaar -] 100 mg PO DAILY #30 tablet 08/30/14 Aspirin [Children's Aspirin] 81 mg PO DAILY 08/18/17 Insulin Degludec [Tresiba 15 unit SQ HS 08/18/17 Flextouch U-100] Atorvastatin Ca [Lipitor] 80 mg PO HS #30 tab 08/20/17 Clopidogrel Bisulfate [Plavix -] 75 mg PO DAILY #30 tablet 08/20/17 AP Pt is a 67y/o M with PMHx of TIA, HTN, DM, CAD, HLD, and a recent CVA who presented to the ED with R ankle pain s/p mechanical fall, found to have a trimalleolar fracture. 1. Post-op fever -still endorsing a low grade fever; likely normal physiological response post -op; no clinical symptoms of infection; wound seems to be healing well and no signs of infection noted -CXR neg; UA and urine cx neg; no complaints of SOB, cough, or urinary symptoms -conitnued leukocytosis, most likely reactive and normal physiologic response to surgery -will trend WBC and monitor for fever and other signs of infection; blood cx if pt spikes another fever 2. Acute R ankle fracture s/p mechanical fall -R foot Xray showed moderately displaced trimalleolar fracture with widened mortis -s/p R ankle ORIF on 08/25; Non-weight bearing to RLE with crutches -plavix and aspirin restarted -pain well-controlled with acetaminophen/oxycodone PRN; oxycodone reduced from 10 mg to 5 mg -recent acute posterolateral L thalamic with residual R sided weakness and unsteady gait; pt is still agreeable to home PT and will be D/Keven home with JONATHAN CHRISTIANSEN 3. L posterolateral thalamic infarct -clinically stable; some residual RUE paresthesia; no evident facial droop or slurring of speech -continue lipitor; plavix and aspirin resumed today 4. HTN -160/83 this AM -continue home dose of losartan 100 mg; 5 mg norvasc added to regime on 08/24 5. DM -HbA1C: 9.6 -ISS; BGM ACHS -continue home meds - novolog 70/30, levemir 15 u 6. HLD -continue lipitor 80 mg QD 7. FEN -No IVFs -lytes wnl -renal diet 8. PPx -DVT: Heparin SQ TID -No GI Ppx Dispo: S/p R ankle ORIF on 08/25; endorses a low grade fever and upward trending WBC count; will monitor for signs of infection; if afebrile overnight, can be D/ Keven home tomorrow; refused SNF for rehab but is agreeable to home PT with [facility] KULDIP Vaughan, MS3
[2017-08-27] MEDS ORDERED: INSULIN (NOVOLOG) ASPART 100 UNITS/ML 10ML VIAL ONE (21:01)
[2017-08-27] MEDS: ATORVASTATIN CA 80 MG TABLET (FP) PO SCH (21:55)
[2017-08-27] MEDS: INSULIN DETEMIR 100 UNITS/ML MDV SQ SCH (21:55)
[2017-08-28] MEDS: INSULIN SLIDING SCALE (NOVOLOG) 1 VIAL SQ SCH ×2 (06:15→11:06)
[2017-08-28] MEDS: INSULIN (NOVOLOG MIX 70/30) 100 UNITS/ML MDV SQ SCH (06:23)
[2017-08-28 07:10] LABS: MCHC 34.8 g/dl (32.0-35.9); MEAN CELL VOLUME 86.2 fl (80-96); MEAN PLT VOLUME 8.8 fl (7.5-11.1); PLATELET COUNT 168 K/MM3 (134-434); RDW 13.2 % (11.9-15.9); WHITE BLOOD COUNT 10.6 K/mm3 (4.0-10.0)
[2017-08-28] MEDS ORDERED: INSULIN (NOVOLOG) ASPART 100 UNITS/ML 10ML VIAL ONE (07:42)
[2017-08-28] MEDS: amLODIPine BESYLATE 5 MG TABLET (FP) PO SCH (09:28)
[2017-08-28] MEDS: CLOPIDOGREL BISULFATE 75 MG TABLET (FP) PO SCH (09:28)
[2017-08-28] MEDS: HEPARIN NA (PORCINE) 5,000 UNITS/ML 1ML VIAL SQ SCH (09:28)
[2017-08-28] MEDS: LOSARTAN POTASSIUM 50 MG TABLET (FP) PO SCH (09:28)
[2017-08-28] MEDS: ASPIRIN COATED 81 MG TABLET.EC PO SCH (09:29)
--- NOTE | 2017-08-28 10:10 | PN ---
Progress Note (short form) - Note Progress Note: Ortho Pt seen and examined s/p right ankle orif pod #3 ' Selected Entries 08/28/17 07:10 Temperature 97.6 F Pulse Rate 88 Respiratory 20 Rate Blood Pressure 125/70 Laboratory Tests 08/28/17 06:30 WBC 10.6 H Hgb 12.8 Hct 37.0 Plt Count 168 splint intact, nvi a/p NWB with crutches pain control d/c home today f/u in 10-14 days
--- NOTE | 2017-08-28 12:53 | DS ---
Physical Exam: SUBJECTIVE: Patient seen and examined, no complaints, pain well controlled. OBJECTIVE: Vital Signs Period Temp Pulse Resp BP Sys/Garza Pulse Ox Last 24 Hr 97.6 F-100.6 F 88-101 18-20 109-131/63-70 PHYSICAL EXAM GENERAL: The patient is awake, alert, and fully oriented, in no acute distress. HEAD: Normal with no signs of trauma. EYES: PERRL, extraocular movements intact, sclera anicteric, conjunctiva clear. NECK: Trachea midline, full range of motion, supple. LUNGS: Breath sounds equal, clear to auscultation bilaterally, no wheezes, no crackles, no accessory muscle use. HEART: Regular rate and rhythm, S1, S2 ABDOMEN: Soft, nontender, nondistended, normoactive bowel sounds, no guarding, no rebound EXTREMITIES: Right leg dressing intact, no surrounding edema, moving toes well, positive DP pulses, no calf tenderness bilaterally Neurological: Mild right upward drift with sensory dystaxia, unchanged exam from prior PSYCH: Normal mood, normal affect. SKIN: Warm, dry, normal turgor, no rashes or lesions noted. LABS Laboratory Results - last 24 hr 08/26/17 08/27/17 08/27/17 17:23 16:44 21:51 WBC RBC Hgb Hct MCV MCH MCHC RDW Plt Count MPV POC Glucometer 300 285 Ur Leukocyte Esterase Negative 08/28/17 08/28/17 08/28/17 06:13 06:30 12:03 WBC 10.6 H RBC 4.29 Hgb 12.8 Hct 37.0 MCV 86.2 MCH 30.0 MCHC 34.8 RDW 13.2 Plt Count 168 MPV 8.8 POC Glucometer 103 140 Ur Leukocyte Esterase HOSPITAL COURSE: Date of Admission:08/21/17 Date of Discharge: 08/28/17 Minutes to complete discharge: 45 Discharge Summary Reason For Visit: CVA, BIMALLEOLAR FRACTURE Current Active Problems Bimalleolar fracture (Acute) Right sided weakness (Acute) Hospital Course: 67 yom with HTN, HLD, uncontrolled IDDM, recently admitted to [facility] with left posterior thalamic/internal capsule CVA refused SNF, comes back with fall and right ankle trimalleolar fracture. patient received closed reduction on admission. Neurology was consulted and his Aspirin and plavix were held in the pre-operative period. He received ORIF with no immediate complications. He has post operative fever, one episode 101.3 on post op day 1, his fevers have improved with no further high grade spikes. He had CXR and urinalysis that were negative for infection. he was evaluated by orthopedic with no concerns for wound infection. he had no new calf tenderness, hypoxia, chest pain or respiratory symptoms and no focal signs or symptoms concerning for infection. His fevers have improved. Suspected from atelectasis, he was encourage incentive spirometry and to return if new fevers, or concerns were noted. Patient and family adamantly refused JONATHAN placement. Multiple discussions were held and risk of falls, recurrent fractures, head bleed and were explained. patient and family relayed full understanding of the risks but insisted that patient be discharged home. Home VNS has been arranged and he will be going home with crutches, home PT and 24 hour assist and supervision. his aspirin and plavix have been resumed with no concerns. He was noted hypertensive and norvasc has been added to his regimen. His pain is under good control currently. Condition: Good - Instructions Diet, Activity, Other Instructions: You were admitted for a fracture in your right foot. You received surgery for the fracture. Currently you are recommended no weight bearing on your right leg and continue with home physical therapy and follow up with orthopedic Dr. Rosales in 1 week. Cover the dressing while showering and follow up with orthopedic in 1 week. Also you were noted with fevers which have improved and your blood counts are normal. If you notice worsening fevers, new cough, leg swelling, worsening pain, urinary symptoms, belly pain or any new concerns, please call 911 or come to the ED. You have been started on new BP medication Amlodipine 5 mg daily and your BP has improved. Advise home BP monitoring and notify doctor if SBP (upper BP) < 100 or persistently > 140 or any dizziness or swelling noted. You have been recommended short term rehabilitation by physical therapy and multiple discussions have been held to explain the need for the same. However, you and family wish to go home. Please note that you will be needing 24 hour supervision and assistance for now and continue to be at a risk for recurrent falls which may result in further fractures, head bleed or even . Risks have been explained multiple times and you and family have relayed full understanding of the risks. Medication changes: New medication Amlodipine for BP (script has been sent to pharmacy [facility] on [address]). Follow Up: Primary Care provider in [address] Rosales in 10-14 days. Neurology in 1 month. Referrals: David Interiano MD [Staff Physician] - 2 Weeks Cathy Erazo [Primary Care Provider] - 1 Week Disposition: VNS/HOME HEALTH CARE - Home Medications Comprehensive Discharge Medication List: Ambulatory Orders Insulin (Novolog 70/30) [Novolog Mix 70/30 Flexpen -] 32 units SQ BIDAC #7 pen 08/30/14 Losartan Potassium [Cozaar -] 100 mg PO DAILY #30 tablet 08/30/14 Aspirin [Children's Aspirin] 81 mg PO DAILY 08/18/17 Insulin Degludec [Tresiba Flextouch U-100] 15 unit SQ HS 08/18/17 Atorvastatin Ca [Lipitor] 80 mg PO HS #30 tab 08/20/17 Clopidogrel Bisulfate [Plavix -] 75 mg PO DAILY #30 tablet 08/20/17 Acetaminophen [Tylenol .Regular Strength -] 650 mg PO Q4H PRN tablet 08/28/17 Amlodipine Besylate [Norvasc -] 5 mg PO DAILY #30 tablet 08/28/17 Sennosides/Docusate Sodium [Pericolace -] 2 tablet PO HS PRN #15 tablet This patient is new to me today: No Emergency Visit: No Critical Care patient: No - Discharge Referral Referred to [facility] Med P.[facility] No
[2017-08-28 14:39] VITALS: BP 120/78; PULSE 78; TEMP 98.2
== END 2017-08-28 14:47 | disposition home health service (06) | DRG 493 ==
LOC: JER 11:32 → JERFT 11:32 → JERBED 18:09 → J4S 19:03 → J8W 08-22 18:53
PROVIDERS: ADMIT Internal Medicine; ATTEND Hospitalist
PROC: 0SSF04Z Reposition Right Ankle Joint with Internal Fixation Device, Open Approach (ICD-10-PCS; principal; 2017-08-25 08:00)
DX: S82.841A Displaced bimalleolar fracture of right lower leg, initial encounter for closed fracture (principal); I69.351 Hemiplegia and hemiparesis following cerebral infarction affecting right dominant side; J98.11 Atelectasis; W19.XXXA Unspecified fall, initial encounter; Y93.9 Activity, unspecified; Y92.89 Other specified places as the place of occurrence of the external cause; Y99.9 Unspecified external cause status; E11.65 Type 2 diabetes mellitus with hyperglycemia; Z79.4 Long term (current) use of insulin; I10 Essential (primary) hypertension; E78.5 Hyperlipidemia, unspecified; R50.82 Postprocedural fever; R00.0 Tachycardia, unspecified; D72.829 Elevated white blood cell count, unspecified
CPT/HCPCS: 36415; 71010-TC; 73610-TC-RT; 73630-TC-RT; 76000-TC; 80048; 80053; 81003; 81015; 83735; 85025; 85027; 85610; 86850; 86900; 86901; 93005; 93010; 94010; 94760; 97116-GP; 97161-GP; 99284-25; J1644